=== PATIENT | female | born 1945 | race Caucasian/White ===

== ENCOUNTER → 2017-03-11 | Outpatient (CLI) | payer MEDICARE, OTHER ==
[~2017-03-11] MED LIST: ASPI81CH45 OR; LACTCAP OR; LISI10TA6 PO; METF-370 OR; METF500T PO; OME20GT GT; SIMV-8 OR
== END | disposition home or self-care (01) ==
LOC: LAB 09:10
PROVIDERS: ATTEND Family Medicine
DX: I10 Essential (primary) hypertension (principal); E78.5 Hyperlipidemia, unspecified; E11.9 Type 2 diabetes mellitus without complications
CPT/HCPCS: 36415; 83036

== ENCOUNTER → 2017-10-14 | Outpatient (CLI) | payer MEDICARE, OTHER | END | disposition home or self-care (01) | LOC: LAB 10:06 | PROVIDERS: ATTEND Family Medicine | DX: E11.22 Type 2 diabetes mellitus with diabetic chronic kidney disease (principal); I12.9 Hypertensive chronic kidney disease with stage 1 through stage 4 chronic kidney disease, or unspecified chronic kidney disease; N18.3 Chronic kidney disease, stage 3 (moderate); E78.5 Hyperlipidemia, unspecified | CPT/HCPCS: 36415; 82947; 83036 ==

== ENCOUNTER → 2018-01-26 | Outpatient (CLI) | payer MEDICARE, OTHER ==
[2018-01-26 10:04] LABS: Basophils # (auto) 0 uL; Basophils % (auto) 0.7 % (0.0-2.0); Eosinophils # (auto) 0.1 uL; Eosinophils % (auto) 2.7 % (0.0-7.0); Hematocrit 40.9 % (36.0-46.0); Hemoglobin 13.4 g/dL (12.2-16.2); Lymphocytes # (auto) 1.4 uL; Lymphocytes % (auto) 29.1 % (10.0-50.0); Mean Corpuscular Hemoglobin 28.9 pg (28.0-32.0); Mean Corpuscular Hgb Conc. 32.7 g/dL (32.0-36.0); Mean Corpuscular Volume 88.3 fL (80.0-100.0); Monocytes # (auto) 0.3 uL; Monocytes % (auto) 6.5 % (0.0-12.0); Neutrophils # (auto) 2.9 uL; Nucleated Red Blood Cells % 0.1 %; Platelet Count (auto) 212 10^3/uL (140-450); Red Blood Cells 4.64 10^6/uL (4.0-5.20); Red Cell Distribution Width 15.3 % (11.8-14.3); White Blood Cell 4.8 10^3/uL (4.4-10.8)
[2018-01-26 10:27] LABS: Urine Bacteria MOD /hpf (None Seen); Urine Blood Negative /uL (Negative); Urine WBC 56 /hpf (0 - 5); Urine WBC Clumps PRESENT /hpf (None Seen)
[2018-01-26 10:33] LABS: Albumin 3.9 g/dL (3.4-5.0); BUN/Creatinine Ratio 16.7; Bilirubin, Total 0.6 mg/dL (0.2-1.0); Calcium 8.7 mg/dL (8.5-10.1); Potassium 4.5 mmol/L (3.5-5.1); Total Protein 7.7 g/dL (6.4-8.2)
== END | disposition home or self-care (01) ==
LOC: LAB 09:40
PROVIDERS: ATTEND Nurse Practitioner
DX: E11.22 Type 2 diabetes mellitus with diabetic chronic kidney disease (principal); I12.9 Hypertensive chronic kidney disease with stage 1 through stage 4 chronic kidney disease, or unspecified chronic kidney disease; N18.3 Chronic kidney disease, stage 3 (moderate); E78.5 Hyperlipidemia, unspecified
CPT/HCPCS: 36415; 80053; 80061; 81001; 82043; 82306; 82607; 83036; 84443; 85025

== ENCOUNTER 2018-03-15 14:59 | Emergency (ER) | payer MEDICARE, OTHER ==
[~2018-03-15] VITALS: Ht 152.4 cm; Wt 85.3 kg
[2018-03-15 16:14] LABS: Urine Bacteria FEW /hpf (None Seen); Urine Blood Negative /uL (Negative); Urine Specific Gravity 1.028 (1.001-1.035); Urine WBC 67 /hpf (0 - 5)
[2018-03-15] MEDS: KETOROLAC TROMETH 60MG/2ML VIAL IM ONE (16:59)
[2018-03-15] MEDS: cefTRIAXone SOD 1,000 MG VL IM ONE (16:59)
[2018-03-15] MEDS: LIDOCAINE 1% HCL (LOCAL ANESTH.) INJ 20ML MDV ONE (17:00)
[2018-03-15 17:25] VITALS: BP 115/69
== END 2018-03-15 17:25 | disposition home or self-care (01) ==
LOC: ER 15:07
DX: M54.9 Dorsalgia, unspecified (principal); E11.9 Type 2 diabetes mellitus without complications; K21.9 Gastro-esophageal reflux disease without esophagitis; E78.5 Hyperlipidemia, unspecified; I10 Essential (primary) hypertension; Z90.49 Acquired absence of other specified parts of digestive tract; Z87.442 Personal history of urinary calculi; Z79.82 Long term (current) use of aspirin; Z79.84 Long term (current) use of oral hypoglycemic drugs; Z79.899 Other long term (current) drug therapy
CPT/HCPCS: 71101; 74176; 81001; 96372; 99285; J0696; J1885; J2001

== ENCOUNTER → 2018-04-20 | Outpatient (CLI) | payer MEDICARE, OTHER ==
[2018-04-20 12:16] LABS: Urine Blood Negative /uL (Negative); Urine Specific Gravity 1.023 (1.001-1.035)
== END | disposition home or self-care (01) ==
LOC: LAB 10:17
PROVIDERS: ATTEND Internal Medicine Cardiovascular Disease
DX: N39.0 Urinary tract infection, site not specified (principal)
CPT/HCPCS: 81003; 87086

== ENCOUNTER → 2018-04-21 | Outpatient (CLI) | payer MEDICARE, OTHER | END | disposition home or self-care (01) | LOC: Rad HDHVI 16:03 | PROVIDERS: ATTEND Internal Medicine Cardiovascular Disease | DX: I35.1 Nonrheumatic aortic (valve) insufficiency (principal); I10 Essential (primary) hypertension | CPT/HCPCS: 93306 ==

== ENCOUNTER → 2018-04-28 | Outpatient (CLI) | payer MEDICARE, OTHER ==
[~2018-04-28] VITALS: Ht 152.4 cm; Wt 84.8 kg
[~2018-04-28] MED LIST changes: +ADENOSINE 71 MG in GIVE UN-DILUTED 0 ML IV ONE; +ADENOSINE 90 MG/30 ML INJ IV ONE
== END | disposition home or self-care (01) ==
LOC: Rad HDHVI 10:28
PROVIDERS: ATTEND Internal Medicine Cardiovascular Disease
DX: Z01.810 Encounter for preprocedural cardiovascular examination (principal); E11.9 Type 2 diabetes mellitus without complications; E78.2 Mixed hyperlipidemia; I47.1 Supraventricular tachycardia
CPT/HCPCS: 78452; 93005; 96374; 96375; A9500; J0153

== ENCOUNTER → 2018-07-07 | Outpatient (CLI) | payer MEDICARE, OTHER ==
[~2018-07-07] MED LIST changes: -ADENOSINE 71 MG in GIVE UN-DILUTED 0 ML IV ONE; -ADENOSINE 90 MG/30 ML INJ IV ONE
[2018-07-07 10:09] LABS: Basophils # (auto) 0 uL; Basophils % (auto) 0.6 % (0.0-2.0); Eosinophils # (auto) 0.1 uL; Eosinophils % (auto) 3.1 % (0.0-7.0); Hematocrit 40.7 % (36.0-46.0); Hemoglobin 13.5 g/dL (12.2-16.2); Lymphocytes # (auto) 1.2 uL; Lymphocytes % (auto) 33.7 % (10.0-50.0); Mean Corpuscular Hemoglobin 28.9 pg (28.0-32.0); Mean Corpuscular Hgb Conc. 33.1 g/dL (32.0-36.0); Mean Corpuscular Volume 87.5 fL (80.0-100.0); Monocytes # (auto) 0.3 uL; Monocytes % (auto) 7.5 % (0.0-12.0); Neutrophils # (auto) 1.9 uL; Neutrophils % (auto) 55.1 % (37.0-80.0); Nucleated Red Blood Cells % 0.1 %; Platelet Count (auto) 190 10^3/uL (140-450); Red Blood Cells 4.65 10^6/uL (4.0-5.20); Red Cell Distribution Width 14.8 % (11.8-14.3); White Blood Cell 3.5 10^3/uL (4.4-10.8)
[2018-07-07 10:24] LABS: Urine Bacteria FEW /hpf (None Seen); Urine Blood Negative /uL (Negative); Urine Specific Gravity 1.019 (1.001-1.035); Urine WBC 42 /hpf (0 - 5)
[2018-07-07 11:49] LABS: Albumin 3.9 g/dL (3.4-5.0); Calcium 9.1 mg/dL (8.5-10.1); Potassium 4.7 mmol/L (3.5-5.1)
[2018-07-07 11:55] LABS: BUN/Creatinine Ratio 14.5; Bilirubin, Total 0.6 mg/dL (0.2-1.0); Total Protein 7.5 g/dL (6.4-8.2)
== END | disposition home or self-care (01) ==
LOC: LAB 09:46
PROVIDERS: ATTEND Nurse Practitioner
DX: E11.9 Type 2 diabetes mellitus without complications (principal); E78.5 Hyperlipidemia, unspecified
CPT/HCPCS: 36415; 80053; 80061; 81001; 82043; 83036; 85025

== ENCOUNTER → 2018-11-10 | Outpatient (CLI) | payer MEDICARE, OTHER ==
[2018-11-10 10:01] LABS: Basophils # (auto) 0.1 uL; Basophils % (auto) 1.1 % (0.0-2.0); Eosinophils # (auto) 0.1 uL; Eosinophils % (auto) 2.8 % (0.0-7.0); Hematocrit 39.6 % (36.0-46.0); Hemoglobin 13.1 g/dL (12.2-16.2); Lymphocytes # (auto) 1.3 uL; Lymphocytes % (auto) 26.9 % (10.0-50.0); Mean Corpuscular Hemoglobin 28.6 pg (28.0-32.0); Mean Corpuscular Volume 86.8 fL (80.0-100.0); Monocytes # (auto) 0.4 uL; Monocytes % (auto) 7.5 % (0.0-12.0); Neutrophils % (auto) 61.7 % (37.0-80.0); Platelet Count (auto) 192 10^3/uL (140-450); Red Blood Cells 4.57 10^6/uL (4.0-5.20); White Blood Cell 4.8 10^3/uL (4.4-10.8)
[2018-11-10 10:02] LABS: Urine Bacteria NONE SEEN /hpf (None Seen); Urine Blood Negative /uL (Negative); Urine Specific Gravity 1.015 (1.001-1.035); Urine WBC 3 /hpf (0 - 5)
[2018-11-10 10:22] LABS: Albumin 3.9 g/dL (3.4-5.0); BUN/Creatinine Ratio 21.1; Calcium 9.3 mg/dL (8.5-10.1)
[2018-11-10 10:26] LABS: Bilirubin, Total 0.5 mg/dL (0.2-1.0); Total Protein 7.4 g/dL (6.4-8.2)
== END | disposition home or self-care (01) ==
LOC: LAB 09:26
PROVIDERS: ATTEND Nurse Practitioner
DX: E78.5 Hyperlipidemia, unspecified (principal); E11.49 Type 2 diabetes mellitus with other diabetic neurological complication
CPT/HCPCS: 36415; 80053; 80061; 81001; 82043; 83036; 84443; 85025

== ENCOUNTER → 2019-02-21 | Outpatient (CLI) | payer MEDICARE, OTHER ==
[2019-02-21 08:24] LABS: Basophils # (auto) 0 uL; Basophils % (auto) 0.6 % (0.0-2.0); Eosinophils # (auto) 0.1 uL; Eosinophils % (auto) 2.8 % (0.0-7.0); Hematocrit 39.7 % (36.0-46.0); Lymphocytes # (auto) 1.2 uL; Lymphocytes % (auto) 22.4 % (10.0-50.0); Mean Corpuscular Hemoglobin 28.3 pg (28.0-32.0); Mean Corpuscular Hgb Conc. 32.7 g/dL (32.0-36.0); Mean Corpuscular Volume 86.6 fL (80.0-100.0); Monocytes # (auto) 0.3 uL; Monocytes % (auto) 5.2 % (0.0-12.0); Neutrophils # (auto) 3.6 uL; Platelet Count (auto) 217 10^3/uL (140-450); Red Blood Cells 4.59 10^6/uL (4.0-5.20); Red Cell Distribution Width 14.8 % (11.8-14.3); White Blood Cell 5.2 10^3/uL (4.4-10.8)
[2019-02-21 09:02] LABS: Albumin 3.6 g/dL (3.4-5.0); Calcium 9.1 mg/dL (8.5-10.1); Potassium 4.3 mmol/L (3.5-5.1)
[2019-02-21 09:07] LABS: BUN/Creatinine Ratio 14.4; Bilirubin, Total 0.4 mg/dL (0.2-1.0); Total Protein 7.4 g/dL (6.4-8.2)
== END | disposition home or self-care (01) ==
LOC: LAB 08:11
PROVIDERS: ATTEND Nurse Practitioner
DX: E78.5 Hyperlipidemia, unspecified (principal); E11.9 Type 2 diabetes mellitus without complications
CPT/HCPCS: 36415; 80053; 80061; 83036; 85025

== ENCOUNTER → 2019-08-31 | Outpatient (CLI) | payer MEDICARE, OTHER ==
[2019-08-31 08:42] LABS: Basophils # (auto) 0 10 ^3/uL (0-0.2); Basophils % (auto) 0.8 % (0.0-2.0); Eosinophils # (auto) 0.1 10 ^3/uL (0-0.8); Eosinophils % (auto) 2.6 % (0.0-7.0); Hematocrit 38.2 % (36.0-46.0); Hemoglobin 12.7 g/dL (12.2-16.2); Lymphocytes # (auto) 1.3 10 ^3/uL (0.4-5.4); Mean Corpuscular Hemoglobin 28.8 pg (28.0-32.0); Mean Corpuscular Hgb Conc. 33.2 g/dL (32.0-36.0); Mean Corpuscular Volume 86.5 fL (80.0-100.0); Monocytes # (auto) 0.3 10 ^3/uL (0-1.3); Monocytes % (auto) 5.7 % (0.0-12.0); Neutrophils % (auto) 62.9 % (37.0-80.0); Platelet Count (auto) 194 10^3/uL (140-450); Red Blood Cells 4.42 10^6/uL (4.0-5.20); Red Cell Distribution Width 14.8 % (11.8-14.3); White Blood Cell 4.7 10^3/uL (4.4-10.8)
[2019-08-31 08:44] LABS: Urine Bacteria NONE SEEN /hpf (None Seen); Urine Blood Negative /uL (Negative); Urine WBC 70 /hpf (0 - 5)
[2019-08-31 10:02] LABS: Albumin 3.6 g/dL (3.4-5.0); BUN/Creatinine Ratio 17.2; Calcium 8.8 mg/dL (8.5-10.1); Potassium 4.3 mmol/L (3.5-5.1)
[2019-08-31 10:07] LABS: Bilirubin, Total 0.4 mg/dL (0.2-1.0); Total Protein 7.2 g/dL (6.4-8.2)
== END | disposition home or self-care (01) ==
LOC: LAB 08:11
PROVIDERS: ATTEND Nurse Practitioner
DX: E11.9 Type 2 diabetes mellitus without complications (principal); E78.5 Hyperlipidemia, unspecified
CPT/HCPCS: 36415; 80053; 80061; 81001; 82043; 83036; 84443; 85025

== ENCOUNTER → 2019-11-24 | Day surgery (SDC) | payer MEDICARE, OTHER ==
[2019-11-22 10:57] LABS: Basophils # (auto) 0 10 ^3/uL (0-0.2); Basophils % (auto) 0.7 % (0.0-2.0); Eosinophils # (auto) 0.2 10 ^3/uL (0-0.8); Eosinophils % (auto) 4.5 % (0.0-7.0); Hematocrit 38.2 % (36.0-46.0); Hemoglobin 12.5 g/dL (12.2-16.2); Lymphocytes # (auto) 1.5 10 ^3/uL (0.4-5.4); Lymphocytes % (auto) 28.3 % (10.0-50.0); Mean Corpuscular Hemoglobin 28.1 pg (28.0-32.0); Mean Corpuscular Hgb Conc. 32.8 g/dL (32.0-36.0); Mean Corpuscular Volume 85.8 fL (80.0-100.0); Monocytes # (auto) 0.3 10 ^3/uL (0-1.3); Monocytes % (auto) 5.5 % (0.0-12.0); Neutrophils # (auto) 3.3 10 ^3/uL (1.6-8.6); Nucleated Red Blood Cells % 0.1 %; Platelet Count (auto) 218 10^3/uL (140-450); Red Blood Cells 4.45 10^6/uL (4.0-5.20); Red Cell Distribution Width 14.9 % (11.8-14.3); White Blood Cell 5.4 10^3/uL (4.4-10.8)
[2019-11-22 11:15] LABS: INR 1.01 (0.9-1.15); Partial Thromboplastin Time 23.8 sec (23.64-32.05)
[~2019-11-24] VITALS: Ht 152.4 cm; Wt 85.3 kg
[~2019-11-24] MED LIST changes: -ASPI81CH45 OR; +DICY10CA PO; +GLIP5TAB12 PO; -LACTCAP OR; +LIDOCAINE VISCOUS 2% 15ML UD ONE; +LISI-275 PO; -LISI10TA6 PO; -METF-370 OR; +METO25TA93 PO; -OME20GT GT; +PANT40TA2 PO; -SIMV-8 OR; +SIMV-8 PO; +SODIUM CHLORIDE LOCK 10 ML ONE; +SUCR1TAB38 PO; +TOLT2CAP7 PO; +diphenhdrAMINE HCL 50 MG/1 ML VL ONE
[2019-11-24] MEDS: MIDAZOLAM HCL 5 MG/ML-1ML VIAL ONE ×3 (13:50→13:53)
[2019-11-24] MEDS: fentaNYL CITRATE 100 MCG/2 ML VL ONE ×2 (13:50→13:51)
[2019-11-24 14:31] VITALS: BP 99/57
== END | disposition home or self-care (01) ==
LOC: GI 10:01
PROVIDERS: ATTEND Internal Medicine Gastroenterology
DX: R10.13 Epigastric pain (principal); K29.60 Other gastritis without bleeding; K44.9 Diaphragmatic hernia without obstruction or gangrene; Z98.890 Other specified postprocedural states; Z79.899 Other long term (current) drug therapy; Z11.59 Encounter for screening for other viral diseases
CPT/HCPCS: 36415; 43239; 82962; 85025; 85610; 85730; 88305; 88342; J2250; J3010; J7030; U0003; 99152

== ENCOUNTER → 2020-04-11 | Outpatient (CLI) | payer MEDICARE, OTHER ==
[~2020-04-11] MED LIST changes: -LIDOCAINE VISCOUS 2% 15ML UD ONE; -SODIUM CHLORIDE LOCK 10 ML ONE; +SUCR1TAB22 PO; -SUCR1TAB38 PO; -diphenhdrAMINE HCL 50 MG/1 ML VL ONE
[2020-04-11 10:06] LABS: Basophils # (auto) 0 10 ^3/uL (0-0.2); Basophils % (auto) 0.8 % (0.0-2.0); Eosinophils # (auto) 0.2 10 ^3/uL (0-0.8); Eosinophils % (auto) 4.1 % (0.0-7.0); Hemoglobin 12.5 g/dL (12.2-16.2); Lymphocytes # (auto) 1.4 10 ^3/uL (0.4-5.4); Lymphocytes % (auto) 28.7 % (10.0-50.0); Mean Corpuscular Hemoglobin 29.3 pg (28.0-32.0); Mean Corpuscular Hgb Conc. 32.9 g/dL (32.0-36.0); Mean Corpuscular Volume 88.8 fL (80.0-100.0); Monocytes # (auto) 0.2 10 ^3/uL (0-1.3); Monocytes % (auto) 4.9 % (0.0-12.0); Neutrophils # (auto) 3.1 10 ^3/uL (1.6-8.6); Neutrophils % (auto) 61.5 % (37.0-80.0); Nucleated Red Blood Cells % 0.1 %; Platelet Count (auto) 218 10^3/uL (140-450); Red Blood Cells 4.28 10^6/uL (4.0-5.20); Red Cell Distribution Width 15.3 % (11.8-14.3)
[2020-04-11 10:20] LABS: Urine Bacteria NONE SEEN /hpf (None Seen); Urine Blood Negative /uL (Negative); Urine Hyaline Cast FEW /lpf (0 - 2); Urine Mucus FEW (None Seen); Urine WBC 92 /hpf (0 - 5)
[2020-04-11 10:37] LABS: Cholesterol 167 mg/dL (< 200); HDL Cholesterol 59 mg/dL (40-59); LDL Cholesterol 89 mg/dL (< 100); Triglycerides 159 mg/dL (< 150)
== END | disposition home or self-care (01) ==
LOC: LAB 09:35
PROVIDERS: ATTEND Nurse Practitioner
DX: E11.9 Type 2 diabetes mellitus without complications (principal); E78.5 Hyperlipidemia, unspecified
CPT/HCPCS: 36415; 80061; 81001; 82043; 83036; 85025

== ENCOUNTER 2020-05-05 19:06 | Emergency (ER) | payer MEDICARE, OTHER ==
[~2020-05-05] VITALS: Ht 152.4 cm; Wt 99.8 kg
[2020-05-05 19:57] LABS: Basophils # (auto) 0 10 ^3/uL (0-0.2); Basophils % (auto) 0.5 % (0.0-2.0); Eosinophils # (auto) 0.2 10 ^3/uL (0-0.8); Eosinophils % (auto) 3.4 % (0.0-7.0); Hematocrit 36.6 % (36.0-46.0); Hemoglobin 11.9 g/dL (12.2-16.2); Lymphocytes # (auto) 1.9 10 ^3/uL (0.4-5.4); Lymphocytes % (auto) 35.2 % (10.0-50.0); Mean Corpuscular Hgb Conc. 32.5 g/dL (32.0-36.0); Mean Corpuscular Volume 89.3 fL (80.0-100.0); Monocytes # (auto) 0.3 10 ^3/uL (0-1.3); Monocytes % (auto) 5.6 % (0.0-12.0); Neutrophils % (auto) 55.3 % (37.0-80.0); Platelet Count (auto) 211 10^3/uL (140-450); Red Cell Distribution Width 14.9 % (11.8-14.3); White Blood Cell 5.4 10^3/uL (4.4-10.8)
[2020-05-05 20:25] LABS: Potassium 4.6 mmol/L (3.5-5.1)
[2020-05-05 20:28] LABS: BUN/Creatinine Ratio 18.9; Bilirubin, Total 0.4 mg/dL (0.2-1.0); Total Protein 7.6 g/dL (6.4-8.2)
[2020-05-05 21:41] LABS: Urine Bacteria FEW /hpf (None Seen); Urine Blood Negative /uL (Negative); Urine Hyaline Cast FEW /lpf (0 - 2); Urine Specific Gravity 1.015 (1.001-1.035); Urine WBC 50 /hpf (0 - 5)
[2020-05-06 00:12] VITALS: BP 115/69
[2020-05-06] MEDS ORDERED: HYDROcodone-ACET 5/325MG TAB PO ONE (00:30)
== END 2020-05-06 00:45 | disposition home or self-care (01) ==
LOC: ER 19:09
DX: N39.0 Urinary tract infection, site not specified (principal); M54.5 Low back pain; G89.29 Other chronic pain; E11.9 Type 2 diabetes mellitus without complications; K21.9 Gastro-esophageal reflux disease without esophagitis; E78.5 Hyperlipidemia, unspecified; I10 Essential (primary) hypertension; Z90.49 Acquired absence of other specified parts of digestive tract; Z79.899 Other long term (current) drug therapy
CPT/HCPCS: 36415; 74176; 80053; 81001; 85025

== ENCOUNTER → 2020-08-15 | Outpatient (CLI) | payer MEDICARE, OTHER ==
[~2020-08-15] MED LIST changes: +TOLT2CAP PO; -TOLT2CAP7 PO
[2020-08-15 15:00] LABS: Urine Bacteria NONE SEEN /hpf (None Seen); Urine Blood Negative /uL (Negative); Urine Specific Gravity 1.025 (1.001-1.035); Urine WBC 20 /hpf (0 - 5)
== END | disposition home or self-care (01) ==
LOC: LAB 14:28
PROVIDERS: ATTEND Nurse Practitioner
DX: N39.0 Urinary tract infection, site not specified (principal)
CPT/HCPCS: 81001; 87086

== ENCOUNTER → 2020-09-03 | Outpatient (CLI) | payer MEDICARE, OTHER ==
[2020-09-03 17:13] LABS: Urine Bacteria FEW /hpf (None Seen); Urine Blood Negative /uL (Negative); Urine Specific Gravity 1.011 (1.001-1.035); Urine WBC 44 /hpf (0 - 5)
== END | disposition home or self-care (01) ==
LOC: LAB 16:42
PROVIDERS: ATTEND Nurse Practitioner
DX: N39.0 Urinary tract infection, site not specified (principal)
CPT/HCPCS: 81001; 87086

== ENCOUNTER 2020-09-13 18:11 | Emergency (ER) | payer MEDICARE, OTHER ==
[~2020-09-13] VITALS: Ht 152.4 cm; Wt 90.7 kg
[2020-09-13 19:20] VITALS: BP 127/67
== END 2020-09-13 19:47 | disposition home or self-care (01) ==
LOC: ER 18:11
DX: L03.012 Cellulitis of left finger (principal); L02.512 Cutaneous abscess of left hand; E11.9 Type 2 diabetes mellitus without complications; K21.9 Gastro-esophageal reflux disease without esophagitis; E78.5 Hyperlipidemia, unspecified; I10 Essential (primary) hypertension; Z90.49 Acquired absence of other specified parts of digestive tract; Z87.442 Personal history of urinary calculi
CPT/HCPCS: 10060

== ENCOUNTER → 2020-11-18 | Outpatient (CLI) | payer MEDICARE, OTHER ==
[2020-11-18 15:41] LABS: Basophils # (auto) 0.1 10 ^3/uL (0-0.2); Basophils % (auto) 0.8 % (0.0-2.0); Eosinophils # (auto) 0.3 10 ^3/uL (0-0.8); Eosinophils % (auto) 4.3 % (0.0-7.0); Hematocrit 37.2 % (36.0-46.0); Hemoglobin 12.5 g/dL (12.2-16.2); Lymphocytes # (auto) 1.7 10 ^3/uL (0.4-5.4); Lymphocytes % (auto) 27.2 % (10.0-50.0); Mean Corpuscular Hemoglobin 29.8 pg (28.0-32.0); Mean Corpuscular Hgb Conc. 33.5 g/dL (32.0-36.0); Mean Corpuscular Volume 88.8 fL (80.0-100.0); Monocytes # (auto) 0.3 10 ^3/uL (0-1.3); Monocytes % (auto) 5.1 % (0.0-12.0); Neutrophils # (auto) 3.9 10 ^3/uL (1.6-8.6); Neutrophils % (auto) 62.6 % (37.0-80.0); Nucleated Red Blood Cells % 0.1 %; Platelet Count (auto) 212 10^3/uL (140-450); Red Blood Cells 4.19 10^6/uL (4.0-5.20); Red Cell Distribution Width 14.1 % (11.8-14.3); Urine Blood Negative /uL (Negative); Urine Specific Gravity 1.025 (1.001-1.035); White Blood Cell 6.2 10^3/uL (4.4-10.8)
[2020-11-18 15:51] LABS: Albumin 3.9 g/dL (3.4-5.0); Calcium 9.2 mg/dL (8.5-10.1); Potassium 5.1 mmol/L (3.5-5.1)
[2020-11-18 15:56] LABS: BUN/Creatinine Ratio 19.8; Bilirubin, Direct 0.1 mg/dL (0-0.2); Bilirubin, Total 0.4 mg/dL (0.2-1.0); Total Protein 7.3 g/dL (6.4-8.2)
== END | disposition home or self-care (01) ==
LOC: LAB 11:08
PROVIDERS: ATTEND Internal Medicine Cardiovascular Disease
DX: D51.3 Other dietary vitamin B12 deficiency anemia (principal); D64.9 Anemia, unspecified; I10 Essential (primary) hypertension; E11.9 Type 2 diabetes mellitus without complications; E55.9 Vitamin D deficiency, unspecified; R00.2 Palpitations; R53.1 Weakness; R30.0 Dysuria
CPT/HCPCS: 36415; 80048; 80061; 80076; 81003; 82306; 83036; 83880; 84443; 85025; 87086

== ENCOUNTER → 2020-12-02 | Outpatient (CLI) | payer MEDICARE, OTHER | END | disposition home or self-care (01) | LOC: Rad HDHVI 15:06 | PROVIDERS: ATTEND Internal Medicine Cardiovascular Disease | DX: R07.89 Other chest pain (principal); E78.2 Mixed hyperlipidemia | CPT/HCPCS: 93306 ==

== ENCOUNTER → 2020-12-18 | Outpatient (CLI) | payer MEDICARE, OTHER ==
[~2020-12-18] VITALS: Ht 152.4 cm; Wt 92.1 kg
== END | disposition home or self-care (01) ==
LOC: Rad HDHVI 13:03
PROVIDERS: ATTEND Internal Medicine Cardiovascular Disease
DX: I10 Essential (primary) hypertension (principal); R06.02 Shortness of breath; R07.89 Other chest pain; E11.9 Type 2 diabetes mellitus without complications; E78.5 Hyperlipidemia, unspecified; Z82.49 Family history of ischemic heart disease and other diseases of the circulatory system
CPT/HCPCS: 78452; 93017; 96374; A9500

== ENCOUNTER → 2021-01-21 | Outpatient (CLI) | payer MEDICARE, OTHER ==
[~2021-01-21] MED LIST changes: +ASPI-543 PO; +CETI1TAB36 PO; +DULA0.5I SC; +FURO1TAB31 PO; +GABA100C9 PO; +GABA300C10 PO; +GLIP10TA9 PO; +METF-370 PO; +METO5TAB67 PO; +NAPR-505 PO; +POTA10TA51 PO
[2021-01-21 10:30] VITALS: BP 98/63
[2021-01-21 10:39] VITALS: BP 95/48
[2021-01-21 11:37] LABS: Basophils # (auto) 0 10 ^3/uL (0-0.2); Basophils % (auto) 0.5 % (0.0-2.0); Eosinophils # (auto) 0.3 10 ^3/uL (0-0.8); Hematocrit 35.8 % (36.0-46.0); Lymphocytes # (auto) 1.4 10 ^3/uL (0.4-5.4); Lymphocytes % (auto) 25.4 % (10.0-50.0); Mean Corpuscular Hemoglobin 29.8 pg (28.0-32.0); Mean Corpuscular Hgb Conc. 33.4 g/dL (32.0-36.0); Mean Corpuscular Volume 89.2 fL (80.0-100.0); Monocytes # (auto) 0.4 10 ^3/uL (0-1.3); Monocytes % (auto) 6.6 % (0.0-12.0); Neutrophils # (auto) 3.5 10 ^3/uL (1.6-8.6); Neutrophils % (auto) 62.5 % (37.0-80.0); Red Blood Cells 4.02 10^6/uL (4.0-5.20); Red Cell Distribution Width 14.7 % (11.8-14.3); White Blood Cell 5.6 10^3/uL (4.4-10.8)
[2021-01-21 11:43] LABS: BUN/Creatinine Ratio 20.4; Calcium 9.4 mg/dL (8.5-10.1); Potassium 4.7 mmol/L (3.5-5.1)
[2021-01-21 11:53] LABS: INR 0.97 (0.9-1.15); Partial Thromboplastin Time 22.8 sec (23.0-31.2)
== END | disposition home or self-care (01) ==
LOC: Rad HDHVI 10:14
PROVIDERS: ATTEND Internal Medicine Cardiovascular Disease
DX: Z01.812 Encounter for preprocedural laboratory examination (principal); R06.02 Shortness of breath; R07.9 Chest pain, unspecified; I70.0 Atherosclerosis of aorta; M85.80 Other specified disorders of bone density and structure, unspecified site
CPT/HCPCS: 36415; 71046; 80048; 85025; 85610; 85730; 93005; G0463

== ENCOUNTER 2021-01-23 07:52 | Day surgery (SDC) | payer MEDICARE, OTHER ==
[~2021-01-23] VITALS: Ht 152.4 cm; Wt 91.6 kg
[~2021-01-23 07:52] MED LIST changes: -GLIP5TAB12 PO; -METF500T PO; -SIMV-8 PO
[2021-01-23] MEDS ORDERED: LIDOCAINE 2%HCL (LOCAL ANESTH.) INJ 20ML MDV ONE (09:29)
[2021-01-23] MEDS ORDERED: VERAPAMIL 2.5MG/ML INJ 2ML VIAL IV ONE (10:12)
[2021-01-23] MEDS ORDERED: ANGIOMAX 250 MG VIAL IV ONE (10:12)
[2021-01-23] MEDS ORDERED: MIDAZOLAM HCL 2MG/2ML 2ml VIAL (1mg/ml) ONE (10:12)
[2021-01-23] MEDS ORDERED: fentaNYL CITRATE 100 MCG/2 ML VL ONE (10:12)
[2021-01-23] MEDS ORDERED: HEPARIN SODIUM (PORCINE) 5000 UNITS/ML 1ML VIAL ONE (10:12)
[2021-01-23] MEDS ORDERED: SODIUM CHL 0.9% 0 ML ONE (10:13)
[2021-01-23] MEDS ORDERED: ONDANSETRON HCL 4 MG/2 ML VIAL IV PRN (11:00)
[2021-01-23] MEDS ORDERED: HYDROcodone-ACET 5/325MG TAB PO PRN (11:00)
[2021-01-23] MEDS ORDERED: ACETAMINOPHEN 500 MG TAB PO PRN (11:00)
== END 2021-01-23 14:00 | disposition home or self-care (01) ==
LOC: CATH 07:52
PROVIDERS: ATTEND Internal Medicine Cardiovascular Disease
DX: R94.39 Abnormal result of other cardiovascular function study (principal); E11.40 Type 2 diabetes mellitus with diabetic neuropathy, unspecified; E11.22 Type 2 diabetes mellitus with diabetic chronic kidney disease; I12.9 Hypertensive chronic kidney disease with stage 1 through stage 4 chronic kidney disease, or unspecified chronic kidney disease; N18.30 Chronic kidney disease, stage 3 unspecified; Z96.659 Presence of unspecified artificial knee joint; Z20.822 Contact with and (suspected) exposure to COVID-19; Z90.49 Acquired absence of other specified parts of digestive tract; Z98.890 Other specified postprocedural states; Z68.39 Body mass index [BMI] 39.0-39.9, adult
CPT/HCPCS: 93458; C1751; C1760; C1769; C1887; C1894; J1644; J2250; J3010; U0003; 99152

== ENCOUNTER 2021-04-11 13:23 | Day surgery (SDC) | payer MEDICARE, OTHER ==
[2021-04-08 10:37] LABS: Basophils # (auto) 0 10 ^3/uL (0-0.2); Basophils % (auto) 0.5 % (0.0-2.0); Eosinophils # (auto) 0.1 10 ^3/uL (0-0.8); Eosinophils % (auto) 1.3 % (0.0-7.0); Hemoglobin 13.4 g/dL (12.2-16.2); Lymphocytes # (auto) 1.3 10 ^3/uL (0.4-5.4); Lymphocytes % (auto) 13.9 % (10.0-50.0); Mean Corpuscular Hemoglobin 29.4 pg (28.0-32.0); Mean Corpuscular Hgb Conc. 32.7 g/dL (32.0-36.0); Monocytes # (auto) 0.5 10 ^3/uL (0-1.3); Monocytes % (auto) 5.5 % (0.0-12.0); Neutrophils # (auto) 7.2 10 ^3/uL (1.6-8.6); Neutrophils % (auto) 78.8 % (37.0-80.0); Red Blood Cells 4.55 10^6/uL (4.0-5.20); White Blood Cell 9.2 10^3/uL (4.4-10.8)
[2021-04-08 11:13] LABS: Calcium 9.9 mg/dL (8.5-10.1); Potassium 5.1 mmol/L (3.5-5.1)
[2021-04-08 11:18] LABS: Albumin 3.9 g/dL (3.4-5.0); BUN/Creatinine Ratio 23.4; Bilirubin, Total 0.3 mg/dL (0.2-1.0); Total Protein 7.9 g/dL (6.4-8.2)
[~2021-04-11] VITALS: Ht 152.4 cm; Wt 86.6 kg
[~2021-04-11 13:23] MED LIST changes: +CALC667C5 PO; +CHOL20007 OR; +CYAN1TAB14 PO; +MAGN400T40 PO; +OMEG1CAP31 PO
[2021-04-11] MEDS ORDERED: SODIUM CHLORIDE LOCK 10 ML ONE (14:02)
[2021-04-11] MEDS ORDERED: diphenhdrAMINE HCL 50 MG/1 ML VL ONE (14:03)
[2021-04-11] MEDS: fentaNYL CITRATE 100 MCG/2 ML VL ONE ×2 (14:09→14:12)
[2021-04-11] MEDS: MIDAZOLAM HCL 5 MG/ML-1ML VIAL ONE ×2 (14:09→14:12)
[2021-04-11 15:00] VITALS: BP 133/61
== END 2021-04-11 15:10 | disposition home or self-care (01) ==
LOC: GI 13:23
PROVIDERS: ATTEND Internal Medicine Gastroenterology
DX: R19.5 Other fecal abnormalities (principal); K57.30 Diverticulosis of large intestine without perforation or abscess without bleeding; K64.8 Other hemorrhoids; E11.22 Type 2 diabetes mellitus with diabetic chronic kidney disease; N18.9 Chronic kidney disease, unspecified; E11.42 Type 2 diabetes mellitus with diabetic polyneuropathy; K21.9 Gastro-esophageal reflux disease without esophagitis; Z98.890 Other specified postprocedural states; Z79.899 Other long term (current) drug therapy; Z86.010 Personal history of colon polyps; Z20.822 Contact with and (suspected) exposure to COVID-19
CPT/HCPCS: 36415; 45378; 80053; 82962; 85025; 88305; J1200; J2250; J3010; J7030; U0003; G0500

== ENCOUNTER 2021-08-17 11:47 | Emergency (ER) | payer MEDICARE, OTHER ==
[~2021-08-17] VITALS: Ht 152.4 cm; Wt 88.5 kg
[2021-08-17] MEDS ORDERED: ONDANSETRON HCL 4 MG/2 ML VIAL IV ONE (12:00)
[2021-08-17] MEDS ORDERED: MORPHINE SULFATE 4 MG/ML SYR/VIAL IV ONE (12:00)
[2021-08-17 12:35] LABS: Basophils # (auto) 0 10 ^3/uL (0-0.2); Basophils % (auto) 0.3 % (0.0-2.0); Eosinophils # (auto) 0.2 10 ^3/uL (0-0.8); Eosinophils % (auto) 2.9 % (0.0-7.0); Hemoglobin 11.4 g/dL (12.2-16.2); Lymphocytes # (auto) 1.4 10 ^3/uL (0.4-5.4); Lymphocytes % (auto) 23.8 % (10.0-50.0); Mean Corpuscular Hemoglobin 28.8 pg (28.0-32.0); Mean Corpuscular Hgb Conc. 32.7 g/dL (32.0-36.0); Monocytes # (auto) 0.4 10 ^3/uL (0-1.3); Monocytes % (auto) 7.4 % (0.0-12.0); Neutrophils # (auto) 3.9 10 ^3/uL (1.6-8.6); Neutrophils % (auto) 65.6 % (37.0-80.0); Red Blood Cells 3.97 10^6/uL (4.0-5.20); Red Cell Distribution Width 14.3 % (11.8-14.3)
[2021-08-17 12:50] LABS: Potassium 4.9 mmol/L (3.5-5.1)
[2021-08-17 12:53] LABS: Amylase 46 U/L (25-115); Lipase 206 U/L (73-393)
[2021-08-17 12:58] LABS: Albumin 3.1 g/dL (3.4-5.0); BUN/Creatinine Ratio 16.7; Bilirubin, Total 0.3 mg/dL (0.2-1.0); Calcium 8.7 mg/dL (8.5-10.1); Total Protein 6.6 g/dL (6.4-8.2)
[2021-08-17] MEDS ORDERED: ONDA-144 PO (13:53)
[2021-08-17 14:26] VITALS: BP 120/67
== END 2021-08-17 14:33 | disposition home or self-care (01) ==
LOC: ER 11:47
DX: R10.84 Generalized abdominal pain (principal); E11.9 Type 2 diabetes mellitus without complications; K21.9 Gastro-esophageal reflux disease without esophagitis; E78.5 Hyperlipidemia, unspecified; I10 Essential (primary) hypertension; Z90.49 Acquired absence of other specified parts of digestive tract; Z87.442 Personal history of urinary calculi
CPT/HCPCS: 36415; 74176; 80053; 82150; 83690; 84484; 85025; 93005

== ENCOUNTER → 2021-11-05 | Outpatient (CLI) | payer MEDICARE, OTHER ==
[~2021-11-05] VITALS: Ht 152.4 cm; Wt 88.5 kg
[~2021-11-05] MED LIST changes: +ONDA-144 PO
[2021-11-05 13:56] VITALS: BP 103/58
[2021-11-05 14:25] VITALS: BP 114/60
== END | disposition home or self-care (01) ==
LOC: Rad HDHVI 13:32
PROVIDERS: ATTEND Internal Medicine Cardiovascular Disease
DX: I11.0 Hypertensive heart disease with heart failure (principal); I50.43 Acute on chronic combined systolic (congestive) and diastolic (congestive) heart failure; E78.5 Hyperlipidemia, unspecified; E11.40 Type 2 diabetes mellitus with diabetic neuropathy, unspecified; Z82.49 Family history of ischemic heart disease and other diseases of the circulatory system; R06.02 Shortness of breath
CPT/HCPCS: 78472; 96374; 96375; A9505; G0463

== ENCOUNTER → 2021-12-24 | Outpatient (CLI) | payer MEDICARE, OTHER ==
[2021-12-24 14:23] LABS: Basophils # (auto) 0.1 10 ^3/uL (0-0.2); Basophils % (auto) 0.9 % (0.0-2.0); Eosinophils # (auto) 0.3 10 ^3/uL (0-0.8); Eosinophils % (auto) 4.4 % (0.0-7.0); Hematocrit 36.9 % (36.0-46.0); Hemoglobin 11.7 g/dL (12.2-16.2); Lymphocytes # (auto) 1.5 10 ^3/uL (0.4-5.4); Lymphocytes % (auto) 23.9 % (10.0-50.0); Mean Corpuscular Hemoglobin 28.6 pg (28.0-32.0); Mean Corpuscular Hgb Conc. 31.8 g/dL (32.0-36.0); Mean Corpuscular Volume 90.2 fL (80.0-100.0); Monocytes # (auto) 0.3 10 ^3/uL (0-1.3); Monocytes % (auto) 4.7 % (0.0-12.0); Neutrophils # (auto) 4.2 10 ^3/uL (1.6-8.6); Neutrophils % (auto) 66.1 % (37.0-80.0); Red Blood Cells 4.09 10^6/uL (4.0-5.20); Red Cell Distribution Width 14.5 % (11.8-14.3); White Blood Cell 6.4 10^3/uL (4.4-10.8)
[2021-12-24 14:38] LABS: INR 1.01 (0.9-1.15); Partial Thromboplastin Time 23.6 sec (23.6-33.0)
[2021-12-24 14:39] LABS: BUN/Creatinine Ratio 16.6; Calcium 9.5 mg/dL (8.5-10.1); Potassium 4.3 mmol/L (3.5-5.1)
== END | disposition home or self-care (01) ==
LOC: Rad HDHVI 09:55
PROVIDERS: ATTEND Internal Medicine Cardiovascular Disease
DX: E11.9 Type 2 diabetes mellitus without complications (principal); D64.9 Anemia, unspecified; I10 Essential (primary) hypertension; Z01.812 Encounter for preprocedural laboratory examination; Z79.01 Long term (current) use of anticoagulants
CPT/HCPCS: 36415; 71046; 80048; 83036; 85025; 85610; 85730; 93925

== ENCOUNTER → 2021-12-26 | Outpatient (CLI) | payer MEDICARE, OTHER | END | disposition home or self-care (01) | LOC: Rad HDHVI 13:39 | PROVIDERS: ATTEND Internal Medicine Cardiovascular Disease | DX: I08.8 Other rheumatic multiple valve diseases (principal); R07.89 Other chest pain | CPT/HCPCS: 93306 ==

== ENCOUNTER → 2022-01-02 | Outpatient (CLI) | payer MEDICARE, OTHER ==
[2022-01-02 17:09] LABS: Urine Blood Negative /uL (Negative); Urine Specific Gravity 1.029 (1.001-1.035)
== END | disposition home or self-care (01) ==
LOC: LAB 13:17
PROVIDERS: ATTEND Internal Medicine Cardiovascular Disease
DX: N39.0 Urinary tract infection, site not specified (principal)
CPT/HCPCS: 81003; 87086

== ENCOUNTER → 2022-03-13 | Outpatient (CLI) | payer MEDICARE, OTHER ==
[2022-03-13 08:59] LABS: Basophils # (auto) 0 10 ^3/uL (0-0.2); Basophils % (auto) 0.4 % (0.0-2.0); Eosinophils # (auto) 0.4 10 ^3/uL (0-0.8); Hematocrit 35.9 % (36.0-46.0); Hemoglobin 11.5 g/dL (12.2-16.2); Lymphocytes # (auto) 1.2 10 ^3/uL (0.4-5.4); Lymphocytes % (auto) 26.9 % (10.0-50.0); Mean Corpuscular Hemoglobin 28.6 pg (28.0-32.0); Mean Corpuscular Volume 89.2 fL (80.0-100.0); Monocytes # (auto) 0.3 10 ^3/uL (0-1.3); Monocytes % (auto) 7.4 % (0.0-12.0); Neutrophils # (auto) 2.7 10 ^3/uL (1.6-8.6); Neutrophils % (auto) 57.3 % (37.0-80.0); Nucleated Red Blood Cells % 0.1 %; Red Blood Cells 4.02 10^6/uL (4.0-5.20); Red Cell Distribution Width 15.1 % (11.8-14.3); White Blood Cell 4.6 10^3/uL (4.4-10.8)
[2022-03-13 09:59] LABS: Albumin 3.3 g/dL (3.4-5.0); BUN/Creatinine Ratio 21.6; Bilirubin, Total 0.4 mg/dL (0.2-1.0); Calcium 8.7 mg/dL (8.5-10.1); Total Protein 6.4 g/dL (6.4-8.2)
== END | disposition home or self-care (01) ==
LOC: LAB 08:43
PROVIDERS: ATTEND Nurse Practitioner
DX: E11.9 Type 2 diabetes mellitus without complications (principal); E78.5 Hyperlipidemia, unspecified
CPT/HCPCS: 36415; 80053; 80061; 82043; 83036; 85025

== ENCOUNTER → 2022-04-14 | Outpatient (CLI) | payer MEDICARE, OTHER | END | disposition home or self-care (01) | LOC: LAB 09:37 | PROVIDERS: ATTEND Internal Medicine Cardiovascular Disease | DX: E11.21 Type 2 diabetes mellitus with diabetic nephropathy (principal) | CPT/HCPCS: 36415; 83036 ==

== ENCOUNTER → 2022-07-30 | Outpatient (CLI) | payer MEDICARE, OTHER ==
[2022-07-30 11:54] LABS: Basophils # (auto) 0 10 ^3/uL (0-0.2); Basophils % (auto) 0.3 % (0.0-2.0); Eosinophils # (auto) 0 10 ^3/uL (0-0.8); Eosinophils % (auto) 0.2 % (0.0-7.0); Hematocrit 35.9 % (36.0-46.0); Hemoglobin 11.7 g/dL (12.2-16.2); Lymphocytes # (auto) 1.2 10 ^3/uL (0.4-5.4); Lymphocytes % (auto) 13.9 % (10.0-50.0); Mean Corpuscular Hemoglobin 28.5 pg (28.0-32.0); Mean Corpuscular Hgb Conc. 32.5 g/dL (32.0-36.0); Mean Corpuscular Volume 87.6 fL (80.0-100.0); Monocytes # (auto) 0.4 10 ^3/uL (0-1.3); Monocytes % (auto) 4.8 % (0.0-12.0); Neutrophils # (auto) 7.1 10 ^3/uL (1.6-8.6); Neutrophils % (auto) 80.8 % (37.0-80.0); Red Cell Distribution Width 14.5 % (11.8-14.3); Urine Blood Negative /uL (Negative); Urine Specific Gravity 1.027 (1.001-1.035); White Blood Cell 8.8 10^3/uL (4.4-10.8)
[2022-07-30 11:59] LABS: Albumin 3.8 g/dL (3.4-5.0); BUN/Creatinine Ratio 14.4; Calcium 8.9 mg/dL (8.5-10.1); Potassium 4.4 mmol/L (3.5-5.1)
[2022-07-30 12:06] LABS: Bilirubin, Total 0.7 mg/dL (0.2-1.0); Total Protein 6.7 g/dL (6.4-8.2)
== END | disposition home or self-care (01) ==
LOC: LAB 08:06
PROVIDERS: ATTEND Internal Medicine Cardiovascular Disease
DX: D51.3 Other dietary vitamin B12 deficiency anemia (principal); E55.9 Vitamin D deficiency, unspecified; D64.9 Anemia, unspecified; E11.9 Type 2 diabetes mellitus without complications; I10 Essential (primary) hypertension; R00.2 Palpitations; R53.1 Weakness; R30.0 Dysuria
CPT/HCPCS: 36415; 80053; 80061; 81003; 82306; 82607; 83036; 84439; 84443; 85025; 87086

== ENCOUNTER → 2023-05-19 | Outpatient (CLI) | payer MEDICARE, OTHER ==
[~2023-05-19] MED LIST changes: +GABA-1250 PO; +GABA-1308 PO; -GABA100C9 PO; -GABA300C10 PO; +OMEG-28 PO; -OMEG1CAP31 PO
== END | disposition home or self-care (01) ==
LOC: Rad HDHVI 08:53
PROVIDERS: ATTEND Internal Medicine Cardiovascular Disease
DX: I08.8 Other rheumatic multiple valve diseases (principal); I11.9 Hypertensive heart disease without heart failure; R06.02 Shortness of breath
CPT/HCPCS: 93306

== ENCOUNTER → 2023-06-16 | Outpatient (CLI) | payer MEDICARE, OTHER ==
[~2023-06-16] VITALS: Ht 152.4 cm; Wt 73.5 kg
[~2023-06-16] MED LIST changes: +ADENOSINE 62 MG in GIVE UN-DILUTED 0 ML IV ONE; +ADENOSINE 90 MG/30 ML INJ IV ONE
== END | disposition home or self-care (01) ==
LOC: Rad HDHVI 13:06
PROVIDERS: ATTEND Internal Medicine Cardiovascular Disease
DX: I12.9 Hypertensive chronic kidney disease with stage 1 through stage 4 chronic kidney disease, or unspecified chronic kidney disease (principal); N18.9 Chronic kidney disease, unspecified; E11.21 Type 2 diabetes mellitus with diabetic nephropathy; E11.40 Type 2 diabetes mellitus with diabetic neuropathy, unspecified; E11.22 Type 2 diabetes mellitus with diabetic chronic kidney disease; E78.00 Pure hypercholesterolemia, unspecified; I73.9 Peripheral vascular disease, unspecified; R06.02 Shortness of breath; Z82.49 Family history of ischemic heart disease and other diseases of the circulatory system
CPT/HCPCS: 78452; 93005; 96374; 96375; A9500; J0153

== ENCOUNTER → 2023-08-20 | Outpatient (CLI) | payer MEDICARE, OTHER ==
[~2023-08-20] MED LIST changes: -ADENOSINE 62 MG in GIVE UN-DILUTED 0 ML IV ONE; -ADENOSINE 90 MG/30 ML INJ IV ONE
[2023-08-20 15:38] LABS: Basophils # (auto) 0 10 ^3/uL (0-0.2); Eosinophils # (auto) 0.1 10 ^3/uL (0-0.8); Eosinophils % (auto) 2.1 % (0.0-7.0); Lymphocytes # (auto) 1.8 10 ^3/uL (0.4-5.4); Monocytes # (auto) 0.4 10 ^3/uL (0-1.3); Nucleated Red Blood Cells % 0.1 %; White Blood Cell 5.6 10^3/uL (4.4-10.8)
[2023-08-20 15:40] LABS: Basophils % (auto) 0.5 % (0.0-2.0); Hematocrit 32.3 % (36.0-46.0); Hemoglobin 10.4 g/dL (12.2-16.2); Lymphocytes % (auto) 32.4 % (10.0-50.0); Mean Corpuscular Hemoglobin 26.8 pg (28.0-32.0); Mean Corpuscular Hgb Conc. 32.1 g/dL (32.0-36.0); Mean Corpuscular Volume 83.4 fL (80.0-100.0); Monocytes % (auto) 6.8 % (0.0-12.0); Neutrophils # (auto) 3.2 10 ^3/uL (1.6-8.6); Neutrophils % (auto) 58.2 % (37.0-80.0); Red Blood Cells 3.87 10^6/uL (4.0-5.20); Red Cell Distribution Width 16.1 % (11.8-14.3)
[2023-08-20 16:13] LABS: Reticulocyte % (auto) 0.79 % (0.5-1.5)
== END | disposition home or self-care (01) ==
LOC: LAB 15:17
PROVIDERS: ATTEND Internal Medicine Cardiovascular Disease
DX: D64.9 Anemia, unspecified (principal)
CPT/HCPCS: 36415; 85025; 85045

== ENCOUNTER → 2023-11-29 | Outpatient (CLI) | payer MEDICARE, OTHER ==
[~2023-11-29] MED LIST changes: +ACET-1080 PO; +B-COCAP34 PO; +CALCTAB62 PO; -CHOL20007 OR; +CHOL20007 PO; +CRAN600T PO; +D-MA500C PO; +DAPA1TAB4 PO; +DOCU-265 PO; +EZET-10 PO; +FERR325T20 PO; +GAB100C PO; +GABA-1251 PO; +GABA-339 PO; +GLIP5TAB21 PO; +GLUC-149 XX; +LACTCAP35 PO; +LEVO50TA7 PO; +MET25T PO; +MULT-1018 PO; +PANT-62 PO; +POTA-36 PO; -POTA10TA51 PO; +SEVE800T7 PO; +SOLI5TAB42 PO; -SUCR1TAB22 PO; +SUCR1TAB31 PO; +TOLT1CAP29 PO; +TRIO1TP TOP; +VIBE75TA PO
[2023-11-29 08:53] LABS: Basophils # (auto) 0 10 ^3/uL (0-0.2); Basophils % (auto) 0.4 % (0.0-2.0); Eosinophils # (auto) 0.3 10 ^3/uL (0-0.8); Eosinophils % (auto) 4.1 % (0.0-7.0); Hematocrit 35.1 % (36.0-46.0); Hemoglobin 11.5 g/dL (12.2-16.2); Lymphocytes # (auto) 1.6 10 ^3/uL (0.4-5.4); Lymphocytes % (auto) 23.8 % (10.0-50.0); Mean Corpuscular Hemoglobin 28.3 pg (28.0-32.0); Mean Corpuscular Hgb Conc. 32.8 g/dL (32.0-36.0); Mean Corpuscular Volume 86.2 fL (80.0-100.0); Monocytes # (auto) 0.3 10 ^3/uL (0-1.3); Monocytes % (auto) 5.1 % (0.0-12.0); Neutrophils # (auto) 4.4 10 ^3/uL (1.6-8.6); Neutrophils % (auto) 66.6 % (37.0-80.0); Nucleated Red Blood Cells % 0.1 %; Red Blood Cells 4.07 10^6/uL (4.0-5.20); White Blood Cell 6.7 10^3/uL (4.4-10.8)
[2023-11-29 08:59] LABS: Urine Blood Negative /uL (Negative); Urine Clarity Clear (Clear); Urine Color Light-Yellow (Yellow); Urine Protein, UAD Negative (Negative); Urine Specific Gravity 1.018 (1.001-1.035); Urine Urobilinogen Normal (Negative); Urine pH 5.5 (5.0-9.0)
[2023-11-29 09:24] LABS: Anion Gap 5 (5-15); Carbon Dioxide 28 mmol/L (20-30); Chloride 107 mmol/L (98-107); Potassium 5.1 mmol/L (3.5-5.1); Sodium 140 mmol/L (136-145)
[2023-11-29 09:25] LABS: Calcium 10.1 mg/dL (8.5-10.1)
[2023-11-29 09:30] LABS: BUN/Creatinine Ratio 16.8 (10.0-20.0); Blood Urea Nitrogen 26 mg/dL (9-23); Glucose 112 mg/dL (74-106); LDL Cholesterol 130 mg/dL (< 100); Triglycerides 240 mg/dL (< 150)
[2023-11-29 09:32] LABS: Cholesterol 209 mg/dL (< 200); HDL Cholesterol 45 mg/dL (40-59)
[2023-11-29 11:07] LABS: % Iron Saturation 22.4 % (15-50)
== END | disposition home or self-care (01) ==
LOC: LAB 08:30
PROVIDERS: ATTEND Internal Medicine Cardiovascular Disease
DX: I12.9 Hypertensive chronic kidney disease with stage 1 through stage 4 chronic kidney disease, or unspecified chronic kidney disease (principal); E11.22 Type 2 diabetes mellitus with diabetic chronic kidney disease; N18.30 Chronic kidney disease, stage 3 unspecified; I50.43 Acute on chronic combined systolic (congestive) and diastolic (congestive) heart failure; D63.1 Anemia in chronic kidney disease; E11.40 Type 2 diabetes mellitus with diabetic neuropathy, unspecified; Z79.82 Long term (current) use of aspirin; Z79.899 Other long term (current) drug therapy
CPT/HCPCS: 36415; 80048; 80061; 81003; 82728; 83036; 83540; 83550; 83880; 84443; 85025; 85045

== ENCOUNTER 2023-12-04 16:48 | Inpatient (IN) | payer MEDICARE, OTHER ==
[~2023-12-04] VITALS: Ht 149.9 cm; Wt 79.7 kg
[~2023-12-04 16:48] MED LIST changes: -ACET-1080 PO; -B-COCAP34 PO; -CALCTAB62 PO; -CRAN600T PO; -D-MA500C PO; -DAPA1TAB4 PO; -DOCU-265 PO; -EZET-10 PO; -FERR325T20 PO; -GAB100C PO; -GABA-1251 PO; -GABA-339 PO; -GLIP5TAB21 PO; -GLUC-149 XX; -LACTCAP35 PO; -LEVO50TA7 PO; -MET25T PO; -MULT-1018 PO; -PANT-62 PO; -SEVE800T7 PO; -SOLI5TAB42 PO; -TOLT1CAP29 PO; -TRIO1TP TOP; -VIBE75TA PO
[2023-12-04 21:14] LABS: Basophils # (auto) 0 10 ^3/uL (0-0.2); Basophils % (auto) 0.4 % (0.0-2.0); Eosinophils # (auto) 0.2 10 ^3/uL (0-0.8); Eosinophils % (auto) 3.3 % (0.0-7.0); Hematocrit 30.6 % (36.0-46.0); Hemoglobin 10.3 g/dL (12.2-16.2); Lymphocytes # (auto) 1.9 10 ^3/uL (0.4-5.4); Lymphocytes % (auto) 25.2 % (10.0-50.0); Mean Corpuscular Hemoglobin 29.3 pg (28.0-32.0); Mean Corpuscular Hgb Conc. 33.7 g/dL (32.0-36.0); Mean Corpuscular Volume 86.8 fL (80.0-100.0); Monocytes # (auto) 0.5 10 ^3/uL (0-1.3); Monocytes % (auto) 7.2 % (0.0-12.0); Neutrophils # (auto) 4.8 10 ^3/uL (1.6-8.6); Neutrophils % (auto) 63.9 % (37.0-80.0); Nucleated Red Blood Cells % 0.1 %; Red Blood Cells 3.52 10^6/uL (4.0-5.20); Red Cell Distribution Width 15.1 % (11.8-14.3); White Blood Cell 7.4 10^3/uL (4.4-10.8)
[2023-12-04 21:34] LABS: Alanine Aminotransferase 10 U/L (7-40); Albumin 4.2 g/dL (3.2-4.8); Alkaline Phosphatase 87 U/L (46-116); Anion Gap 7 (5-15); Aspartate Aminotransferase 8 U/L (13-40); BUN/Creatinine Ratio 8.7 (10.0-20.0); Bilirubin, Total 0.2 mg/dL (0.2-1.0); Blood Urea Nitrogen 42 mg/dL (9-23); Calcium 9.1 mg/dL (8.5-10.1); Carbon Dioxide 23 mmol/L (20-30); Chloride 102 mmol/L (98-107); Glucose 126 mg/dL (74-106); Potassium 4.9 mmol/L (3.5-5.1); Total Protein 6.8 g/dL (5.7-8.2)
[2023-12-04 21:50] LABS: Sodium 132 mmol/L (136-145)
[2023-12-04 23:52] LABS: Urine Bacteria None Seen /hpf (None Seen)
[2023-12-05] MEDS ORDERED: DEXTROSE (50%) 50ML SYRG IV PRN
[2023-12-05] MEDS ORDERED: NITROGLYCERIN 0.4 MG SL TAB SL PRN
[2023-12-05] MEDS ORDERED: MORPHINE SULFATE INJ 2 MG/ml SYRG IV PRN
[2023-12-05] MEDS ORDERED: HYDROcodone-ACET 5/325MG TAB PO PRN
[2023-12-05] MEDS ORDERED: ONDANSETRON HCL 4 MG/2 ML VIAL IV PRN
[2023-12-05 00:05] LABS: Urine Blood 2+ /uL (Negative); Urine Clarity Ex.Turbid (Clear); Urine Color Dark-Brown (Yellow); Urine Protein, UAD 2+ (Negative); Urine Specific Gravity 1.014 (1.001-1.035); Urine Urobilinogen Normal (Negative); Urine WBC 5606 /hpf (0 - 5); Urine WBC Clumps PRESENT /hpf (None Seen)
[2023-12-05 03:45] VITALS: PULSE 94; RESP 13; O2SAT 96
[2023-12-05] MEDS: SODIUM CHLORIDE 0.9% 1,000 ML IV SCH ×2 (03:58→22:02)
[2023-12-05] MEDS: ACCU-CHEK COMFORT CURVE STRIP VI SCH (06:33)
[2023-12-05] MEDS: InsuLIN REG 1unit/0.01ml Soln (100units/ml) SC SCH (06:34)
[2023-12-05 07:07] LABS: Basophils # (auto) 0 10 ^3/uL (0-0.2); Basophils % (auto) 0.2 % (0.0-2.0); Eosinophils # (auto) 0.2 10 ^3/uL (0-0.8); Eosinophils % (auto) 2.3 % (0.0-7.0); Hematocrit 31.4 % (36.0-46.0); Hemoglobin 10.3 g/dL (12.2-16.2); Lymphocytes # (auto) 1.5 10 ^3/uL (0.4-5.4); Lymphocytes % (auto) 20.6 % (10.0-50.0); Mean Corpuscular Hemoglobin 28.8 pg (28.0-32.0); Mean Corpuscular Hgb Conc. 32.8 g/dL (32.0-36.0); Mean Corpuscular Volume 87.9 fL (80.0-100.0); Monocytes # (auto) 0.5 10 ^3/uL (0-1.3); Monocytes % (auto) 7.8 % (0.0-12.0); Neutrophils # (auto) 4.9 10 ^3/uL (1.6-8.6); Neutrophils % (auto) 69.1 % (37.0-80.0); Red Blood Cells 3.57 10^6/uL (4.0-5.20); Red Cell Distribution Width 14.8 % (11.8-14.3)
[2023-12-05 07:28] LABS: Alanine Aminotransferase 12 U/L (7-40); Albumin 4.1 g/dL (3.2-4.8); Alkaline Phosphatase 85 U/L (46-116); Anion Gap 7 (5-15); Aspartate Aminotransferase 10 U/L (13-40); BUN/Creatinine Ratio 7.6 (10.0-20.0); Bilirubin, Total 0.4 mg/dL (0.2-1.0); Blood Urea Nitrogen 41 mg/dL (9-23); Calcium 8.9 mg/dL (8.5-10.1); Carbon Dioxide 21 mmol/L (20-30); Chloride 102 mmol/L (98-107); Glucose 103 mg/dL (74-106); Sodium 130 mmol/L (136-145); Total Protein 6.9 g/dL (5.7-8.2)
[2023-12-05 07:43] LABS: Potassium 5.8 mmol/L (3.5-5.1)
[2023-12-05 08:30] VITALS: PULSE 84; RESP 19; O2SAT 95
[2023-12-05] MEDS ORDERED: SUCRALFATE 1 GM TAB PO PRN (08:30)
[2023-12-05] MEDS ORDERED: DICYCLOMINE HCL 10 MG CAP PO PRN (08:30)
[2023-12-05] MEDS: CALCIUM GLUC 1,000mg/50ml-NS 50 ML IV ONE (08:57)
[2023-12-05] MEDS: SODIUM BICARB 8.4% 50Meq/50ml SYR INJ IV ONE (08:57)
[2023-12-05] MEDS: DEXTROSE (50%) 50ML SYRG IV ONE (08:58)
[2023-12-05] MEDS: ASPirin-EC 81 mg tab PO SCH (08:58)
[2023-12-05] MEDS: ALBUTEROL SULF 2.5 MG/0.5ML(0.5%) NEB SOLN NEB ONE (08:58)
[2023-12-05] MEDS: SODIUM ZIRCONIUM CYCL 10 GM PAK PO ONE (09:03)
[2023-12-05] MEDS: FUROSEMIDE 40 MG/4 ML VIAL IV ONE (09:03)
[2023-12-05] MEDS: METOPROLOL SUCCINATE XL 50 MG TAB PO SCH (09:05)
[2023-12-05] MEDS: InsuLIN REG 1unit/0.01ml Soln (100units/ml) IV ONE (09:08)
[2023-12-05] MEDS: FUROSEMIDE 40 MG TAB PO SCH (09:08)
[2023-12-05] MEDS: PIPERACILLIN-TAZOB 3.375GM 100 ML IV ONE (09:56)
[2023-12-05] MEDS ORDERED: CALCIUM ACETATE 667 MG CAP PO SCH (10:00)
[2023-12-05] MEDS ORDERED: PANTOPRAZOLE 40 MG TAB PO SCH (10:00)
[2023-12-05] MEDS ORDERED: metFORMIN HYDROCHLORIDE 500 MG TAB PO SCH ×3 (10:00→18:00)
[2023-12-05] MEDS ORDERED: FAMOTIDINE (10MG/ML) 2ML VL IV SCH (10:00)
[2023-12-05] MEDS ORDERED: ASPirin 81 mg TAB PO SCH (10:00)
[2023-12-05] MEDS: PANTOPRAZOLE 40 MG/10 ML VIAL INJ IV SCH (10:41)
[2023-12-05] MEDS: FUROSEMIDE INJECTION 100 MG in SODIUM CHL 0.9% 100 ML IV SCH (15:30)
[2023-12-05] MEDS: cefTRIAXone 1GM/50ML D5W 50 ML IV ONE (21:42)
[2023-12-05] MEDS: SODIUM ZIRCONIUM CYCL 10 GM PAK PO SCH (21:43)
[2023-12-05] MEDS: GABAPENTIN 300 MG CAP PO SCH (21:44)
[2023-12-05] MEDS: glipiZIDE 5 MG TAB PO SCH (21:59)
[2023-12-05] MEDS ORDERED: LISINOPRIL 5 MG TAB PO SCH (22:00)
[2023-12-06] VITALS (9 sets, daily range): BP systolic 92–117; BP diastolic 39–55; PULSE 74–86; RESP 16–20; TEMP 97.5–98.3; O2SAT 94–97
[2023-12-06] MEDS: GABAPENTIN 100 MG CAP PO SCH (06:14)
[2023-12-06] MEDS: FUROSEMIDE INJECTION 10 ML ONE (07:20)
[2023-12-06 07:28] LABS: Anion Gap 9 (5-15); Carbon Dioxide 22 mmol/L (20-30); Chloride 98 mmol/L (98-107); Sodium 129 mmol/L (136-145)
[2023-12-06 07:29] LABS: Calcium 8.4 mg/dL (8.5-10.1)
[2023-12-06 07:34] LABS: BUN/Creatinine Ratio 7.2 (10.0-20.0); Glucose 129 mg/dL (74-106)
[2023-12-06 07:35] LABS: Magnesium 2.1 mg/dL (1.6-2.6)
[2023-12-06 07:36] LABS: Phosphorus 9.7 mg/dL (2.4-5.1)
[2023-12-06 07:42] LABS: Blood Urea Nitrogen 54 mg/dL (9-23)
[2023-12-06] MEDS: cefTRIAXone 1GM/50ML D5W 50 ML IV SCH (09:28)
[2023-12-06 11:41] LABS: Anion Gap 10 (5-15); Carbon Dioxide 20 mmol/L (20-30); Chloride 97 mmol/L (98-107); Potassium 5.3 mmol/L (3.5-5.1); Sodium 127 mmol/L (136-145)
[2023-12-06 11:47] LABS: BUN/Creatinine Ratio 6.9 (10.0-20.0); Blood Urea Nitrogen 52 mg/dL (9-23); Glucose 180 mg/dL (74-106)
[2023-12-06] MEDS: SEVELAMER 800 MG TAB PO SCH (12:03)
[2023-12-06 12:24] LABS: Urine Bacteria None Seen /hpf (None Seen)
[2023-12-06 13:00] LABS: Protein, Urine 85.9 mg/dL (0.0-11.9)
[2023-12-06 13:03] LABS: Creatinine, Urine 32.61 mg/dL (30.0-125.0)
[2023-12-06 13:08] LABS: Urine Blood 1+ /uL (Negative); Urine Clarity Turbid (Clear); Urine Color Colorless (Yellow); Urine Hyaline Cast FEW /lpf (0 - 2); Urine Protein, UAD 1+ (Negative); Urine Specific Gravity 1.007 (1.001-1.035); Urine Urobilinogen Normal (Negative); Urine WBC 456 /hpf (0 - 5); Urine WBC Clumps PRESENT /hpf (None Seen); Urine pH 5.5 (5.0-9.0)
[2023-12-06] MEDS ORDERED: DAPA1TAB4 PO ×2 (14:31)
[2023-12-06] MEDS ORDERED: TRIO1TP TOP ×2 (14:31)
[2023-12-06] MEDS ORDERED: FERR325T20 PO (14:31)
[2023-12-06] MEDS ORDERED: TOLT1CAP29 PO ×2 (14:31)
[2023-12-06] MEDS ORDERED: GLUC-149 XX ×2 (14:31)
[2023-12-06] MEDS ORDERED: LEVO50TA7 PO ×2 (14:31)
[2023-12-06] MEDS ORDERED: VIBE75TA PO ×2 (14:31)
[2023-12-06] MEDS ORDERED: GAB100C PO ×2 (14:31)
[2023-12-06] MEDS ORDERED: PANT-62 PO ×2 (14:31)
[2023-12-06] MEDS ORDERED: GABA-339 PO ×2 (14:31)
[2023-12-06] MEDS ORDERED: SOLI5TAB42 PO ×2 (14:31)
[2023-12-06] MEDS ORDERED: MET25T PO ×2 (14:31)
[2023-12-06] MEDS ORDERED: DOCU-265 PO ×2 (14:31)
[2023-12-06] MEDS ORDERED: GLIP5TAB21 PO ×2 (14:31)
[2023-12-06] MEDS ORDERED: EZET-10 PO ×2 (14:31)
[2023-12-06] MEDS ORDERED: GABA-1251 PO (14:35)
[2023-12-06] MEDS ORDERED: MULT-1018 PO ×2 (14:37)
[2023-12-06] MEDS ORDERED: CALCTAB62 PO ×2 (14:48)
[2023-12-06] MEDS ORDERED: B-COCAP34 PO ×2 (14:48)
[2023-12-06] MEDS ORDERED: D-MA500C PO ×2 (14:48)
[2023-12-06] MEDS ORDERED: LACTCAP35 PO ×2 (14:48)
[2023-12-06] MEDS ORDERED: CRAN600T PO ×2 (14:51)
[2023-12-06] MEDS ORDERED: ACET-1080 PO ×2 (14:51)
[2023-12-07] VITALS (7 sets, daily range): BP systolic 93–128; BP diastolic 47–67; PULSE 76–87; RESP 17–19; TEMP 97.4–97.8; O2SAT 94–97
[2023-12-07] MEDS: ALBUMIN 25% 50 ML IV SCH (00:15)
[2023-12-07] MEDS: ACETAMINOPHEN 325 MG TAB PO PRN (00:36)
[2023-12-07] MEDS: DOCUSATE SOD 100 MG CAP PO PRN (06:19)
[2023-12-07 07:10] LABS: Calcium 8.6 mg/dL (8.7-10.4); Chloride 97 mmol/L (98-107)
[2023-12-07 07:11] LABS: Anion Gap 13 (5-15); Carbon Dioxide 23 mmol/L (20-30)
[2023-12-07 07:16] LABS: BUN/Creatinine Ratio 7.6 (10.0-20.0); Blood Urea Nitrogen 54 mg/dL (9-23); Glucose 121 mg/dL (74-106); Sodium 133 mmol/L (136-145)
[2023-12-07] MEDS ORDERED: SEVE800T7 PO ×2 (09:03)
[2023-12-07] MEDS ORDERED: FURO1TAB31 PO ×2 (09:03)
== END 2023-12-07 18:30 | disposition home or self-care (01) | DRG 683 ==
LOC: ER 16:48 → TELE 23:57 → TELE-WESTW 12-06 01:05
PROVIDERS: ADMIT Nurse Practitioner Family; ATTEND Internal Medicine
DX: N17.0 Acute kidney failure with tubular necrosis (principal); E87.1 Hypo-osmolality and hyponatremia; N18.4 Chronic kidney disease, stage 4 (severe); I12.9 Hypertensive chronic kidney disease with stage 1 through stage 4 chronic kidney disease, or unspecified chronic kidney disease; E11.22 Type 2 diabetes mellitus with diabetic chronic kidney disease; E87.5 Hyperkalemia; E66.9 Obesity, unspecified; K21.9 Gastro-esophageal reflux disease without esophagitis; E78.5 Hyperlipidemia, unspecified; E11.65 Type 2 diabetes mellitus with hyperglycemia; E87.70 Fluid overload, unspecified; D63.1 Anemia in chronic kidney disease; E83.39 Other disorders of phosphorus metabolism; Z87.442 Personal history of urinary calculi; Z90.49 Acquired absence of other specified parts of digestive tract; Z68.35 Body mass index [BMI] 35.0-35.9, adult; R79.89 Other specified abnormal findings of blood chemistry
CPT/HCPCS: 36415; 71045; 76775; 80048; 80053; 81001; 82306; 82570; 82962; 83735; 83970; 84100; 84132; 84156; 84300; 85025; 87086; 94640; C9113; G0378; J1815; J2543

== ENCOUNTER → 2023-12-13 | Outpatient (CLI) | payer MEDICARE, OTHER ==
[~2023-12-13] MED LIST changes: +ACET-1080 PO; -ASPI-543 PO; +B-COCAP34 PO; -CALC667C5 PO; +CALCTAB62 PO; +CRAN600T PO; +D-MA500C PO; +DAPA1TAB4 PO; +DOCU-265 PO; +EZET-10 PO; +GAB100C PO; -GABA-1250 PO; -GABA-1308 PO; +GABA-339 PO; -GLIP10TA9 PO; +GLIP5TAB21 PO; +GLUC-149 XX; +LACTCAP35 PO; +LEVO50TA7 PO; -MAGN400T40 PO; +MET25T PO; -METO25TA93 PO; +MULT-1018 PO; -NAPR-505 PO; -OMEG-28 PO; -ONDA-144 PO; +PANT-62 PO; -PANT40TA2 PO; +SEVE800T7 PO; +SOLI5TAB42 PO; -SUCR1TAB31 PO; +TOLT1CAP29 PO; -TOLT2CAP PO; +TRIO1TP TOP; +VIBE75TA PO
== END | disposition home or self-care (01) ==
LOC: Rad HDHVI 15:03
PROVIDERS: ATTEND Internal Medicine Cardiovascular Disease
DX: I08.2 Rheumatic disorders of both aortic and tricuspid valves (principal); R06.02 Shortness of breath; I10 Essential (primary) hypertension
CPT/HCPCS: 93306

== ENCOUNTER → 2023-12-15 | Outpatient (CLI) | payer MEDICARE, OTHER ==
[~2023-12-15] MED LIST changes: +ASPI-543 PO; +CALC667C5 PO; +FERR325T20 PO; +GABA-1250 PO; +GABA-1251 PO; +GABA-1308 PO; +GLIP10TA9 PO; +MAGN400T40 PO; +METO25TA93 PO; +NAPR-505 PO; +OMEG-28 PO; +ONDA-144 PO; +PANT40TA2 PO; +SUCR1TAB31 PO; +TOLT2CAP PO
[2023-12-15 11:10] VITALS: BP 93/53; PULSE 87; RESP 18; O2SAT 95
[2023-12-15] MEDS: SODIUM CHLORIDE 0.9% 500 ML IV ONE (11:10)
[2023-12-15 13:38] VITALS: BP 90/41; PULSE 80; RESP 18; O2SAT 95
== END | disposition home or self-care (01) ==
LOC: CHF HDHVI 11:11
PROVIDERS: ATTEND Internal Medicine Cardiovascular Disease
DX: E86.0 Dehydration (principal); I12.9 Hypertensive chronic kidney disease with stage 1 through stage 4 chronic kidney disease, or unspecified chronic kidney disease; E11.22 Type 2 diabetes mellitus with diabetic chronic kidney disease; N18.32 Chronic kidney disease, stage 3b; K21.9 Gastro-esophageal reflux disease without esophagitis; E78.5 Hyperlipidemia, unspecified; E11.40 Type 2 diabetes mellitus with diabetic neuropathy, unspecified; Z90.49 Acquired absence of other specified parts of digestive tract; Z79.899 Other long term (current) drug therapy; Z79.82 Long term (current) use of aspirin
CPT/HCPCS: 96360; 96361; G0463; J7040

== ENCOUNTER → 2023-12-22 | Outpatient (CLI) | payer MEDICARE, OTHER ==
[~2023-12-22] MED LIST changes: -ASPI-543 PO; -CALC667C5 PO; -FERR325T20 PO; -GABA-1250 PO; -GABA-1251 PO; -GABA-1308 PO; -GLIP10TA9 PO; -MAGN400T40 PO; -METO25TA93 PO; -NAPR-505 PO; -OMEG-28 PO; -ONDA-144 PO; -PANT40TA2 PO; -SUCR1TAB31 PO; -TOLT2CAP PO
[2023-12-22 13:00] VITALS: BP 100/64; PULSE 93; RESP 18; O2SAT 99
[2023-12-22] MEDS: SODIUM CHLORIDE 0.9% 1,000 ML IV ONE (13:00)
[2023-12-22] MEDS: SODIUM ZIRCONIUM CYCL 10 GM PAK ONE (15:11)
[2023-12-22] MEDS: SODIUM ZIRCONIUM CYCL 10 GM PAK PO ONE (15:11)
[2023-12-22 15:28] VITALS: BP 100/58; PULSE 83; RESP 18; O2SAT 99
== END | disposition home or self-care (01) ==
LOC: CHF HDHVI 13:02
PROVIDERS: ATTEND Internal Medicine Cardiovascular Disease
DX: E86.0 Dehydration (principal); E87.5 Hyperkalemia; I12.9 Hypertensive chronic kidney disease with stage 1 through stage 4 chronic kidney disease, or unspecified chronic kidney disease; E11.22 Type 2 diabetes mellitus with diabetic chronic kidney disease; N18.4 Chronic kidney disease, stage 4 (severe); K21.9 Gastro-esophageal reflux disease without esophagitis; E78.5 Hyperlipidemia, unspecified; Z90.49 Acquired absence of other specified parts of digestive tract; Z79.01 Long term (current) use of anticoagulants; Z79.899 Other long term (current) drug therapy
CPT/HCPCS: 96360; 96361; G0463; J7030

== ENCOUNTER → 2024-01-04 | Outpatient (CLI) | payer MEDICARE, OTHER ==
[2024-01-04 10:32] VITALS: BP 103/62; PULSE 97; RESP 20; O2SAT 94
[2024-01-04] MEDS: SODIUM CHLORIDE 0.9% 500 ML IV ONE (10:52)
[2024-01-04] MEDS: SODIUM FERR GLUC 125 MG/in NS 100 ML IVPB KIT IV ONE (10:53)
[2024-01-04] MEDS: SODIUM FERRIC GLUC CPLEX 62.5MG/5ML VIAL IV ONE (11:52)
[2024-01-04 13:00] VITALS: BP 104/62; PULSE 90; RESP 16; O2SAT 94
== END | disposition home or self-care (01) ==
LOC: CHF HDHVI 10:21
PROVIDERS: ATTEND Internal Medicine Cardiovascular Disease
DX: E86.0 Dehydration (principal); D51.9 Vitamin B12 deficiency anemia, unspecified; I12.9 Hypertensive chronic kidney disease with stage 1 through stage 4 chronic kidney disease, or unspecified chronic kidney disease; E11.22 Type 2 diabetes mellitus with diabetic chronic kidney disease; N18.32 Chronic kidney disease, stage 3b; E11.40 Type 2 diabetes mellitus with diabetic neuropathy, unspecified; K21.9 Gastro-esophageal reflux disease without esophagitis; Z79.01 Long term (current) use of anticoagulants; Z79.899 Other long term (current) drug therapy
CPT/HCPCS: 96361; 96365; G0463; J2916; J7040; 96360; 96367

== ENCOUNTER → 2024-01-12 | Outpatient (CLI) | payer MEDICARE, OTHER ==
[~2024-01-12] MED LIST changes: +PATIENTS OWN MEDICATION (FERRLECIT 125 MG) IV ONE
[2024-01-12 09:08] VITALS: BP 125/62; PULSE 80; RESP 18; O2SAT 95
[2024-01-12] MEDS: SODIUM FERRIC GLUC CPLEX 62.5MG/5ML VIAL IV ONE (09:24)
[2024-01-12 10:32] VITALS: BP 109/63; PULSE 80; RESP 18; O2SAT 95
[2024-01-12] MEDS: SODIUM FERR GLUC 62.5MG/5ML 110 ML IV ONE (10:54)
== END | disposition home or self-care (01) ==
LOC: CHF HDHVI 09:10
PROVIDERS: ATTEND Internal Medicine Cardiovascular Disease
DX: I13.0 Hypertensive heart and chronic kidney disease with heart failure and stage 1 through stage 4 chronic kidney disease, or unspecified chronic kidney disease (principal); E11.22 Type 2 diabetes mellitus with diabetic chronic kidney disease; N18.4 Chronic kidney disease, stage 4 (severe); D63.1 Anemia in chronic kidney disease; I50.43 Acute on chronic combined systolic (congestive) and diastolic (congestive) heart failure; K21.9 Gastro-esophageal reflux disease without esophagitis; E11.40 Type 2 diabetes mellitus with diabetic neuropathy, unspecified; D51.9 Vitamin B12 deficiency anemia, unspecified; Z90.49 Acquired absence of other specified parts of digestive tract; E78.5 Hyperlipidemia, unspecified; Z79.82 Long term (current) use of aspirin; Z79.899 Other long term (current) drug therapy; Z79.01 Long term (current) use of anticoagulants
CPT/HCPCS: 96365; G0463; J2916

== ENCOUNTER → 2024-01-19 | Outpatient (CLI) | payer MEDICARE, OTHER ==
[2024-01-19 08:40] VITALS: BP 107/67; PULSE 87; RESP 16; O2SAT 95
[2024-01-19] MEDS: SODIUM FERRIC GLUC CPLEX 62.5MG/5ML VIAL IV ONE (08:42)
[2024-01-19 10:00] VITALS: BP 105/62; PULSE 88; RESP 16; O2SAT 95
[2024-01-19] MEDS: SODIUM FERR GLUC 62.5MG/5ML 110 ML IV ONE (10:30)
== END | disposition home or self-care (01) ==
LOC: CHF HDHVI 08:35
PROVIDERS: ATTEND Internal Medicine Cardiovascular Disease
DX: D51.9 Vitamin B12 deficiency anemia, unspecified (principal); R53.83 Other fatigue; I13.0 Hypertensive heart and chronic kidney disease with heart failure and stage 1 through stage 4 chronic kidney disease, or unspecified chronic kidney disease; E11.22 Type 2 diabetes mellitus with diabetic chronic kidney disease; I50.43 Acute on chronic combined systolic (congestive) and diastolic (congestive) heart failure; N18.4 Chronic kidney disease, stage 4 (severe); D63.1 Anemia in chronic kidney disease; E11.40 Type 2 diabetes mellitus with diabetic neuropathy, unspecified; K21.9 Gastro-esophageal reflux disease without esophagitis; E78.5 Hyperlipidemia, unspecified; Z79.01 Long term (current) use of anticoagulants; Z79.82 Long term (current) use of aspirin
CPT/HCPCS: 96365; G0463; J2916

== ENCOUNTER → 2024-02-07 | Outpatient (CLI) | payer MEDICARE, OTHER ==
[~2024-02-07] MED LIST changes: -PATIENTS OWN MEDICATION (FERRLECIT 125 MG) IV ONE
[2024-02-07 09:03] LABS: Basophils # (auto) 0 10 ^3/uL (0-0.2); Basophils % (auto) 0.7 % (0.0-2.0); Eosinophils # (auto) 0.2 10 ^3/uL (0-0.8); Eosinophils % (auto) 3.3 % (0.0-7.0); Hematocrit 34.5 % (36.0-46.0); Hemoglobin 11.3 g/dL (12.2-16.2); Lymphocytes # (auto) 1.5 10 ^3/uL (0.4-5.4); Lymphocytes % (auto) 28.9 % (10.0-50.0); Mean Corpuscular Hemoglobin 29.5 pg (28.0-32.0); Mean Corpuscular Hgb Conc. 32.8 g/dL (32.0-36.0); Mean Corpuscular Volume 89.7 fL (80.0-100.0); Monocytes # (auto) 0.4 10 ^3/uL (0-1.3); Monocytes % (auto) 7.2 % (0.0-12.0); Neutrophils # (auto) 3.2 10 ^3/uL (1.6-8.6); Neutrophils % (auto) 59.9 % (37.0-80.0); Nucleated Red Blood Cells % 0.1 %; Red Blood Cells 3.85 10^6/uL (4.0-5.20); Red Cell Distribution Width 16.1 % (11.8-14.3); White Blood Cell 5.3 10^3/uL (4.4-10.8)
[2024-02-07 13:07] LABS: Folate (Folic Acid) 45.92 ng/mL (>5.38)
== END | disposition home or self-care (01) ==
LOC: LAB 08:48
PROVIDERS: ATTEND Internal Medicine Cardiovascular Disease
DX: E61.1 Iron deficiency (principal); D52.9 Folate deficiency anemia, unspecified; R53.1 Weakness
CPT/HCPCS: 36415; 82607; 82746; 85025; 85045

== ENCOUNTER → 2024-05-31 | Outpatient (CLI) | payer MEDICARE, OTHER ==
[~2024-05-31] VITALS: Ht 152.4 cm; Wt 78.0 kg
[~2024-05-31] MED LIST changes: +ADENOSINE 66 MG in GIVE UN-DILUTED 0 ML IV ONE; +ADENOSINE 90 MG/30 ML INJ IV ONE
== END | disposition home or self-care (01) ==
LOC: Rad HDHVI 08:54
PROVIDERS: ATTEND Internal Medicine Cardiovascular Disease
DX: I13.0 Hypertensive heart and chronic kidney disease with heart failure and stage 1 through stage 4 chronic kidney disease, or unspecified chronic kidney disease (principal); E11.22 Type 2 diabetes mellitus with diabetic chronic kidney disease; N18.4 Chronic kidney disease, stage 4 (severe); I50.33 Acute on chronic diastolic (congestive) heart failure; E11.21 Type 2 diabetes mellitus with diabetic nephropathy; G45.9 Transient cerebral ischemic attack, unspecified; E78.00 Pure hypercholesterolemia, unspecified; E11.51 Type 2 diabetes mellitus with diabetic peripheral angiopathy without gangrene; Z82.49 Family history of ischemic heart disease and other diseases of the circulatory system; K21.9 Gastro-esophageal reflux disease without esophagitis; Z79.01 Long term (current) use of anticoagulants; Z79.82 Long term (current) use of aspirin; Z90.49 Acquired absence of other specified parts of digestive tract; Z79.899 Other long term (current) drug therapy
CPT/HCPCS: 78452; 93005; 96374; 96375; A9500; J0153

== ENCOUNTER → 2024-06-05 | Outpatient (CLI) | payer MEDICARE, OTHER ==
[~2024-06-05] MED LIST changes: -ADENOSINE 66 MG in GIVE UN-DILUTED 0 ML IV ONE; -ADENOSINE 90 MG/30 ML INJ IV ONE
== END | disposition home or self-care (01) ==
LOC: Rad HDHVI 13:29
PROVIDERS: ATTEND Internal Medicine Cardiovascular Disease
DX: I73.9 Peripheral vascular disease, unspecified (principal); I10 Essential (primary) hypertension
CPT/HCPCS: 93880; 93925

== ENCOUNTER → 2024-06-07 | Outpatient (CLI) | payer MEDICARE, OTHER ==
[2024-06-07 09:03] LABS: Urine Bacteria None Seen /hpf (None Seen)
[2024-06-07 09:41] LABS: Basophils # (auto) 0 10 ^3/uL (0-0.2); Basophils % (auto) 0.4 % (0.0-2.0); Eosinophils # (auto) 0.2 10 ^3/uL (0-0.8); Hemoglobin 12.6 g/dL (12.2-16.2); Lymphocytes # (auto) 1.5 10 ^3/uL (0.4-5.4); Lymphocytes % (auto) 23.5 % (10.0-50.0); Monocytes # (auto) 0.4 10 ^3/uL (0-1.3); Monocytes % (auto) 5.7 % (0.0-12.0); Neutrophils # (auto) 4.2 10 ^3/uL (1.6-8.6); Neutrophils % (auto) 67.4 % (37.0-80.0); Nucleated Red Blood Cells % 0.1 %; Red Blood Cells 4.16 10^6/uL (4.0-5.20); White Blood Cell 6.2 10^3/uL (4.4-10.8)
[2024-06-07 09:42] LABS: Hematocrit 37.3 % (36.0-46.0); Mean Corpuscular Hemoglobin 30.3 pg (28.0-32.0); Mean Corpuscular Hgb Conc. 33.8 g/dL (32.0-36.0); Mean Corpuscular Volume 89.8 fL (80.0-100.0); Platelet Count (auto) 231 10^3/uL (140-450); Red Cell Distribution Width 14.5 % (11.8-14.3)
[2024-06-07 10:06] LABS: Alanine Aminotransferase 14 U/L (7-40); Albumin 4.5 g/dL (3.2-4.8); Alkaline Phosphatase 98 U/L (46-116); Anion Gap 8 (5-15); BUN/Creatinine Ratio 13.4 (10.0-20.0); Bilirubin, Total 0.4 mg/dL (0.2-1.0); Blood Urea Nitrogen 18 mg/dL (9-23); Carbon Dioxide 27 mmol/L (20-31); Chloride 106 mmol/L (98-107); Phosphorus 3.3 mg/dL (2.4-5.1); Potassium 4.5 mmol/L (3.5-5.1); Sodium 141 mmol/L (136-145); Total Protein 7.3 g/dL (5.7-8.2)
[2024-06-07 10:11] LABS: Aspartate Aminotransferase 12 U/L (13-40); Glucose 122 mg/dL (74-106); Magnesium 1.5 mg/dL (1.6-2.6)
[2024-06-07 10:13] LABS: Urine Blood Negative /uL (Negative); Urine Clarity Clear (Clear); Urine Color Light-Yellow (Yellow); Urine Protein, UAD Negative (Negative); Urine Specific Gravity 1.019 (1.001-1.035); Urine Urobilinogen Normal (Negative); Urine WBC 5 /hpf (0 - 5); Urine pH 5.5 (5.0-9.0)
[2024-06-07 10:31] LABS: Creatinine, Urine 90.97 mg/dL (30.0-125.0)
[2024-06-07 10:33] LABS: Micro Albumin < 3.0 mg/L (<30.0)
[2024-06-07 10:38] LABS: Microalb/Creat Ratio, Urine < 3.00
== END | disposition home or self-care (01) ==
LOC: LAB 08:44
PROVIDERS: ATTEND Internal Medicine Nephrology
DX: E11.21 Type 2 diabetes mellitus with diabetic nephropathy (principal); E11.22 Type 2 diabetes mellitus with diabetic chronic kidney disease; N18.30 Chronic kidney disease, stage 3 unspecified; N39.0 Urinary tract infection, site not specified; R80.9 Proteinuria, unspecified; E21.3 Hyperparathyroidism, unspecified; M10.9 Gout, unspecified; E55.9 Vitamin D deficiency, unspecified; D63.1 Anemia in chronic kidney disease
CPT/HCPCS: 36415; 80053; 81001; 82043; 82306; 82570; 83036; 83735; 83970; 84100; 85025

== ENCOUNTER → 2024-09-07 | Outpatient (CLI) | payer MEDICARE, OTHER ==
[2024-09-07 08:11] LABS: Basophils # (auto) 0 10 ^3/uL (0-0.2); Basophils % (auto) 0.5 % (0.0-2.0); Eosinophils # (auto) 0.2 10 ^3/uL (0-0.8); Eosinophils % (auto) 3.9 % (0.0-7.0); Hematocrit 36.3 % (36.0-46.0); Lymphocytes # (auto) 1.4 10 ^3/uL (0.4-5.4); Lymphocytes % (auto) 30.1 % (10.0-50.0); Mean Corpuscular Hemoglobin 29.9 pg (28.0-32.0); Mean Corpuscular Volume 90.7 fL (80.0-100.0); Monocytes # (auto) 0.3 10 ^3/uL (0-1.3); Monocytes % (auto) 7.3 % (0.0-12.0); Neutrophils # (auto) 2.8 10 ^3/uL (1.6-8.6); Neutrophils % (auto) 58.2 % (37.0-80.0); Platelet Count (auto) 196 10^3/uL (140-450); Red Cell Distribution Width 15.3 % (11.8-14.3); White Blood Cell 4.8 10^3/uL (4.4-10.8)
[2024-09-07 08:36] LABS: Alanine Aminotransferase 14 U/L (7-40); Alkaline Phosphatase 63 U/L (46-116); Anion Gap 9 (5-15); BUN/Creatinine Ratio 12.4 (10.0-20.0); Blood Urea Nitrogen 17 mg/dL (9-23); Calcium 9.5 mg/dL (8.7-10.4); Carbon Dioxide 26 mmol/L (20-31); Chloride 106 mmol/L (98-107); Magnesium 1.6 mg/dL (1.6-2.6); Sodium 141 mmol/L (136-145); Total Protein 6.7 g/dL (5.7-8.2)
[2024-09-07 08:37] LABS: Albumin 4.3 g/dL (3.2-4.8); Aspartate Aminotransferase 15 U/L (13-40)
[2024-09-07 08:38] LABS: Bilirubin, Total 0.3 mg/dL (0.2-1.0)
[2024-09-07 08:43] LABS: Glucose 111 mg/dL (74-106)
== END | disposition home or self-care (01) ==
LOC: LAB 07:46
PROVIDERS: ATTEND Internal Medicine Nephrology
DX: E11.21 Type 2 diabetes mellitus with diabetic nephropathy (principal); E11.22 Type 2 diabetes mellitus with diabetic chronic kidney disease; N18.30 Chronic kidney disease, stage 3 unspecified; N39.0 Urinary tract infection, site not specified; R80.9 Proteinuria, unspecified; E21.3 Hyperparathyroidism, unspecified; M10.9 Gout, unspecified; E55.9 Vitamin D deficiency, unspecified; D63.1 Anemia in chronic kidney disease
CPT/HCPCS: 36415; 80053; 83735; 84100; 85025

== ENCOUNTER → 2024-10-02 | Outpatient (CLI) | payer MEDICARE, OTHER ==
--- NOTE | 2024-10-02 20:19 | DVH ---
XY CHEST TWO VIEWS ROUTINE CLINICAL HISTORY: PRE OP COMPARISON: CXR2 on DOS: 06/01/22, CHEST TWO VIEWS ROUTINE on DOS: 06/01/22, CXR2 on DOS: 12/24/21 TECHNIQUE: Frontal and lateral view of the chest was obtained FINDINGS: There is an elevated right hemidiaphragm with loss of volume in the right lung base. There is also in creased interstitial markings suggesting possible chronic lung disease follow-up CT examination of th e chest is suggested if more imaging is required. There are no infiltrates or effusions IMPRESSION: 1. Increased interstitial markings suggesting chronic pulmonary changes
== END | disposition home or self-care (01) ==
LOC: Rad HDHVI 16:02
PROVIDERS: ATTEND Internal Medicine Cardiovascular Disease
DX: Z01.818 Encounter for other preprocedural examination (principal); I50.33 Acute on chronic diastolic (congestive) heart failure
CPT/HCPCS: 71046

== ENCOUNTER → 2024-10-03 | Outpatient (CLI) | payer MEDICARE, OTHER ==
--- NOTE | 2024-10-04 14:57 | DVHSR ---
APPROVED REPORT EXAM: Two-dimensional and M-mode echocardiogram with Doppler and color Doppler. DIMENSIONS LVDd5.5 (3.8-5.7cm)LA (2D)4.3 (1.9-4.0cm)Aortic Root2.6 (2.0-3.7cm) LVDs4.3 (2.5-4.0cm)LA (MM) (1.9-4.0cm)Aortic Cusp Exc1.3 (1.5-2.0cm) EF (%) 43.8 (55-70%)Rt. Atrium3.5 (1.9-4.0cm)Asc. Aorta cm IVSd0.8 (0.7-1.1cm)RV (D)2.7 (1.8-2.4cm) PWd1.1 (0.7-1.1cm) Mitral Valve MitralMitral Stenosis E wave0.63m/sMV Mean GR.mmHg A wave1.02m/sMV Peak GR.66mmHg E/A ratio0.62D MVAcm2 DECEL [id number] 1/2 Timems Aortic Valve Aortic ValveAortic Stenosis V1m/Lg Mean GR.5mmHg V21.60m/Lg Peak GR.10mmHg AI P 1/2 [id number] Pulmonic Valve V20.70m/s Tricuspid Valve [id number] LEFT VENTRICLE The Ejection Fraction is 35-45%. ATRIA The left atrium is mildly dilated. The right atrium size is normal. MITRAL VALVE The mitral valve is normal in structure and function. Mitral regurgitation is mild. PULMONIC VALVE The pulmonic valve is not well visualized. TRICUSPID VALVE The tricuspid valve is grossly normal. AORTIC VALVE The aortic valve is mildlysclerotic. There is trace to mild aortic regurgitation. GREAT VESSELS The aortic root is normal size. PERICARDIAL EFFUSION There is no pericardial effusion. Conclusion EF 45-50%
== END | disposition home or self-care (01) ==
LOC: Rad HDHVI 15:00
PROVIDERS: ATTEND Internal Medicine Cardiovascular Disease
DX: Z01.810 Encounter for preprocedural cardiovascular examination (principal); I08.0 Rheumatic disorders of both mitral and aortic valves
CPT/HCPCS: 93306

== ENCOUNTER → 2024-10-11 | Outpatient (CLI) | payer MEDICARE, OTHER ==
[2024-10-11 12:18] LABS: Basophils # (auto) 0 10 ^3/uL (0-0.2); Basophils % (auto) 0.6 % (0.0-2.0); Eosinophils # (auto) 0.2 10 ^3/uL (0-0.8); Eosinophils % (auto) 3.8 % (0.0-7.0); Hematocrit 36.4 % (36.0-46.0); Hemoglobin 11.8 g/dL (12.2-16.2); Lymphocytes # (auto) 1.5 10 ^3/uL (0.4-5.4); Lymphocytes % (auto) 26.3 % (10.0-50.0); Mean Corpuscular Hemoglobin 29.5 pg (28.0-32.0); Mean Corpuscular Hgb Conc. 32.5 g/dL (32.0-36.0); Mean Corpuscular Volume 90.9 fL (80.0-100.0); Monocytes # (auto) 0.3 10 ^3/uL (0-1.3); Monocytes % (auto) 5.1 % (0.0-12.0); Neutrophils # (auto) 3.7 10 ^3/uL (1.6-8.6); Neutrophils % (auto) 64.2 % (37.0-80.0); Nucleated Red Blood Cells % 0.1 %; Platelet Count (auto) 190 10^3/uL (140-450); Red Cell Distribution Width 14.9 % (11.8-14.3); White Blood Cell 5.8 10^3/uL (4.4-10.8)
[2024-10-11 12:29] LABS: Alanine Aminotransferase 14 U/L (7-40); Albumin 4.3 g/dL (3.2-4.8); Alkaline Phosphatase 68 U/L (46-116); Anion Gap 9 (5-15); Aspartate Aminotransferase 16 U/L (13-40); BUN/Creatinine Ratio 14.4 (10.0-20.0); Bilirubin, Total 0.3 mg/dL (0.2-1.0); Calcium 9.9 mg/dL (8.7-10.4); Carbon Dioxide 27 mmol/L (20-31); Chloride 104 mmol/L (98-107); Glucose 80 mg/dL (74-106); Potassium 4.7 mmol/L (3.5-5.1); Sodium 140 mmol/L (136-145); Total Protein 6.9 g/dL (5.7-8.2)
[2024-10-11 12:31] LABS: Blood Urea Nitrogen 27 mg/dL (9-23)
[2024-10-11 12:33] LABS: INR 1.01 (0.9-1.15); Prothrombin Time 10.7 sec (9.3-11.8)
== END | disposition home or self-care (01) ==
LOC: LAB 11:29
PROVIDERS: ATTEND Ophthalmology
DX: H25.11 Age-related nuclear cataract, right eye (principal); H53.9 Unspecified visual disturbance
CPT/HCPCS: 36415; 80053; 85025; 85610; 85730

== ENCOUNTER → 2024-11-08 | Outpatient (CLI) | payer MEDICARE, OTHER ==
[2024-11-08 07:39] LABS: Urine Bacteria None Seen /hpf (None Seen)
[2024-11-08 07:42] LABS: Basophils # (auto) 0 10 ^3/uL (0-0.2); Basophils % (auto) 0.6 % (0.0-2.0); Eosinophils # (auto) 0.2 10 ^3/uL (0-0.8); Eosinophils % (auto) 4.6 % (0.0-7.0); Hematocrit 37.2 % (36.0-46.0); Hemoglobin 12.6 g/dL (12.2-16.2); Lymphocytes # (auto) 1.6 10 ^3/uL (0.4-5.4); Lymphocytes % (auto) 29.3 % (10.0-50.0); Mean Corpuscular Hemoglobin 29.9 pg (28.0-32.0); Mean Corpuscular Hgb Conc. 33.9 g/dL (32.0-36.0); Mean Corpuscular Volume 88.3 fL (80.0-100.0); Monocytes # (auto) 0.3 10 ^3/uL (0-1.3); Monocytes % (auto) 6.1 % (0.0-12.0); Neutrophils # (auto) 3.2 10 ^3/uL (1.6-8.6); Neutrophils % (auto) 59.4 % (37.0-80.0); Nucleated Red Blood Cells % 0.1 %; Platelet Count (auto) 199 10^3/uL (140-450); Red Blood Cells 4.21 10^6/uL (4.0-5.20); Red Cell Distribution Width 14.3 % (11.8-14.3); White Blood Cell 5.4 10^3/uL (4.4-10.8)
[2024-11-08 07:55] LABS: Urine Blood Negative /uL (Negative); Urine Clarity Clear (Clear); Urine Color Yellow (Yellow); Urine Protein, UAD Negative (Negative); Urine Specific Gravity 1.016 (1.001-1.035); Urine Squamous Epithelial Cell FEW /hpf (<5); Urine Urobilinogen Normal (Negative); Urine WBC 13 /HPF (0-5); Urine pH 5.5 (5.0-9.0)
[2024-11-08 08:12] LABS: Creatinine, Urine 70.25 mg/dL (30.0-125.0)
[2024-11-08 08:16] LABS: Alanine Aminotransferase 18 U/L (7-40); Albumin 4.4 g/dL (3.2-4.8); Alkaline Phosphatase 74 U/L (46-116); Anion Gap 8 (5-15); Aspartate Aminotransferase 16 U/L (13-40); BUN/Creatinine Ratio 12.7 (10.0-20.0); Bilirubin, Direct < 0.1 mg/dL (<0.3); Bilirubin, Total 0.3 mg/dL (0.2-1.0); Blood Urea Nitrogen 18 mg/dL (9-23); Calcium 10.2 mg/dL (8.7-10.4); Carbon Dioxide 29 mmol/L (20-31); Chloride 104 mmol/L (98-107); Cholesterol 214 mg/dL (< 200); Glucose 136 mg/dL (74-106); HDL Cholesterol 53 mg/dL (40-59); LDL Cholesterol 129 mg/dL (< 100); Potassium 4.8 mmol/L (3.5-5.1); Sodium 141 mmol/L (136-145); Total Protein 7.1 g/dL (5.7-8.2); Triglycerides 296 mg/dL (< 150)
== END | disposition home or self-care (01) ==
LOC: LAB 07:25
PROVIDERS: ATTEND Internal Medicine Cardiovascular Disease
DX: I10 Essential (primary) hypertension (principal); E11.9 Type 2 diabetes mellitus without complications; E55.9 Vitamin D deficiency, unspecified; N39.0 Urinary tract infection, site not specified; R00.2 Palpitations; D64.9 Anemia, unspecified
CPT/HCPCS: 36415; 80048; 80061; 80076; 81001; 82043; 82570; 83036; 84443; 85025

== ENCOUNTER 2024-12-05 12:15 | Outpatient (CLI) | payer MEDICARE, OTHER | END 2024-12-05 17:00 | disposition home or self-care (01) | LOC: LAB 12:15 | PROVIDERS: ATTEND Nurse Practitioner Family | DX: N39.0 Urinary tract infection, site not specified (principal); R30.0 Dysuria | CPT/HCPCS: 87086 ==

== ENCOUNTER 2025-03-06 16:11 | Inpatient (IN) | payer MEDICARE, OTHER ==
[~2025-03-06] VITALS: Ht 149.9 cm; Wt 81.5 kg
[2025-03-06] MEDS: SODIUM CHLORIDE 0.9% 1,000 ML IV ONE (16:30)
[2025-03-06 17:04] LABS: Hematocrit 39.9 % (36.0-46.0); Hemoglobin 13.2 g/dL (12.2-16.2); Mean Corpuscular Hemoglobin 29.4 pg (28.0-32.0); Mean Corpuscular Volume 88.5 fL (80.0-100.0); Nucleated Red Blood Cells % 0.1 %
--- NOTE | 2025-03-06 17:17 | DVH ---
EXAM: CT LS SPINE WO CONTRAST INDICATION: fall TECHNIQUE: Axial images of the lumbar spine have been obtained along with coronal and sagittal reform atted images. CT scans at this facility use dose modulation, iterative reconstruction, and/or weight based dosing when appropriate to reduce radiation dose to as low as reasonably achievable. COMPARISON: [facility] COMP 5 VIEW on DOS: 09/25/22 FINDINGS: ANATOMY: Five lumbar-type vertebral bodies are present. The most inferior well-formed disc space will be referred to as L5-S1 for purposes of numbering in this report. VERTEBRAL BODIES: Acute superior endplate and inferior endplate deformity with slight posterior infer ior endplate retropulsion measuring 2 mm likely compatible with burst fracture of T12. Subsequent rae perior and inferior endplate 20-30 percent concavity/height loss. SPINAL CANAL: Mild relative suspected spinal narrowing at L3-4 and L4-5 and L1-2 INTERVERTEBRAL DISCS: Multilevel posterior disc osteophyte complexes, incompletely characterized ramirez dick measuring up to 3-4 mm posteriorly at L3-4 and L4-5 and L1-2. FACETS: Moderate to severe multilevel lower lumbar spine facet arthropathy OTHER: Degenerative change of bilateral sacroiliac joints. Prior hardware placement along the left p osterior aspect of the sacroiliac joint. IMPRESSION: 1. Possible longitudinal split tear of the junction of the extra-articular and intra-articular segmen ts of the long head of the biceps tendon perched over the lesser tuberosity. The appearance of thicke diamante of the distal extra-articular segment of the long head of the biceps tendon with slightly dispro portionate amount of fluid
[2025-03-06 17:20] LABS: Alanine Aminotransferase 19 U/L (7-40); Albumin 4.4 g/dL (3.2-4.8); Alkaline Phosphatase 61 U/L (46-116); Anion Gap 12 (5-15); BUN/Creatinine Ratio 16.6 (10.0-20.0); Bilirubin, Total 0.7 mg/dL (0.2-1.0); Blood Urea Nitrogen 24 mg/dL (9-23); Calcium 8.4 mg/dL (8.7-10.4); Carbon Dioxide 25 mmol/L (20-31); Chloride 102 mmol/L (98-107); Glucose 186 mg/dL (74-106); Potassium 4.1 mmol/L (3.5-5.1); Sodium 139 mmol/L (136-145); Total Protein 7.0 g/dL (5.7-8.2)
[2025-03-06 17:21] LABS: Magnesium 1.3 mg/dL (1.6-2.6)
--- NOTE | 2025-03-06 17:50 | ED.PDOC ---
Link. trauma (HPI) HPI Comments This is a 79-year-old female with past medical history of diabetes, GERD, dyslipidemia and CKD came to the hospital due to severe lower back pain. Per patient, she has a mechanical fall 3 days back, fell on the ground hit her back on the ground. Post fall, she reported of low-back pain which gradually has worsened and prompted this visit. She denies of loss of consciousness, headache, dizziness, chest pain with shortness of breaths Chief Complaint: Fall Injury Time Seen by MD: 16:16 Primary Care Provider: KAMILLE Allergies: Coded Allergies: No Known Drug Allergy (Verified Allergy, Unknown, 01/22/21) Home Meds Active Scripts Furosemide (Lasix) 40 Mg Tab, 80 MG PO DAILY for 30 Days, #60 TAB 6 Refills Prov:CAROLANN GREENE DO 12/07/23 Sevelamer Hydrochloride (Renagel) 800 Mg Tab, 2400 MG PO TIDWM for 30 Days, #270 TAB 6 Refills Prov:CAROLANN GREENE DO 12/07/23 Reported Medications Cranberry Extract (CRANBERRY) 600 Mg Tab, 32592 MG PO DAILY, TAB 12/06/23 Acetaminophen (Tylenol 8 Hour Arthritis) 650 Mg Tab, 850 MG PO BID PRN for PAIN SCALE 1 THRU 6, TAB 12/06/23 Mannose (D-Mannose) 500 Mg Cap, 1000 MG PO DAILY, CAP 12/06/23 Lactobacillus (PROBIOTIC) Cap, 1 CAP PO DAILY, CAP 12/06/23 B-Complex Vitamins (B Complex) Cap, 1 CAP PO DAILY, CAP 12/06/23 Calcium Carbonate-Vitamin D (Calcium 500 + D) +D Tab, 500 MG PO, TAB 12/06/23 Multiple Vitamin (Multivitamins) Tab, 1 TAB PO DAILY, #90 TAB 3 Refills 12/06/23 Tolterodine Tartrate (Tolterodine Tartrate ER) 4 Mg Cap, 1 CAP PO DAILY 12/06/23 Triamcinolone Acetonide (Kenalog) 1 Applic Ap, 1 APPLIC TOP 12/06/23 Ezetimibe (Ezetimibe) 10 Mg Tab, 1 TAB PO DAILY 12/06/23 Dapagliflozin Propanediol (Farxiga) 10 Mg Tab, 1 TAB PO DAILY 12/06/23 Levothyroxine Sodium (Levothyroxine Sodium) 50 Mcg Tab, 1 TAB PO DAILY 12/06/23 Docusate Sodium (Docusate Sodium) 100 Mg Cap, 1 CAP PO BID 12/06/23 Glipizide (Glipizide) 5 Mg Tab, 1 TAB PO BID 12/06/23 Pantoprazole Sodium Sesquihydr (Pantoprazole Sodium Dr) 40 Mg Tab, 20 MG PO DAILY 12/06/23 Metoprolol Tartrate (Lopressor) 25 Mg Tb, 1 TAB PO DAILY 12/06/23 Vibegron (Gemtesa) 75 Mg Tab, 1 TAB PO DAILY 12/06/23 Solifenacin Succinate (Solifenacin Succinate) 5 Mg Tab, 1 TAB PO DAILY 12/06/23 Glucose Blood (Freestyle Lite Test Strip) Lite Lizzeth, 1 STRIP XX TID 12/06/23 Gabapentin (Gabapentin) 600 Mg Tab, 1 TAB PO HS 12/06/23 Gabapentin (Gabapentin) 100 Mg Cap, 200 CAP PO QAM 12/06/23 Cyanocobalamin (B12) 1,000 Mcg Tab, 1000 MCG PO DAILY, TAB 04/08/21 Cholecalciferol (VITAMIN D3) 2,000 Unit Tab, 5000 UNIT PO DAILY, TAB 04/08/21 Dicyclomine Hcl (BENTYL CAPSULE) 10 Mg Cp, 10 MG PO BIDP PRN for FOR STOMACH DISTRESS, CAP 01/22/21 Cetirizine Hcl (ZYRTEC ALLERGY) 10 Mg Tab, 10 MG PO DAILYP PRN for FOR ITCHING, TAB 01/22/21 Metoclopramide Hcl (Reglan) 5 Mg Tab, 5 MG PO BIDP PRN for FOR STOMACH DISTRESS, TAB 01/22/21 Dulaglutide (Trulicity) 1.5 Mg/0.5 Ml Inj, 1.5 MG SC QWEEKLY, INJ 01/22/21 Potassium Chloride (POTASSIUM CHLORIDE CR) 10 Meq Tb, 10 MEQ PO DAILY PRN for WHEN TAKING LASIX, TAB 01/22/21 Metformin Hydrochloride (Metformin Hcl) 500 Mg Tab, 1000 MG PO BID for 30 Days, MG 01/22/21 Lisinopril (Lisinopril) 5 Mg Tab, 5 MG PO HS for 30 Days, MG 11/22/19 Mode of Arrival: EMS Past Medical History PAST MEDICAL HISTORY: DM, GERD, High Lipids, HTN, Kidney Stones Surgical History: Cholecystectomy [employer] 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 Family History Family History: No family hx of HTN Social History Smoker: Non-Smoker Alcohol: Rarely Drugs: Denies Drug Use Lives In: Home Physical Exam General Appearance: No Apparent Distress, Normal HEENT: Normal ENT Inspection, Pharynx Normal, TMs Normal Neck: Full Range of Motion, Non-Tender, Normal, Normal Inspection Respiratory: Chest Non-Tender, Lungs Clear, No Accessory Muscle Use, No Respiratory Distress, Normal Breath Sounds Cardiovascular: No Edema, No JVD, No Murmur, No Gallop, Normal Peripheral Pulses, Regular Rate/Rhythm Breast Exam: Deferred Gastrointestinal: No Organomegaly, Non Tender, No Pulsatile Mass, Normal Bowel Sounds, Soft Genitalia: Deferred Pelvic: Deferred Rectal: Deferred Extremities: No calf tenderness, Normal capillary refill, Normal inspection, Normal range of motion, Non-tender, No pedal edema Musculoskeletal : Apperance: Normal Neurologic: Alert, 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 Was a procedure done?: No Differential Diagnosis Multiple Trauma: Spine Injury, Abrasions, Contusion, Laceration Neck Injury: Cervical Muscle Spasm X-Ray, Labs, Meds, VS Vital Signs Date Time Temp Pulse Resp B/P (MAP) Pulse Ox O2 Delivery O2 Flow Rate FiO2 03/06/25 18:03 101 18 94 Room Air 03/06/25 17:56 101 18 112/74 (87) 94 03/06/25 16:11 98.6 100 18 152/86 95 98.6 Lab Test 03/06/25 16:45 Range/Units White Blood Count 8.6 4.4-10.8 10^3/uL Red Blood Count 4.51 4.0-5.20 10^6/uL Hemoglobin 13.2 12.2-16.2 g/dL Hematocrit 39.9 36.0-46.0 % Mean Corpuscular Volume 88.5 80.0-100.0 fL Mean Corpuscular Hemoglobin 29.4 28.0-32.0 pg Mean Corpuscular Hemoglobin Concent 33.2 32.0-36.0 g/dL Red Cell Distribution Width 15.4 H 11.8-14.3 % Platelet Count 203 140-450 10^3/uL Mean Platelet Volume 6.7 L 6.9-10.8 fL Neutrophils (%) (Auto) 83.6 H 37.0-80.0 % Lymphocytes (%) (Auto) 10.4 10.0-50.0 % Monocytes (%) (Auto) 4.6 0.0-12.0 % Eosinophils (%) (Auto) 1.1 0.0-7.0 % Basophils (%) (Auto) 0.3 0.0-2.0 % Neutrophils # (Auto) 7.2 1.6-8.6 10 ^3/uL Lymphocytes # (Auto) 0.9 0.4-5.4 10 ^3/uL Monocytes # (Auto) 0.4 0-1.3 10 ^3/uL Eosinophils # (Auto) 0.1 0-0.8 10 ^3/uL Basophils # (Auto) 0 0-0.2 10 ^3/uL Nucleated Red Blood Cells 0.1 % Sodium Level 139 136-145 mmol/L Potassium Level 4.1 3.5-5.1 mmol/L Chloride Level 102 98-107 mmol/L Carbon Dioxide Level 25 20-31 mmol/L Anion Gap 12 5-15 Blood Urea Nitrogen 24 H 9-23 mg/dL Creatinine 1.45 H 0.550-1.02 mg/dL Glomerular Filtration Rate Calc 37 >90 mL/min BUN/Creatinine Ratio 16.6 10.0-20.0 Serum Glucose 186 H 74-106 mg/dL Calcium Level 8.4 L 8.7-10.4 mg/dL Magnesium Level 1.3 L 1.6-2.6 mg/dL Total Bilirubin 0.7 0.2-1.0 mg/dL Aspartate Amino Transferase (AST) 19 13-40 U/L Alanine Aminotransferase (ALT) 19 7-40 U/L Alkaline Phosphatase 61 46-116 U/L Troponin I High Sensitivity 5 </=34 ng/L Total Protein 7.0 5.7-8.2 g/dL Albumin 4.4 3.2-4.8 g/dL Current Medications Medications (Trade) Dose Ordered Sig/David Route Start Time Stop Time Status Last Admin Acetaminophen/ Hydrocodone Bitart ([place] 5/325MG Tab) 1 tab ONCE ONCE PO 03/06/25 16:30 03/06/25 17:36 DC 03/06/25 17:54 Sodium Chloride 1,000 ml @ 1,000 mls/hr Q1H ONCE IV 03/06/25 16:30 03/06/25 17:36 DC 03/06/25 16:30 Time of 1ST Reevaluation: 19:44 Reevaluation 1ST: Unchanged Patient Education/Counseling: Diagnosis, Treatment, Prognosis, Need For Follow Up Family Education/Counseling: Diagnosis, Treatment, Prognosis, Need For Follow Up Comments Patient came to the hospital due to CVA intractable lower back pain due to mechanical fall. Patient was vitally stable. CBC within normal limits CMP shows raised creatinine. Patient was given IV fluid and [place]. CT scan performed, showed possible longitudinal split tear of the junction of the extra-articular and intra-articular segments of the long head of the biceps tendon perched over the lesser tuberosity On subsequent checkup, patient was still complaining of intractable low back pain Patient will be admitted in hospital for further workup and management. Departure 1 Departure Time of Disposition: 19:45 Impression: Primary Impression: Traumatic injury of lumbar spinal region Disposition: ADMITTED INPATIENT Admit to: Med Surg Condition: Guarded Critical Care Note Critical Care Time?: No Stability Stability form required: No Heart Score Heart Score: Heart Score Response (Comments) Value History N/A 0 EKG N/A 0 Age N/A 0 Risk Factors N/A 0 Troponin N/A 0 Total 0 JA HARRIS Mar 06, 2025 17:50
[2025-03-06] MEDS: HYDROcodone-ACET 5/325MG TAB PO ONE (17:54)
[2025-03-07] VITALS (9 sets, daily range): BP systolic 101–123; BP diastolic 65–76; PULSE 97–112; RESP 17–19; TEMP 97.9–98.4; O2SAT 92–99
[2025-03-07] MEDS ORDERED: ACETAMINOPHEN 325 MG TAB PO PRN
[2025-03-07] MEDS ORDERED: DEXTROSE (50%) 50ML SYRG IV PRN (02:15)
[2025-03-07] MEDS: MAGNESIUM SULFATE 1GM/100ML 100 ML IV SCH (02:20)
[2025-03-07] MEDS: HYDROcodone-ACET 5/325MG TAB PO PRN (03:09)
[2025-03-07] MEDS: ACCU-CHEK COMFORT CURVE STRIP VI SCH (04:31)
[2025-03-07] MEDS: InsuLIN REG 1unit/0.01ml Soln (100units/ml) SC SCH (06:03)
--- NOTE | 2025-03-07 06:10 | DVHHPRES ---
History of Present Illness Resident Creating Document: FRANCIE REYES RESIDENT History of Present Illness History of Present Illness (HPI): Rae Mena is a 79-year-old female with a significant past medical history including diabetes mellitus, chronic kidney disease (CKD), hypothyroidism, dyslipidemia, osteoarthritis, and gas troesophageal reflux disease (GERD). She presented to the hospital following a mechanical fall at home on Wednesday, which occurred when she tripped over a mat and landed on a tile floor, impacting her shoulder. Since the incident, she has been experiencing persistent back pain and left thumb pain. The back pain is described as sharp, continuous, and radiating across the waistline, with an intensity of 8 out of 10. It is aggravated by standing and weight-bearing activities, and alleviated by rest. She also reports back spasms and flank pain, which have made ambulation difficult. Past Medical History (PMH): diabetes mellitus, chronic kidney disease (CKD), hypothyroidism, dyslipidemia, osteoarthritis, and gastroesophageal reflux disease (GERD) Past Surgical History (PSH): Knee and hip joint replacement surgeries Family history (FH): Breast cancer in mother at 70 years EtOH: Denies alcohol use Smoking /Vaping: Denies smoking Recreational Drugs: Denies recreational drug use Residence: Lives with Home Medications: Metformin, metoprolol, Gemtesa, Farxiga, glipizide, gabapentin, Zetia, Bentyl Allergies: Pollen PCP: Dr. Graham Specialist relevant to admission: Orthopedics Review of Systems Review of Systems General: patient denies fever, fatigue, weaknes, sweating, any recent changes in appetite and weight HEENT: No headaches, visiual changes, hearing loss, tinnitus, nasal congestion and discharge, and sore throat. Cardiovascular: Denies chest pain, palpitations, dyspnea on exertion, orthopnea, or claudication. Respiratory: No cough, and wheezing. Gastrointestinal: Denies nausea, vomiting, dysphagia, odynophagia, heartburn, abdominal pain, flatulence, bloating, diarrhea, constipation, change in stool, or blood in stool. Genitourinary: No dysuria, hematuria, discharge, frequency, urgency, nocturia, incontinence, and urinary retention. Endocrine: No heat or cold intolerance, polydipsia, polyuria, and polyphagia. Neurological: No dizziness, extremity weakness and numbness, tremors, gait disturbance, seizures, and memory impairment. Psychiatric: Denies depression, anxiety,or insomnia. Musculoskeletal: Complains of pain in the left thumb, back pain and flank pain Skin: No rashes, itching, skin lesion, changes in hair, nail, skin texture and breast. Hematologic/Lymphatic: Denies easy bruising, bleeding tendencies, or lymph node enlargement. Allergies: Coded Allergies: No Known Drug Allergy (Verified Allergy, Unknown, 01/22/21) Exam Vital Signs Vital Signs Date Time Temp Pulse Resp B/P (MAP) Pulse Ox O2 Delivery O2 Flow Rate FiO2 03/06/25 22:41 98.8 109 18 114/62 (79) 95 98.8 03/06/25 18:03 Room Air Exam General Appearance: Alert, Oriented X3, Cooperative, No acute distress HEENT: Atraumatic, PERRLA, EOMI, Mucous membrane moist/pink Respiratory: Clear to auscultation, Normal air movement Cardiovascular: Regular rate, Normal S1, Normal S2, No murmurs, no chest wall tenderness Abdominal: Normal bowel sounds, Soft, No tenderness, No hepatospenomegaly, No masses Extremities: Discoloration, swelling and tenderness in the left arm, tenderness in lumbar spine Skin: No rashes, No breakdown, No significant lesion Neuro: Normal gait, Normal speech, Strength at 5/5 X4 ext, Normal tone, Sensation intact, Cranial nerves 3-12 NL, Reflexes 2+ Psych/Mental Status: Mental status NL, Mood NL Labs/Xrays Labs Test 03/06/25 16:45 Range/Units White Blood Count 8.6 4.4-10.8 10^3/uL Red Blood Count 4.51 4.0-5.20 10^6/uL Hemoglobin 13.2 12.2-16.2 g/dL Hematocrit 39.9 36.0-46.0 % Mean Corpuscular Volume 88.5 80.0-100.0 fL Mean Corpuscular Hemoglobin 29.4 28.0-32.0 pg Mean Corpuscular Hemoglobin Concent 33.2 32.0-36.0 g/dL Red Cell Distribution Width 15.4 H 11.8-14.3 % Platelet Count 203 140-450 10^3/uL Mean Platelet Volume 6.7 L 6.9-10.8 fL Neutrophils (%) (Auto) 83.6 H 37.0-80.0 % Lymphocytes (%) (Auto) 10.4 10.0-50.0 % Monocytes (%) (Auto) 4.6 0.0-12.0 % Eosinophils (%) (Auto) 1.1 0.0-7.0 % Basophils (%) (Auto) 0.3 0.0-2.0 % Neutrophils # (Auto) 7.2 1.6-8.6 10 ^3/uL Lymphocytes # (Auto) 0.9 0.4-5.4 10 ^3/uL Monocytes # (Auto) 0.4 0-1.3 10 ^3/uL Eosinophils # (Auto) 0.1 0-0.8 10 ^3/uL Basophils # (Auto) 0 0-0.2 10 ^3/uL Nucleated Red Blood Cells 0.1 % Sodium Level 139 136-145 mmol/L Potassium Level 4.1 3.5-5.1 mmol/L Chloride Level 102 98-107 mmol/L Carbon Dioxide Level 25 20-31 mmol/L Anion Gap 12 5-15 Blood Urea Nitrogen 24 H 9-23 mg/dL Creatinine 1.45 H 0.550-1.02 mg/dL Glomerular Filtration Rate Calc 37 >90 mL/min BUN/Creatinine Ratio 16.6 10.0-20.0 Serum Glucose 186 H 74-106 mg/dL Calcium Level 8.4 L 8.7-10.4 mg/dL Magnesium Level 1.3 L 1.6-2.6 mg/dL Total Bilirubin 0.7 0.2-1.0 mg/dL Aspartate Amino Transferase (AST) 19 13-40 U/L Alanine Aminotransferase (ALT) 19 7-40 U/L Alkaline Phosphatase 61 46-116 U/L Troponin I High Sensitivity 5 </=34 ng/L Total Protein 7.0 5.7-8.2 g/dL Albumin 4.4 3.2-4.8 g/dL SEPSIS Sepsis Screen Date sepsis recognized/suspect: Mar 06, 2025 Time Sepsis recognized/suspect: 1610 Recent Procedure: No On Antibiotic Therapy: No Respiratory Rate >20: No Heart Rate >90: No Temp<36 C (96.8 F) or >38.3 C: No SBP <90 or MAP <65 mmHG: No New Acute Mental Status Change: No Is the patient on CPAP, BIPAP,: No Physician Orders Ls Spine Wo Contrast (9/9/25 16:17) Electrocardigram (03/06/25 19:44) Vital Signs Date Time Temp Pulse Resp B/P (MAP) Pulse Ox O2 Delivery O2 Flow Rate FiO2 03/06/25 22:41 98.8 109 18 114/62 (79) 95 98.8 03/06/25 18:03 101 18 94 Room Air 03/06/25 17:56 101 18 112/74 (87) 94 03/06/25 16:11 98.6 100 18 152/86 95 98.6 Laboratory Tests Test 03/06/25 16:45 White Blood Count 8.6 10^3/uL (4.4-10.8) Medications Medications Dose Ordered Sig/David Route Start Time Stop Time Status Last Admin Dose Admin Acetaminophen/ Hydrocodone Bitart 1 tab ONCE ONCE PO 03/06/25 16:30 03/06/25 17:36 DC 03/06/25 17:54 1 TAB Sodium Chloride 1,000 ml @ 1,000 mls/hr Q1H ONCE IV 03/06/25 16:30 03/06/25 17:36 DC 03/06/25 16:30 1,000 MLS/HR Assessment/Plan Assessment/Plan Assessment and plan # Mechanical Fall # T12 Burst fracture # ?Osteoporosis - Physical therapy consult - Consider orthopedic evaluation - Consider bisphosphonate on discharge - DEXA Scan Outpatient # possible left thumb fracture -left thumb x-ray : Acute 1st distal phalanx fracture. - orthopedic evaluation -pain meds pRN # Possible AMADA on CKD due to VMN -IV fluids -monitor kidney function # Type 2 diabetes mellitus - Continue home medications # Mild asymptomatic hypocalcemia - Monitor calcium levels # Hypomagnesemia - Magnesium supplemented # GERD - Continue Protonix # Dyslipidemia - Continue ezetimibe # Osteoarthritis - Post knee and hip replacement surgeries - Outpatient follow-up with PCP after discharge # Hypothyroidism - Monitor TSH levels PUD prophylaxis: protonix 20mg DVT prophylaxis: Levonox 40mg Barriers to discharge: Medical diagnosis and management in progress. Patient lives with . Independent for ADL. PCP: Dr. Graham Specialist Relevent To Admission: Orthopedics Case discussed with Dr. Reyes. Code Status: DNR+DNI. Complex patient care discussion needed. Spend total 35 minutes for bedside assessment, case discussion and management. Plan discussed with: Patient Date of Service: Mar 06, 2025 Billing Provider: CONNIE REYES MD Common Visit Codes: [id number] INP/OBS CARE (HIGH) Secondary Visit Codes: [id number] CARE PLAN 30 MINUTES FRANCIE REYES RESIDENT Mar 06, 2025 23:53 HAYLEY BELTRE RESIDENT Mar 07, 2025 08:47
[2025-03-07 06:33] LABS: Hematocrit 35.1 % (36.0-46.0); Hemoglobin 11.7 g/dL (12.2-16.2); Mean Corpuscular Hemoglobin 29.5 pg (28.0-32.0); Mean Corpuscular Volume 88.3 fL (80.0-100.0); Nucleated Red Blood Cells % 0.0 %
[2025-03-07 06:42] LABS: INR 1.06 (0.9-1.15); Partial Thromboplastin Time 31.4 SEC (24.5-34.5); Prothrombin Time 11.2 sec (9.3-11.8)
[2025-03-07 06:45] LABS: Alanine Aminotransferase 15 U/L (7-40); Albumin 3.9 g/dL (3.2-4.8); Alkaline Phosphatase 51 U/L (46-116); Anion Gap 12 (5-15); BUN/Creatinine Ratio 11.6 (10.0-20.0); Blood Urea Nitrogen 16 mg/dL (9-23); Carbon Dioxide 22 mmol/L (20-31); Chloride 104 mmol/L (98-107); Potassium 3.6 mmol/L (3.5-5.1); Sodium 138 mmol/L (136-145); Total Protein 6.7 g/dL (5.7-8.2)
[2025-03-07 06:46] LABS: Bilirubin, Total 0.5 mg/dL (0.2-1.0); Calcium 8.1 mg/dL (8.7-10.4); Glucose 133 mg/dL (74-106)
--- NOTE | 2025-03-07 08:03 | DVH ---
XY L 1ST FINGER XRAY INDICATION: Pain and swelling in left thumb following mechanical fall TECHNICAL DATA: Frontal view of the left hand and lateral and oblique views of the left thumb were ob tained. COMPARISON: None FINDINGS: There is an acute fracture of the 1st distal phalanx. There is severe 1st carpometacarpal joint space narrowing and osteophytes. Plate and screw fixation in the distal radius. IMPRESSION: 1. Acute 1st distal phalanx fracture.
[2025-03-07] MEDS: PANTOPRAZOLE 40 MG TAB PO SCH (10:25)
[2025-03-07] MEDS: GABAPENTIN 100 MG CAP PO SCH (10:26)
[2025-03-07] MEDS: METOPROLOL SUCCINATE XL 50 MG TAB PO SCH (10:26)
[2025-03-07] MEDS: EZETIMIBE 10 MG TAB PO SCH (10:27)
[2025-03-07] MEDS: ENOXAPARIN SOD 30 MG/0.3 ML SYRINGE IV SCH (10:27)
--- NOTE | 2025-03-07 11:10 | DVHPN2 ---
Subjective The patient seen and examined at bedside. Patient has lot of pain. Reviewed: Care Plan, H&P, Labs, Medications, Previous Orders, Radiology Changes from previous H/P or p: No Changes Objective Vitals Vital Signs Date Time Temp Pulse Resp B/P (MAP) Pulse Ox O2 Delivery O2 Flow Rate FiO2 03/07/25 10:26 98 119/68 03/07/25 09:00 97.9 18 96 97.9 03/07/25 03:10 Nasal Cannula* 2 28 Intake/Output Intake and Output 03/07/25 07:00 Intake Total 400 ml Balance 400 ml Intake Oral 200 ml IV Total 200 ml General Appearance: Alert, Cooperative, mild distress HEENT: Atraumatic, PERRLA, EOMI, Mucous membr. moist/pink Neck: Supple Lungs: Clear to auscultation, Normal air movement Cardiovascular: Regular rate, Normal S1, Normal S2, No murmurs, Gallops, Rubs Abdomen: Normal bowel sounds, Soft, No tenderness Neuro: Cranial nerves 3-12 NL Psych/Mental Status: Mental status NL Medications Current Medications Medications Dose Ordered Sig/David Route Start Time Stop Time Status Last Admin Dose Admin Acetaminophen/ Hydrocodone Bitart 1 tab Q4HP PRN PO 03/07/25 00:00 03/07/25 10:26 1 TAB Docusate Sodium 100 mg BIDPRN PRN PO 03/07/25 00:00 Acetaminophen 650 mg Q6HP PRN PO 03/07/25 00:00 Diagnostic Test (Pha) 1 strip IQ4HR 03/07/25 04:00 03/07/25 04:31 1 STRIP Insulin Human Regular IQID SC 03/07/25 07:00 Dextrose 50 ml UD PRN IV 03/07/25 02:15 Metoprolol Succinate 25 mg DAILY PO 03/07/25 10:00 03/07/25 10:26 25 MG Gabapentin 200 mg DAILY PO 03/07/25 10:00 03/07/25 10:26 200 MG Gabapentin 600 mg DAILY PO 03/07/25 20:00 EZETIMIBE 10 mg DAILY PO 03/07/25 10:00 03/07/25 10:27 10 MG Pantoprazole Sodium 20 mg DAILY PO 03/07/25 10:00 03/07/25 10:25 20 MG Enoxaparin Sodium 30 mg DAILY IV 03/07/25 10:00 03/07/25 10:27 30 MG Laboratory Results Laboratory Tests 03/07/25 05:50 Chemistry Test 03/06/25 16:45 03/07/25 05:50 Albumin 4.4 g/dL (3.2-4.8) 3.9 g/dL (3.2-4.8) Calcium Level 8.4 mg/dL (8.7-10.4) L 8.1 mg/dL (8.7-10.4) L Magnesium Level 1.3 mg/dL (1.6-2.6) L Total Protein 7.0 g/dL (5.7-8.2) 6.7 g/dL (5.7-8.2) Coagulation Test 03/07/25 05:50 Prothrombin Time 11.2 sec (9.3-11.8) Prothrombin Time INR 1.06 (0.9-1.15) Activated Partial Thromboplast Time 31.4 SEC (24.5-34.5) LFT Test 03/06/25 16:45 03/07/25 05:50 Alanine Aminotransferase (ALT) 19 U/L (7-40) 15 U/L (7-40) Alkaline Phosphatase 61 U/L (46-116) 51 U/L (46-116) Aspartate Amino Transferase (AST) 19 U/L (13-40) 17 U/L (13-40) Total Bilirubin 0.7 mg/dL (0.2-1.0) 0.5 mg/dL (0.2-1.0) Labs and/or images reviewed: Labs reviewed by me Assessment/Plan Assessment/Plan # Mechanical Fall # T12 Burst fracture # ?[facility]steoporosis - [facility] - Consider bisphosphonate on discharge - DEXA Scan Outpatient # possible left thumb fracture -left thumb x-ray : Acute 1st distal phalanx fracture. - orthopedic evaluation -pain meds pRN # Possible AMADA on CKD due to VMN -IV fluids -monitor kidney function # Type 2 diabetes mellitus - Continue home medications # Mild asymptomatic hypocalcemia - Monitor calcium levels # Hypomagnesemia - Magnesium supplemented # GERD - Continue Protonix # Dyslipidemia - Continue ezetimibe # Osteoarthritis - Post knee and hip replacement surgeries - Outpatient follow-up with PCP after discharge # Hypothyroidism - Monitor TSH levels Continue current management Continue with pain medication Waiting for orthopedic surgeon to see the patient. Plan discussed with: Patient Date of Service: Mar 07, 2025 Billing Provider: MARKO PERRY MD Common Visit Codes: [id number] INP/OBS CARE(HIGH) MARKO PERRY MD Mar 07, 2025 11:10
--- NOTE | 2025-03-07 19:04 | DVHINCON2 ---
Consult Note Consult Consult Note Reason for Consult: F/u lower back pain after ground-level fall; left thumb pain History of Present Illness (HPI) The patient is a 79-year-old female who sustained a ground-level fall and was admitted for evaluation of persistent severe lower back pain. She denies lower extremity weakness, numbness, bowel or bladder incontinence, or saddle anesthesia. Pain is localized to the thoracolumbar junction, worse with weight-bearing and ambulation, partially relieved with rest. No radicular symptoms are reported. She also reports left thumb pain after the fall. Pain is localized to the distal phalanx and IP joint region. She denies numbness, tingling, or open skin lesions. Reports mild swelling and pain with thumb movement and gripping. Physical Examination General: Alert, oriented, in mild distress due to pain. Spine: Tenderness to palpation over lumbar region and midline at T11T12. Neurological Exam: Motor: 4/5 bilateral lower extremities 2/2 Pain Sensory: Intact to light touch throughout L2S1 dermatomes Reflexes: 2+ and symmetric Gait: Not tested due to pain with weight-bearing Left Hand/Thumb: Mild swelling and tenderness to palpation over distal phalanx and IP joint. No open skin lesions, erythema, or nail-bed injury. Pain with thumb motion and weight-bearing through hand. Neurovascular: Intact cap refill < 2 sec, sensation intact, no tingling or numbness reported. No wrist tenderness on exam. Imaging CT LS spine without contrast (03/06/25): Acute T12 burst fracture with ~2030% vertebral body height loss and 2 mm posterior inferior endplate retropulsion. Multilevel posterior disc osteophyte complexes at L34, L45, and L12. Moderate to severe multilevel facet arthropathy. Degenerative changes at bilateral SI joints with prior hardware noted. Mild spinal canal narrowing at L34, L45, and L12. Left Thumb X-rays: Possible nondisplaced fracture of the distal phalanx with associated IP joint arthritic changes. No dislocation or acute intra-articular step-off seen. Assessment 1. Acute T12 burst fracture with moderate vertebral body height loss and mild retropulsion, Mild-Moderate pain, but no neurologic deficit. 2. Left thumb distal phalanx injury possible nondisplaced fracture vs. degenerative/contusion, neurovascularly intact, no open wound. 3. Chronic multilevel lumbar degenerative disease (facet arthropathy, disc osteophytes, SI joint degeneration). Plan 1. T12 Burst Fracture Management: TLSO brace when out of bed. Fitted to patient today. Maintain spinal precautions (no bending, twisting, lifting). Hospitalist/Primary team to do pain control and PT/OT with brace. Ortho - spine oncall consult today for follow-up for stability assessment and eval for kyphoplasty if pain remains uncontrolled. 2. Pain Control: Multimodal: per medicine/primary team 3. Mobility: PT/OT for ambulation with brace per Ortho Spine recs. Fall precautions. 4. Left Thumb Distal Phalanx Injury: Immobilize in thumb spica splint. Ice, elevation, analgesia. Outpatient orthopedic follow-up in 12 weeks with repeat X-rays to assess healing. Monitor for skin breakdown, neurovascular compromise, or worsening pain. 5. Bone Health: Outpatient PCM DEXA scan, vitamin D, calcium supplementation. 6. Monitoring: Serial neuro checks for spine. Repeat imaging if worsening pain or neuro change/Contact Ortho Sp[facility]. --- Impression: 79-year-old female with T12 burst fracture and possible nondisplaced left thumb distal phalanx fracture after ground-level fall. Plan for non-operative spine management with TLSO brace and pain control, thumb immobilization in thumb spica, and follow-up for both spine and hand. Plan discussed with: Patient, Other (bedside Nurse) Visit Coding Surgery Date of Service if different f: Mar 07, 2025 Billing Provider: ALANIS PASCAL Surgery Visit Codes: [id number] - INP CONSULT <55 MIN ALANIS PASCAL Mar 07, 2025 19:04
[2025-03-07] MEDS: GABAPENTIN 300 MG CAP PO SCH (20:00)
[2025-03-07] MEDS: MORPHINE SULFATE INJ 2 MG/ml SYRG IV PRN (21:54)
[2025-03-08] VITALS (8 sets, daily range): BP systolic 101–118; BP diastolic 46–78; PULSE 82–114; RESP 17–20; TEMP 97.8–98.6; O2SAT 90–97
[2025-03-08] MEDS ORDERED: DEXTROSE (50%) 50ML SYRG IV PRN (04:45)
[2025-03-08] MEDS: ACCU-CHEK COMFORT CURVE STRIP VI SCH (05:44)
[2025-03-08] MEDS: InsuLIN REG 1unit/0.01ml Soln (100units/ml) SC SCH (05:46)
[2025-03-08 07:21] LABS: Chloride 102 mmol/L (98-107); Potassium 4.0 mmol/L (3.5-5.1); Sodium 138 mmol/L (136-145)
[2025-03-08 07:22] LABS: Anion Gap 12 (5-15); Carbon Dioxide 24 mmol/L (20-31)
[2025-03-08 07:28] LABS: BUN/Creatinine Ratio 17.1 (10.0-20.0)
[2025-03-08 07:40] LABS: Hematocrit 33.0 % (36.0-46.0); Hemoglobin 11.2 g/dL (12.2-16.2); Mean Corpuscular Hemoglobin 29.9 pg (28.0-32.0); Mean Corpuscular Volume 87.7 fL (80.0-100.0)
[2025-03-08 07:43] LABS: Blood Urea Nitrogen 29 mg/dL (9-23); Calcium 8.4 mg/dL (8.7-10.4); Glucose 142 mg/dL (74-106)
[2025-03-08 08:48] LABS: Total Cells Counted 100.0 (100)
--- NOTE | 2025-03-08 11:09 | DVHPN2 ---
Subjective The patient seen and examined at bedside. Patient has lot of pain. Reviewed: Care Plan, H&P, Labs, Medications, Previous Orders, Radiology Changes from previous H/P or p: No Changes Objective Vitals Vital Signs Date Time Temp Pulse Resp B/P (MAP) Pulse Ox O2 Delivery O2 Flow Rate FiO2 03/08/25 09:08 98 20 110/71 03/08/25 09:00 97.9 94 97.9 03/07/25 20:00 Room Air* 0 21 Intake/Output Intake and Output 03/08/25 07:00 Intake Total 800 ml Balance 800 ml Intake Oral 800 ml # Voids 3 General Appearance: Alert, Cooperative, mild distress HEENT: Atraumatic, PERRLA, EOMI, Mucous membr. moist/pink Neck: Supple Lungs: Clear to auscultation, Normal air movement Cardiovascular: Regular rate, Normal S1, Normal S2, No murmurs, Gallops, Rubs Abdomen: Normal bowel sounds, Soft, No tenderness Neuro: Cranial nerves 3-12 NL Psych/Mental Status: Mental status NL Medications Current Medications Medications Dose Ordered Sig/David Route Start Time Stop Time Status Last Admin Dose Admin Acetaminophen/ Hydrocodone Bitart 1 tab Q4HP PRN PO 03/07/25 00:00 03/07/25 14:21 1 TAB Docusate Sodium 100 mg BIDPRN PRN PO 03/07/25 00:00 Acetaminophen 650 mg Q6HP PRN PO 03/07/25 00:00 Metoprolol Succinate 25 mg DAILY PO 03/07/25 10:00 03/08/25 09:04 25 MG Gabapentin 200 mg DAILY PO 03/07/25 10:00 03/08/25 09:02 200 MG Gabapentin 600 mg DAILY PO 03/07/25 20:00 03/07/25 20:00 600 MG EZETIMIBE 10 mg DAILY PO 03/07/25 10:00 03/07/25 10:27 10 MG Pantoprazole Sodium 20 mg DAILY PO 03/07/25 10:00 03/08/25 09:03 20 MG Enoxaparin Sodium 30 mg DAILY IV 03/07/25 10:00 03/07/25 10:27 30 MG Morphine Sulfate 2 mg Q4HPRN PRN IV 03/07/25 16:45 03/08/25 09:08 2 MG Diagnostic Test (Pha) 1 strip Q6HR 03/08/25 06:00 03/08/25 05:44 1 STRIP Insulin Human Regular Q6HR SC 03/08/25 06:00 03/08/25 05:46 2 UNITS Dextrose 50 ml UD PRN IV 03/08/25 04:45 Laboratory Results Laboratory Tests 03/08/25 05:59 Chemistry Test 03/08/25 05:59 Calcium Level 8.4 mg/dL (8.7-10.4) L Labs and/or images reviewed: Labs reviewed by me, Image(s) reviewed by me Assessment/Plan Assessment/Plan # Mechanical Fall # T12 Burst fracture # ?Osteoporosis - Physical therapy consult - [facility] for orthopedic evaluation - Consider bisphosphonate on discharge - DEXA Scan Outpatient # possible left thumb fracture -left thumb x-ray : Acute 1st distal phalanx fracture. - orthopedic evaluation -pain meds pRN # Possible AMADA on CKD due to VMN -IV fluids -monitor kidney function # Type 2 diabetes mellitus - Continue home medications # Mild asymptomatic hypocalcemia - Monitor calcium levels # Hypomagnesemia - Magnesium supplemented # GERD - Continue Protonix # Dyslipidemia - Continue ezetimibe # Osteoarthritis - Post knee and hip replacement surgeries - Outpatient follow-up with PCP after discharge # Hypothyroidism - Monitor TSH levels Continue current management Continue with pain medication Appreciated orthopedic surgeon input We will give pain medication We will consult spine surgeon per recommendation of orthopedic surgeon Get the physical therapy to help the patient out of bed and ambulate if t olerated. Plan discussed with: Patient My Orders Orders - MARKO PERRY MD Procedure Category Date Status Time Complete Blood Count LAB 03/09/25 Verified 05:00 Complete Blood Count LAB 03/10/25 Verified 05:00 Complete Blood Count LAB 03/11/25 Verified 05:00 Complete Blood Count LAB 03/12/25 Verified 05:00 Basic Metabolic Panel LAB 03/09/25 Verified 05:00 Basic Metabolic Panel LAB 03/10/25 Verified 05:00 Basic Metabolic Panel LAB 03/11/25 Verified 05:00 Basic Metabolic Panel LAB 03/12/25 Verified 05:00 Morphine Sulfate PHA 03/07/25 In Process Injection 16:[address] Robb CONS 03/08/25 Transmitted [place](Spine) 09:29 Date of Service: Mar 08, 2025 Billing Provider: MARKO PERRY MD Common Visit Codes: [id number] INP/OBS CARE(HIGH) MARKO PERRY MD Mar 08, 2025 11:09
[2025-03-08] MEDS: DOCUSATE SOD 100 MG CAP PO PRN (11:56)
[2025-03-08] MEDS: GABAPENTIN 300 MG CAP PO SCH (20:00)
[2025-03-08 20:27] LABS: Urine Budding Yeast LOADED /hpf (None Seen); Urine Protein, UAD 1+ (Negative); Urine WBC Clumps PRESENT /hpf (None Seen)
[2025-03-09] VITALS (8 sets, daily range): BP systolic 104–141; BP diastolic 66–84; PULSE 82–90; RESP 16–19; TEMP 97.7–98.2; O2SAT 95–99
[2025-03-09 06:11] LABS: Hematocrit 31.5 % (36.0-46.0); Hemoglobin 10.9 g/dL (12.2-16.2); Mean Corpuscular Hemoglobin 30.2 pg (28.0-32.0); Mean Corpuscular Volume 87.2 fL (80.0-100.0); Nucleated Red Blood Cells % 0.3 %
[2025-03-09 06:26] LABS: Carbon Dioxide 27 mmol/L (20-31); Chloride 101 mmol/L (98-107); Potassium 3.9 mmol/L (3.5-5.1); Sodium 136 mmol/L (136-145)
[2025-03-09 06:30] LABS: Calcium 8.4 mg/dL (8.7-10.4)
[2025-03-09 06:32] LABS: BUN/Creatinine Ratio 18.2 (10.0-20.0)
[2025-03-09 06:41] LABS: Blood Urea Nitrogen 28 mg/dL (9-23); Glucose 116 mg/dL (74-106)
[2025-03-09 06:52] LABS: Anion Gap 8 (5-15)
--- NOTE | 2025-03-09 11:29 | DVHPN2 ---
Subjective The patient seen and examined at bedside. Patient has lot of pain. Reviewed: Care Plan, H&P, Labs, Medications, Previous Orders, Radiology Changes from previous H/P or p: No Changes Objective Vitals Vital Signs Date Time Temp Pulse Resp B/P (MAP) Pulse Ox O2 Delivery O2 Flow Rate FiO2 03/09/25 10:17 90 141/84 03/09/25 08:26 98.0 17 97 98.0 03/09/25 08:00 Nasal Cannula* 3 32 Intake/Output Intake and Output 03/09/25 07:00 Intake Total 1150 ml Output Total 625 ml Balance 525 ml Intake Oral 1150 ml Output Urine Total 625 ml General Appearance: Alert, Cooperative, mild distress HEENT: Atraumatic, PERRLA, EOMI, Mucous membr. moist/pink Neck: Supple Lungs: Clear to auscultation, Normal air movement Cardiovascular: Regular rate, Normal S1, Normal S2, No murmurs, Gallops, Rubs Abdomen: Normal bowel sounds, Soft, No tenderness Neuro: Cranial nerves 3-12 NL Psych/Mental Status: Mental status NL Medications Current Medications Medications Dose Ordered Sig/David Route Start Time Stop Time Status Last Admin Dose Admin Acetaminophen/ Hydrocodone Bitart 1 tab Q4HP PRN PO 03/07/25 00:00 03/09/25 07:00 1 TAB Docusate Sodium 100 mg BIDPRN PRN PO 03/07/25 00:00 03/09/25 10:14 100 MG Acetaminophen 650 mg Q6HP PRN PO 03/07/25 00:00 Metoprolol Succinate 25 mg DAILY PO 03/07/25 10:00 03/09/25 10:17 25 MG Gabapentin 200 mg DAILY PO 03/07/25 10:00 03/09/25 10:18 200 MG EZETIMIBE 10 mg DAILY PO 03/07/25 10:00 03/09/25 10:23 10 MG Pantoprazole Sodium 20 mg DAILY PO 03/07/25 10:00 03/09/25 10:16 20 MG Enoxaparin Sodium 30 mg DAILY IV 03/07/25 10:00 03/09/25 10:19 30 MG Morphine Sulfate 2 mg Q4HPRN PRN IV 03/07/25 16:45 03/09/25 00:20 2 MG Diagnostic Test (Pha) 1 strip Q6HR 03/08/25 06:00 03/09/25 05:36 1 STRIP Insulin Human Regular Q6HR SC 03/08/25 06:00 03/09/25 05:39 2 UNITS Dextrose 50 ml UD PRN IV 03/08/25 04:45 Gabapentin 600 mg DAILY@1999 PO 03/08/25 20:00 03/08/25 20:00 600 MG Laboratory Results Laboratory Tests 03/09/25 04:50 Chemistry Test 03/09/25 04:50 Calcium Level 8.4 mg/dL (8.7-10.4) L Urinalysis Test 03/08/25 19:00 Urine Color Colorless (Yellow) Urine Clarity Ex.turbid (Clear) Urine pH 6.0 (5.0-9.0) Urine Specific [place] 1.009 (1.001-1.035) Urine Protein 1+ (Negative) H Urine Ketones Negative (Negative) Urine Blood 1+ /uL (Negative) H Urine Nitrite Negative (Negative) Urine Bilirubin Negative (Negative) Urine Urobilinogen Normal mg/dL (Negative) Urine Leukocyte Esterase 2+ /uL (Negative) Urine RBC 102 /hpf (0 - 4) Urine WBC Clumps Present /hpf (None Seen) Urine Microscopic WBC 1366 /HPF (0-5) H Urine Squamous Epithelial Cells Few /hpf (<5) Urine Bacteria Few /hpf (None Seen) H Urine Yeast (Budding) Loaded /hpf (None Seen) Urine Glucose 3+ mg/dL (Normal) H Labs and/or images reviewed: Labs reviewed by me Assessment/Plan Assessment/Plan # Mechanical Fall # T12 Burst fracture # ?[facility] - Consider bis[facility] on discharge - DEXA Scan Outpatient # possible left thumb fracture -left thumb x-ray : Acute 1st distal phalanx fracture. - orthopedic evaluation -pain meds pRN # Possible AMADA on CKD due to VMN -IV fluids -monitor kidney function # Type 2 diabetes mellitus - Continue home medications # Mild asymptomatic hypocalcemia - Monitor calcium levels # Hypomagnesemia - Magnesium supplemented # GERD - Continue Protonix # Dyslipidemia - Continue ezetimibe # Osteoarthritis - Post knee and hip replacement surgeries - Outpatient follow-up with PCP after discharge # Hypothyroidism - Monitor TSH levels Continue current management Continue with pain medication Appreciated orthopedic surgeon input We will give pain medication We will consult spine surgeon per recommendation of orthopedic surgeon Get the physical therapy to help the patient out of bed and ambulate if t olerated. This medical document was created using an electronic medical record system with [id number] direct computerized dictation system. Although this document has been carefully reviewed, there may still be some phonetic and typographical errors. These areas are purely typographical due to imperfections of the software programs, and do not reflect any compromise in the patient's medical care. Plan discussed with: Patient My Orders Orders - MARKO PERRY MD Procedure Category Date Status Time Bladder Scan ORDERS 03/08/25 Transmitted 12:31 Insert Camacho Catheter ALVINA 03/08/25 In Process 14:20 Date of Service: Mar 09, 2025 Billing Provider: MARKO PERRY MD Common Visit Codes: [id number] INP/OBS CARE(HIGH) MARKO PERRY MD Mar 09, 2025 11:29
[2025-03-09] MEDS: ONDANSETRON HCL 4 MG/2 ML VIAL IV PRN (21:47)
[2025-03-10] VITALS (8 sets, daily range): BP systolic 108–146; BP diastolic 62–77; PULSE 80–95; RESP 17–21; TEMP 97.7–98.7; O2SAT 93–99
[2025-03-10 06:41] LABS: Hematocrit 34.0 % (36.0-46.0); Hemoglobin 11.7 g/dL (12.2-16.2); Mean Corpuscular Hemoglobin 29.7 pg (28.0-32.0); Mean Corpuscular Volume 86.7 fL (80.0-100.0); Nucleated Red Blood Cells % 0.0 %
[2025-03-10 06:51] LABS: Calcium 9.2 mg/dL (8.7-10.4); Chloride 102 mmol/L (98-107); Potassium 4.3 mmol/L (3.5-5.1); Sodium 138 mmol/L (136-145)
[2025-03-10 06:52] LABS: Anion Gap 8 (5-15); Carbon Dioxide 28 mmol/L (20-31)
[2025-03-10 06:58] LABS: BUN/Creatinine Ratio 18.0 (10.0-20.0); Blood Urea Nitrogen 22 mg/dL (9-23)
[2025-03-10 06:59] LABS: Glucose 121 mg/dL (74-106)
--- NOTE | 2025-03-10 11:53 | DVHINCON2 ---
Consultation - Surgical Date Seen: Mar 10, 2025 Referring Physician Referring Physician Attending Doctor: Leora Ellis MD s Reason for Consultation Back pain, lumbar status post fall History of Present Illness History of Present Illness History of Present Illness (HPI): Rae Mena is a 79-year-old female with a significant past medical history including diabetes mellitus, chronic kidney disease (CKD), hypothyroidism, dyslipidemia, osteoarthritis, and gastroesophageal reflux disease (GERD). She presented to the hospital following a mechanical fall at home on Wednesday, which occurred when she tripped over a mat and landed on a tile floor, impacting her shoulder. Since the incident, she has been experiencing persistent back pain and left thumb pain. The back pain is described as sharp, continuous, and radiating across the waistline, with an intensity of 8 out of 10. It is aggravated by standing and weight-bearing activities, and alleviated by rest. She also reports back spasms and flank pain, which have made ambulation difficult. Past Medical/Surgical History Past Medical/Surgical History Past Medical History (PMH): diabetes mellitus, chronic kidney disease (CKD), hypothyroidism, dyslipidemia, osteoarthritis, and gastroesophageal reflux disease (GERD) Past Surgical History (PSH): Knee and hip joint replacement surgeries, hardware placement along the left posterior aspect of the sacroiliac joint Family and Social History Family and Social History Family history (FH): Breast cancer in mother at 70 years EtOH: Denies alcohol use Smoking /Vaping: Denies smoking Recreational Drugs: Denies recreational drug use Residence: Lives with Home Medications: Metformin, metoprolol, Gemtesa, Farxiga, glipizide, gabapentin, Zetia, Bentyl Allergies: No known drug allergies PCP: Dr. Graham Specialist relevant to admission: Orthopedic Allergies and medications Allergies: Coded Allergies: No Known Drug Allergy (Verified Allergy, Unknown, 01/22/21) Home Meds Active Scripts Furosemide (Lasix) 40 Mg Tab, 80 MG PO DAILY for 30 Days, #60 TAB 6 Refills Prov:GREENE,CAROLANN Toribio DO 12/07/23 Reported Medications Cranberry Extract (CRANBERRY) 600 Mg Tab, 62467 MG PO DAILY, TAB 12/06/23 Acetaminophen (Tylenol 8 Hour Arthritis) 650 Mg Tab, 850 MG PO BID PRN for PAIN SCALE 1 THRU 6, TAB 12/06/23 Mannose (D-Mannose) 500 Mg Cap, 1000 MG PO DAILY, CAP 12/06/23 Lactobacillus (PROBIOTIC) Cap, 1 CAP PO DAILY, CAP 12/06/23 B-Complex Vitamins (B Complex) Cap, 1 CAP PO DAILY, CAP 12/06/23 Calcium Carbonate-Vitamin D (Calcium 500 + D) +D Tab, 500 MG PO, TAB 12/06/23 Multiple Vitamin (Multivitamins) Tab, 1 TAB PO DAILY, #90 TAB 3 Refills 12/06/23 Dapagliflozin Propanediol (Farxiga) 10 Mg Tab, 1 TAB PO DAILY 12/06/23 Levothyroxine Sodium (Levothyroxine Sodium) 50 Mcg Tab, 1 TAB PO DAILY 12/06/23 Glipizide (Glipizide) 5 Mg Tab, 1 TAB PO BID 12/06/23 Pantoprazole Sodium Sesquihydr (Pantoprazole Sodium Dr) 40 Mg Tab, 20 MG PO DAILY 12/06/23 Metoprolol Tartrate (Lopressor) 25 Mg Tb, 1 TAB PO DAILY 12/06/23 Vibegron (Gemtesa) 75 Mg Tab, 1 TAB PO DAILY 12/06/23 Glucose Blood (Freestyle Lite Test Strip) Lite Lizzeth, 1 STRIP XX TID 12/06/23 Gabapentin (Gabapentin) 600 Mg Tab, 1 TAB PO HS 12/06/23 Gabapentin (Gabapentin) 100 Mg Cap, 200 CAP PO QAM 12/06/23 Cyanocobalamin (B12) 1,000 Mcg Tab, 1000 MCG PO DAILY, TAB 04/08/21 Dicyclomine Hcl (BENTYL CAPSULE) 10 Mg Cp, 10 MG PO BIDP PRN for FOR STOMACH DISTRESS, CAP 01/22/21 Cetirizine Hcl (ZYRTEC ALLERGY) 10 Mg Tab, 10 MG PO DAILYP PRN for FOR ITCHING, TAB 01/22/21 Metoclopramide Hcl (Reglan) 5 Mg Tab, 5 MG PO BIDP PRN for FOR STOMACH DISTRESS, TAB 01/22/21 Metformin Hydrochloride (Metformin Hcl) 500 Mg Tab, 1000 MG PO BID for 30 Days, MG 01/22/21 Review of systems Review of Systems: MSK:Abnormal (Low back pain), NEURO:Normal (No focal neuro deficits) Examination Vital signs imaging: ORDERING PHYSICIAN: EZ JOHNSON LINK ASSEMBLER PROCEDURE(s): MST4 - THORACIC SPINE WITHOUT REASON: acute burst Fracture T12 ORDER NUMBER(s): [id number], ACCESSION NUMBER(s): [id number] MRI THORACIC SPINE WITHOUT INDICATION: acute burst Fracture T12 EXAM DATE: 03/11/2025 08:34 AM COMPARISON: None PROCEDURE: Using a 1.5 Luda scanner, multisequence multiplanar imaging of the thoracic spine was obtained. FINDINGS: There is a compression fracture involving the T12 vertebral body with central loss of height and altered signal intensity. Remaining thoracic vertebral bodies are normal in height. There is diffuse loss of height and signal intensity of the thoracic intervertebral discs. At T6-7 there is a 1 to 2 mm central disc bulge effacing the thecal sac. There is no cord compression The cord is normal in size and signal intensity ending at T12-L1 IMPRESSION: 1. Fracture of the T12 vertebral body without compromise of the central canal or compression of the cord RING PHYSICIAN: JA HARRIS PROCEDURE(s): LS2CT - LS SPINE WO CONTRAST REASON: fall ORDER NUMBER(s): [id number], ACCESSION NUMBER(s): [id number] ADDENDUM ADDENDUM # 1 Initial error in the below report IMPRESSION: 1. Acute superior endplate and inferior endplate deformity with slight posterior inferior endplate retropulsion measuring 2 mm likely compatible with burst fracture of T12. 2. Subsequent superior and inferior endplate 20-30 percent concavity/height loss. ORIGINAL REPORT EXAM: CT LS SPINE WO CONTRAST INDICATION: fall TECHNIQUE: Axial images of the lumbar spine have been obtained along with coronal and sagittal reformatted images. CT scans at this facility use dose modulation, iterative reconstruction, and/or weight based dosing when appropriate to reduce radiation dose to as low as reasonably achievable. COMPARISON: XY CSPINE COMP 5 VIEW on DOS: 09/25/22 FINDINGS: ANATOMY: Five lumbar-type vertebral bodies are present. The most inferior well- formed disc space will be referred to as L5-S1 for purposes of numbering in this report. VERTEBRAL BODIES: Acute superior endplate and inferior endplate deformity with slight posterior inferior endplate retropulsion measuring 2 mm likely compatible with burst fracture of T12. Subsequent superior and inferior endplate 20-30 percent concavity/height loss. SPINAL CANAL: Mild relative suspected spinal narrowing at L3-4 and L4-5 and L1-2 INTERVERTEBRAL DISCS: Multilevel posterior disc osteophyte complexes, incompletely characterized however measuring up to 3-4 mm posteriorly at L3-4 and L4-5 and L1-2. FACETS: Moderate to severe multilevel lower lumbar spine facet arthropathy OTHER: Degenerative change of bilateral sacroiliac joints. Prior hardware placement along the left posterior aspect of the sacroiliac joint. IMPRESSION: 1. Possible longitudinal split tear of the junction of the extra-articular and intra-articular segments of the long head of the biceps tendon perched over the lesser tuberosity. The appearance of thickening of the distal extra-articular segment of the long head of the biceps tendon with slightly disproportionate amount of fluid Vital Signs Date Time Temp Pulse Resp B/P (MAP) Pulse Ox O2 Delivery O2 Flow Rate FiO2 03/10/25 10:00 87 116/70 03/10/25 09:00 97.7 19 97 97.7 03/10/25 08:00 Nasal Cannula* 3 32 Medications Current Medications Medications (Trade) Dose Ordered Sig/David Route PRN Reason Start Time Stop Time Status Last Admin Ondansetron HCl (Zofran) 4 mg Q4HPRN PRN IV NAUSEA / VOMITING 03/09/25 21:30 03/10/25 11:19 Laboratory Labs Test 03/10/25 05:24 03/09/25 23:59 03/08/25 19:00 03/08/25 05:59 Range/Units White Blood Count 4.5 4.4-10.8 10^3/uL Red Blood Count 3.93 L 4.0-5.20 10^6/uL Hemoglobin 11.7 L 12.2-16.2 g/dL Hematocrit 34.0 L 36.0-46.0 % Mean Corpuscular Volume 86.7 80.0-100.0 fL Mean Corpuscular Hemoglobin 29.7 28.0-32.0 pg Mean Corpuscular Hemoglobin Concent 34.3 32.0-36.0 g/dL Red Cell Distribution Width 14.5 H 11.8-14.3 % Platelet Count 241 140-450 10^3/uL Mean Platelet Volume 6.4 L 6.9-10.8 fL Neutrophils (%) (Auto) 72.5 37.0-80.0 % Lymphocytes (%) (Auto) 18.3 10.0-50.0 % Monocytes (%) (Auto) 6.8 0.0-12.0 % Eosinophils (%) (Auto) 2.0 0.0-7.0 % Basophils (%) (Auto) 0.4 0.0-2.0 % Neutrophils # (Auto) 3.3 1.6-8.6 10 ^3/uL Lymphocytes # (Auto) 0.8 0.4-5.4 10 ^3/uL Monocytes # (Auto) 0.3 0-1.3 10 ^3/uL Eosinophils # (Auto) 0.1 0-0.8 10 ^3/uL Basophils # (Auto) 0 0-0.2 10 ^3/uL Nucleated Red Blood Cells 0.0 % Sodium Level 138 136-145 mmol/L Potassium Level 4.3 3.5-5.1 mmol/L Chloride Level 102 98-107 mmol/L Carbon Dioxide Level 28 20-31 mmol/L Anion Gap 8 5-15 Blood Urea Nitrogen 22 9-23 mg/dL Creatinine 1.22 H 0.550-1.02 mg/dL Glomerular Filtration Rate Calc 45 >90 mL/min BUN/Creatinine Ratio 18.0 10.0-20.0 Serum Glucose 121 H 74-106 mg/dL Calcium Level 9.2 8.7-10.4 mg/dL POC Glucose 142 H 70-106 mg/dl Urine Color Colorless Yellow Urine Clarity Ex.turbid Clear Urine pH 6.0 5.0-9.0 Urine Specific [place] 1.009 1.001-1.035 Urine Protein 1+ H Negative Urine Ketones Negative Negative Urine Blood 1+ H Negative /uL Urine Nitrite Negative Negative Urine Bilirubin Negative Negative Urine Urobilinogen Normal Negative mg/dL Urine Leukocyte Esterase 2+ Negative /uL Urine RBC 102 0 - 4 /hpf Urine WBC Clumps Present None Seen /hpf Urine Microscopic WBC 1366 H 0-5 /HPF Urine Squamous Epithelial Cells Few <5 /hpf Urine Bacteria Few H None Seen /hpf Urine Yeast (Budding) Loaded None Seen /hpf Urine Glucose 3+ H Normal mg/dL Differential Total Cells Counted 100.0 100 Neutrophils % (Manual) 69 37.0-80.0 Band Neutrophils % (Manual) 5 Lymphocytes % (Manual) 18 10.0-50.0 Monocytes % (Manual) 5 0-12 Eosinophils % (Manual) 2 0-7 Basophils % (Manual) 0 0.0-2.0 Metamyelocytes % (manual) 0 Myelocytes % (Manual) 1 Promyelocytes % (Manual) 0 Blast Cells % (Manual) 0 Reactive Lymphocytes 0 Platelet Estimate Adequate Test 03/07/25 05:50 03/06/25 16:45 Range/Units Prothrombin Time 11.2 9.3-11.8 sec Prothrombin Time INR 1.06 0.9-1.15 Activated Partial Thromboplast Time 31.4 24.5-34.5 SEC Total Bilirubin 0.5 0.2-1.0 mg/dL Aspartate Amino Transferase (AST) 17 13-40 U/L Alanine Aminotransferase (ALT) 15 7-40 U/L Alkaline Phosphatase 51 46-116 U/L Total Protein 6.7 5.7-8.2 g/dL Albumin 3.9 3.2-4.8 g/dL Magnesium Level 1.3 L 1.6-2.6 mg/dL Troponin I High Sensitivity 5 </=34 ng/L Examination: GENERAL:Normal, HEENT:Normal, NECK:Normal, LUNGS:Normal, CVS:Normal, ABDOMEN:Normal, MSK:Abnormal, SKIN:Normal, NEURO:Normal, :Normal Problem List/Assessment/Plan Problems: (1) Burst fracture of twelfth thoracic vertebra Assessment and Plan Acute superior endplate and inferior endplate deformity with slight posterior inferior endplate retropulsion measuring 2 mm likely compatible with burst frac ture of T12. Subsequent superior and inferior endplate 20-30 percent concavity/height loss. MRI finding: Fracture of the T12 vertebral body without compromise of the central canal or compression of the cord Continue supportive care per admitting team's discretion No need for spine surgery- conservative management with bracing TLSO brace for mobilization -ordered by ortho Physical therapy evaluation with TLSO brace in place if the patient has excruciating pain with standing Pain management, oral analgesics and muscle relaxers if the patient is complaining of muscle spasms There are no barriers to safe discharge from a spin surgery perspective, if patient is able to ambulate safely for discharge per physical therapy assessment and evaluation TLSO for mobilization Follow up as an outpatient with PCP Repeat CT or MRI in 8-12 weeks for assessment of healing If the fractures nonhealing she will need follow up with spine surgery, referral from PCP Call with guanaco Johnson [facility] Orthopaedic Spine Surgery nurse practitioner For Dr Viki Goode Patient was examined, chart reviewed, labs evaluated, and diagnostic studies and findings analyzed. Case was discussed with Dr. Robb Goode who formulated the plan of care. This medical document was created using an electronic medical record system with [employer] dictation system. Although this document has been carefully reviewed, there might still be some phonetic and typographical errors. These areas are purely typographical due to imperfections of the software programs, and do not reflect any compromise in the patient's medical care. Plan discussed with Plan discussed with: Patient, Other (Bedside RN) Visit Coding Surgery Date of Service if different f: Mar 10, 2025 Billing Provider: EZ JOHNSON NP Surgery Visit Codes: [id number] - INP CONSULT <55 MIN EZ JOHNSON NP Mar 10, 2025 11:53
--- NOTE | 2025-03-10 15:14 | DVHPN2 ---
Subjective The patient seen and examined at bedside. Patient has lot of pain. Reviewed: Care Plan, H&P, Labs, Medications, Previous Orders, Radiology Changes from previous H/P or p: No Changes Objective Vitals Vital Signs Date Time Temp Pulse Resp B/P (MAP) Pulse Ox O2 Delivery O2 Flow Rate FiO2 03/10/25 12:33 97.8 85 21 146/77 (100) 97 97.8 03/10/25 08:00 Nasal Cannula* 3 32 Intake/Output Intake and Output 03/10/25 07:00 Intake Total 890 ml Output Total 1425 ml Balance -535 ml Intake Oral 890 ml Output Urine Total 1425 ml General Appearance: Alert, Cooperative, mild distress HEENT: Atraumatic, PERRLA, EOMI, Mucous membr. moist/pink Neck: Supple Lungs: Clear to auscultation, Normal air movement Cardiovascular: Regular rate, Normal S1, Normal S2, No murmurs, Gallops, Rubs Abdomen: Normal bowel sounds, Soft, No tenderness Neuro: Cranial nerves 3-12 NL Psych/Mental Status: Mental status NL Medications Current Medications Medications Dose Ordered Sig/David Route Start Time Stop Time Status Last Admin Dose Admin Acetaminophen/ Hydrocodone Bitart 1 tab Q4HP PRN PO 03/07/25 00:00 03/10/25 10:32 1 TAB Docusate Sodium 100 mg BIDPRN PRN PO 03/07/25 00:00 03/10/25 10:00 100 MG Acetaminophen 650 mg Q6HP PRN PO 03/07/25 00:00 Metoprolol Succinate 25 mg DAILY PO 03/07/25 10:00 03/10/25 10:00 25 MG Gabapentin 200 mg DAILY PO 03/07/25 10:00 03/10/25 09:59 200 MG EZETIMIBE 10 mg DAILY PO 03/07/25 10:00 03/10/25 10:00 10 MG Pantoprazole Sodium 20 mg DAILY PO 03/07/25 10:00 03/10/25 10:00 20 MG Enoxaparin Sodium 30 mg DAILY IV 03/07/25 10:00 03/10/25 09:59 30 MG Morphine Sulfate 2 mg Q4HPRN PRN IV 03/07/25 16:45 03/09/25 15:35 2 MG Diagnostic Test (Pha) 1 strip Q6HR 03/08/25 06:00 03/10/25 11:35 1 STRIP Insulin Human Regular Q6HR SC 03/08/25 06:00 03/10/25 11:36 2 UNITS Dextrose 50 ml UD PRN IV 03/08/25 04:45 Gabapentin 600 mg DAILY@2000 PO 03/08/25 20:00 03/08/25 20:00 600 MG Ondansetron HCl 4 mg Q4HPRN PRN IV 03/09/25 21:30 03/10/25 11:19 4 MG Lactulose 30 ml BIDPRN PRN PO 03/10/25 13:30 Laboratory Results Laboratory Tests 03/10/25 05:24 Chemistry Test 03/10/25 05:24 Calcium Level 9.2 mg/dL (8.7-10.4) Urinalysis Test 03/08/25 19:00 Urine Color Colorless (Yellow) Urine Clarity Ex.turbid (Clear) Urine pH 6.0 (5.0-9.0) Urine Specific [place] 1.009 (1.001-1.035) Urine Protein 1+ (Negative) H Urine Ketones Negative (Negative) Urine Blood 1+ /uL (Negative) H Urine Nitrite Negative (Negative) Urine Bilirubin Negative (Negative) Urine Urobilinogen Normal mg/dL (Negative) Urine Leukocyte Esterase 2+ /uL (Negative) Urine RBC 102 /hpf (0 - 4) Urine WBC Clumps Present /hpf (None Seen) Urine Microscopic WBC 1366 /HPF (0-5) H Urine Squamous Epithelial Cells Few /hpf (<5) Urine Bacteria Few /hpf (None Seen) H Urine Yeast (Budding) Loaded /hpf (None Seen) Urine Glucose 3+ mg/dL (Normal) H Labs and/or images reviewed: Labs reviewed by me Assessment/Plan Assessment/Plan # Mechanical Fall # T12 Burst fracture # ?Osteoporosis - [facility] - Consider bisphosphonate on discharge - DEXA Scan Outpatient # possible left thumb fracture -left thumb x-ray : Acute 1st distal phalanx fracture. - orthopedic evaluation -pain meds pRN # Possible AMADA on CKD due to VMN -IV fluids -monitor kidney function # Type 2 diabetes mellitus - Continue home medications # Mild asymptomatic hypocalcemia - Monitor calcium levels # Hypomagnesemia - Magnesium supplemented # GERD - Continue Protonix # Dyslipidemia - Continue ezetimibe # Osteoarthritis - Post knee and hip replacement surgeries - Outpatient follow-up with PCP after discharge # Hypothyroidism - Monitor TSH levels Continue current management Continue with pain medication Appreciated orthopedic surgeon input We will give pain medication We will consult spine surgeon per recommendation of orthopedic surgeon Get the physical therapy to help the patient out of bed and ambulate if t olerated. 03/10: Continuing current management. Waiting for the right size of TLSO. Continuing physical therapy. Continuing with pain medication. Encouraged the patient to work with physical therapist and using the brace. Lactulose PRN for constipation. Discharge planning. This medical document was created using an electronic medical record system with [employer] direct computerized dictation system. Although this document has been carefully reviewed, there may still be some phonetic and typographical errors. These areas are purely typographical due to imperfections of the software programs, and do not reflect any compromise in the patient's medical care. Plan discussed with: Patient My Orders Orders - MARKO PERRY MD Procedure Category Date Status Time Lactulose Oral PHA 03/10/25 In Process 13:30 Date of Service: Mar 10, 2025 Billing Provider: MARKO PERRY MD Common Visit Codes: [id number] INP/OBS CARE(HIGH) MARKO PERRY MD Mar 10, 2025 15:14
[2025-03-11] VITALS (7 sets, daily range): BP systolic 101–116; BP diastolic 60–69; PULSE 77–95; RESP 18–20; TEMP 96.3–97.9; O2SAT 92–98
[2025-03-11] MEDS: LACTULOSE 20Gm/30ML SOLN PO PRN (01:16)
[2025-03-11 07:35] LABS: Hematocrit 40.5 % (36.0-46.0); Hemoglobin 13.7 g/dL (12.2-16.2); Mean Corpuscular Hemoglobin 29.9 pg (28.0-32.0); Mean Corpuscular Volume 88.1 fL (80.0-100.0); Nucleated Red Blood Cells % 0.2 %
[2025-03-11 07:47] LABS: Anion Gap 13 (5-15); Carbon Dioxide 26 mmol/L (20-31); Chloride 99 mmol/L (98-107); Potassium 4.1 mmol/L (3.5-5.1); Sodium 138 mmol/L (136-145)
[2025-03-11 07:48] LABS: Calcium 9.6 mg/dL (8.7-10.4)
[2025-03-11 07:53] LABS: BUN/Creatinine Ratio 12.4 (10.0-20.0); Blood Urea Nitrogen 17 mg/dL (9-23)
[2025-03-11 08:01] LABS: Glucose 132 mg/dL (74-106)
--- NOTE | 2025-03-11 09:15 | DVH ---
MRI THORACIC SPINE WITHOUT INDICATION: acute burst Fracture T12 EXAM DATE: 03/11/2025 08:34 AM COMPARISON: None PROCEDURE: Using a 1.5 Luda scanner, multisequence multiplanar imaging of the thoracic spine was obt ained. FINDINGS: There is a compression fracture involving the T12 vertebral body with central loss of heigh t and altered signal intensity. Remaining thoracic vertebral bodies are normal in height. There is diffuse loss of height and signal intensity of the thoracic intervertebral discs. At T6-7 th ere is a 1 to 2 mm central disc bulge effacing the thecal sac. There is no cord compression The cord is normal in size and signal intensity ending at T12-L1 IMPRESSION: 1. Fracture of the T12 vertebral body without compromise of the central canal or compression of the c ord
[2025-03-11] MEDS: BISACODYL 5 MG EC TAB PO PRN (15:44)
[2025-03-11] MEDS: BISACODYL 5 MG EC TAB PO ONE (15:44)
--- NOTE | 2025-03-11 23:05 | DVHPN2 ---
Subjective The patient seen and examined at bedside. Patient has lot of pain today. Cannot sit up today. Yesterday she was walking around with PT . Reviewed: Care Plan, H&P, Labs, Medications, Previous Orders, Radiology Changes from previous H/P or p: No Changes Objective Vitals Vital Signs Date Time Temp Pulse Resp B/P (MAP) Pulse Ox O2 Delivery O2 Flow Rate FiO2 03/11/25 17:00 96.3 89 20 116/60 (78) 92 96.3 03/11/25 08:00 Nasal Cannula* 2 28 Intake/Output Intake and Output 03/11/25 07:00 Intake Total 1560 ml Output Total 300 ml Balance 1260 ml Intake Oral 1560 ml Output Urine Total 300 ml # Voids 3 General Appearance: Alert, Cooperative, mild distress HEENT: Atraumatic, PERRLA, EOMI, Mucous membr. moist/pink Neck: Supple Lungs: Clear to auscultation, Normal air movement Cardiovascular: Regular rate, Normal S1, Normal S2, No murmurs, Gallops, Rubs Abdomen: Normal bowel sounds, Soft, No tenderness Neuro: Cranial nerves 3-12 NL Psych/Mental Status: Mental status NL Medications Current Medications Medications Dose Ordered Sig/David Route Start Time Stop Time Status Last Admin Dose Admin Acetaminophen/ Hydrocodone Bitart 1 tab Q4HP PRN PO 03/07/25 00:00 03/11/25 19:45 1 TAB Docusate Sodium 100 mg BIDPRN PRN PO 03/07/25 00:00 03/11/25 09:38 100 MG Acetaminophen 650 mg Q6HP PRN PO 03/07/25 00:00 Metoprolol Succinate 25 mg DAILY PO 03/07/25 10:00 03/11/25 09:40 25 MG Gabapentin 200 mg DAILY PO 03/07/25 10:00 03/11/25 09:38 200 MG EZETIMIBE 10 mg DAILY PO 03/07/25 10:00 03/11/25 09:38 10 MG Pantoprazole Sodium 20 mg DAILY PO 03/07/25 10:00 03/11/25 09:38 20 MG Enoxaparin Sodium 30 mg DAILY IV 03/07/25 10:00 03/11/25 09:37 30 MG Morphine Sulfate 2 mg Q4HPRN PRN IV 03/07/25 16:45 03/09/25 15:35 2 MG Diagnostic Test (Pha) 1 strip Q6HR 03/08/25 06:00 03/11/25 17:13 1 STRIP Insulin Human Regular Q6HR SC 03/08/25 06:00 03/11/25 17:38 2 UNITS Dextrose 50 ml UD PRN IV 03/08/25 04:45 Gabapentin 600 mg DAILY@2000 PO 03/08/25 20:00 03/11/25 19:44 600 MG Ondansetron HCl 4 mg Q4HPRN PRN IV 03/09/25 21:30 03/10/25 11:19 4 MG Lactulose 30 ml BIDPRN PRN PO 03/10/25 13:30 03/11/25 01:16 30 ML Bisacodyl 10 mg BID PRN PO 03/11/25 14:45 03/11/25 15:44 10 MG Laboratory Results Laboratory Tests 03/11/25 06:46 Chemistry Test 03/11/25 06:46 Calcium Level 9.6 mg/dL (8.7-10.4) Urinalysis Test 03/08/25 19:00 Urine Color Colorless (Yellow) Urine Clarity Ex.turbid (Clear) Urine pH 6.0 (5.0-9.0) Urine Specific [place] 1.009 (1.001-1.035) Urine Protein 1+ (Negative) H Urine Ketones Negative (Negative) Urine Blood 1+ /uL (Negative) H Urine Nitrite Negative (Negative) Urine Bilirubin Negative (Negative) Urine Urobilinogen Normal mg/dL (Negative) Urine Leukocyte Esterase 2+ /uL (Negative) Urine RBC 102 /hpf (0 - 4) Urine WBC Clumps Present /hpf (None Seen) Urine Microscopic WBC 1366 /HPF (0-5) H Urine Squamous Epithelial Cells Few /hpf (<5) Urine Bacteria Few /hpf (None Seen) H Urine Yeast (Budding) Loaded /hpf (None Seen) Urine Glucose 3+ mg/dL (Normal) H Labs and/or images reviewed: Labs reviewed by me Assessment/Plan Assessment/Plan # Mechanical Fall # T12 Burst fracture # ?Osteoporosis - Physical therapy consult - [facility] for orthopedic evaluation - Consider bisphosphonate on discharge - DEXA Scan Outpatient # possible left thumb fracture -left thumb x-ray : Acute 1st distal phalanx fracture. - orthopedic evaluation -pain meds pRN # Possible AMADA on CKD due to VMN -IV fluids -monitor kidney function # Type 2 diabetes mellitus - Continue home medications # Mild asymptomatic hypocalcemia - Monitor calcium levels # Hypomagnesemia - Magnesium supplemented # GERD - Continue Protonix # Dyslipidemia - Continue ezetimibe # Osteoarthritis - Post knee and hip replacement surgeries - Outpatient follow-up with PCP after discharge # Hypothyroidism - Monitor TSH levels Continue current management Continue with pain medication Appreciated orthopedic surgeon input We will give pain medication We will consult spine surgeon per recommendation of orthopedic surgeon Get the physical therapy to help the patient out of bed and ambulate if t olerated. 03/10: Continuing current management. Waiting for the right size of TLSO. Continuing physical therapy. Continuing with pain medication. Encouraged the patient to work with physical therapist and using the brace. Lactulose PRN for constipation. Discharge planning. 03/11: continue current management. Patient has lots of pain today. No PT today. Will retry again. Continue pain meds. This medical document was created using an electronic medical record system with [employer] direct computerized dictation system. Although this document has been carefully reviewed, there may still be some phonetic and typographical errors. These areas are purely typographical due to imperfections of the software programs, and do not reflect any compromise in the patient's medical care. Plan discussed with: Patient My Orders Orders - MARKO PERRY MD Procedure Category Date Status Time Bisacodyl Ec Tablet PHA 03/11/25 In Process (Dulcolax Ec Tablet) 14:45 Date of Service: Mar 11, 2025 Billing Provider: MARKO PERRY MD Common Visit Codes: [id number] INP/OBS CARE(HIGH) MARKO PERRY MD Mar 11, 2025 23:05
[2025-03-12] VITALS (8 sets, daily range): BP systolic 113–132; BP diastolic 69–84; PULSE 82–95; RESP 16–19; TEMP 97.2–98.4; O2SAT 90–97
[2025-03-12 06:31] LABS: Hematocrit 34.1 % (36.0-46.0); Hemoglobin 11.9 g/dL (12.2-16.2); Mean Corpuscular Hemoglobin 30.0 pg (28.0-32.0); Mean Corpuscular Volume 85.9 fL (80.0-100.0); Nucleated Red Blood Cells % 0.1 %
[2025-03-12 06:38] LABS: Chloride 101 mmol/L (98-107); Potassium 4.0 mmol/L (3.5-5.1); Sodium 140 mmol/L (136-145)
[2025-03-12 06:39] LABS: Anion Gap 11 (5-15); Carbon Dioxide 28 mmol/L (20-31)
[2025-03-12 06:40] LABS: Calcium 9.0 mg/dL (8.7-10.4)
[2025-03-12 06:44] LABS: BUN/Creatinine Ratio 14.7 (10.0-20.0); Blood Urea Nitrogen 17 mg/dL (9-23)
[2025-03-12 06:50] LABS: Glucose 141 mg/dL (74-106)
--- NOTE | 2025-03-12 11:09 | DVHPN2 ---
Subjective The patient seen and examined at bedside. Patient has lot of pain today. Cannot sit up today. Yesterday she was walking around with PT . Reviewed: Care Plan, H&P, Labs, Medications, Previous Orders, Radiology Objective Vitals Vital Signs Date Time Temp Pulse Resp B/P (MAP) Pulse Ox O2 Delivery O2 Flow Rate FiO2 03/12/25 09:00 97.6 84 16 120/75 (90) 94 97.6 03/12/25 08:00 Nasal Cannula* 2 28 Intake/Output Intake and Output 03/12/25 07:00 Intake Total 1400 ml Balance 1400 ml Intake Oral 1400 ml # Voids 5 General Appearance: Alert, Cooperative, mild distress HEENT: Atraumatic, PERRLA, EOMI, Mucous membr. moist/pink Neck: Supple Lungs: Clear to auscultation, Normal air movement Cardiovascular: Regular rate, Normal S1, Normal S2, No murmurs, Gallops, Rubs Abdomen: Normal bowel sounds, Soft, No tenderness Neuro: Cranial nerves 3-12 NL Psych/Mental Status: Mental status NL Medications Current Medications Medications Dose Ordered Sig/David Route Start Time Stop Time Status Last Admin Dose Admin Acetaminophen/ Hydrocodone Bitart 1 tab Q4HP PRN PO 03/07/25 00:00 03/12/25 05:27 1 TAB Docusate Sodium 100 mg BIDPRN PRN PO 03/07/25 00:00 03/12/25 08:54 100 MG Acetaminophen 650 mg Q6HP PRN PO 03/07/25 00:00 Metoprolol Succinate 25 mg DAILY PO 03/07/25 10:00 03/12/25 08:54 25 MG Gabapentin 200 mg DAILY PO 03/07/25 10:00 03/12/25 08:53 200 MG EZETIMIBE 10 mg DAILY PO 03/07/25 10:00 03/12/25 08:53 10 MG Pantoprazole Sodium 20 mg DAILY PO 03/07/25 10:00 03/12/25 08:53 20 MG Enoxaparin Sodium 30 mg DAILY IV 03/07/25 10:00 03/12/25 08:53 30 MG Morphine Sulfate 2 mg Q4HPRN PRN IV 03/07/25 16:45 03/09/25 15:35 2 MG Diagnostic Test (Pha) 1 strip Q6HR 03/08/25 06:00 03/12/25 05:20 1 STRIP Insulin Human Regular Q6HR SC 03/08/25 06:00 03/11/25 17:38 2 UNITS Dextrose 50 ml UD PRN IV 03/08/25 04:45 Gabapentin 600 mg DAILY@2000 PO 03/08/25 20:00 03/11/25 19:44 600 MG Ondansetron HCl 4 mg Q4HPRN PRN IV 03/09/25 21:30 03/10/25 11:19 4 MG Lactulose 30 ml BIDPRN PRN PO 03/10/25 13:30 03/12/25 05:24 30 ML Bisacodyl 10 mg BID PRN PO 03/11/25 14:45 03/11/25 15:44 10 MG Laboratory Results Laboratory Tests 03/12/25 06:00 Chemistry Test 03/12/25 06:00 Calcium Level 9.0 mg/dL (8.7-10.4) Urinalysis Test 03/08/25 19:00 Urine Color Colorless (Yellow) Urine Clarity Ex.turbid (Clear) Urine pH 6.0 (5.0-9.0) Urine Specific [place] 1.009 (1.001-1.035) Urine Protein 1+ (Negative) H Urine Ketones Negative (Negative) Urine Blood 1+ /uL (Negative) H Urine Nitrite Negative (Negative) Urine Bilirubin Negative (Negative) Urine Urobilinogen Normal mg/dL (Negative) Urine Leukocyte Esterase 2+ /uL (Negative) Urine RBC 102 /hpf (0 - 4) Urine WBC Clumps Present /hpf (None Seen) Urine Microscopic WBC 1366 /HPF (0-5) H Urine Squamous Epithelial Cells Few /hpf (<5) Urine Bacteria Few /hpf (None Seen) H Urine Yeast (Budding) Loaded /hpf (None Seen) Urine Glucose 3+ mg/dL (Normal) H Assessment/Plan Assessment/Plan # Mechanical Fall # T12 Burst fracture # ?Osteoporosis - Physical therapy consult - [place] for orthopedic evaluation - Consider bisphosphonate on discharge - DEXA Scan Outpatient # possible left thumb fracture -left thumb x-ray : Acute 1st distal phalanx fracture. - orthopedic evaluation -pain meds pRN # Possible AMADA on CKD due to VMN -IV fluids -monitor kidney function # Type 2 diabetes mellitus - Continue home medications # Mild asymptomatic hypocalcemia - Monitor calcium levels # Hypomagnesemia - Magnesium supplemented # GERD - Continue Protonix # Dyslipidemia - Continue ezetimibe # Osteoarthritis - Post knee and hip replacement surgeries - Outpatient follow-up with PCP after discharge # Hypothyroidism - Monitor TSH levels Continue current management Continue with pain medication Appreciated orthopedic surgeon input We will give pain medication We will consult spine surgeon per recommendation of orthopedic surgeon Get the physical therapy to help the patient out of bed and ambulate if t olerated. 03/10: Continuing current management. Waiting for the right size of TLSO. Continuing physical therapy. Continuing with pain medication. Encouraged the patient to work with physical therapist and using the brace. Lactulose PRN for constipation. Discharge planning. 03/11: continue current management. Patient has lots of pain today. No PT today. Will retry again. Continue pain meds. This medical document was created using an electronic medical record system with [employer] direct computerized dictation system. Although this document has been carefully reviewed, there may still be some phonetic and typographical errors. These areas are purely typographical due to imperfections of the software programs, and do not reflect any compromise in the patient's medical care. My Orders Orders - MARKO PERRY MD Procedure Category Date Status Time Bisacodyl Ec Tablet PHA 03/11/25 In Process (Dulcolax Ec Tablet) 14:45 MARKO PERRY MD Mar 12, 2025 11:09
--- NOTE | 2025-03-12 22:27 | DVHDS2 ---
Discharge Summary Date of Admission Mar 06, 2025 at 23:48 Date of Discharge: Mar 12, 2025 Admitting Diagnosis # Mechanical Fall # T12 Burst fracture # ?Osteoporosis # Acute 1st distal phalanx fracture # Possible AMADA on CKD due to VMN # Type 2 diabetes mellitus # Mild asymptomatic hypocalcemia # Hypomagnesemia # GERD # Dyslipidemia # Osteoarthritis # Hypothyroidism Labs/Diagnostic Data: Laboratory Results Test 03/12/25 17:06 03/12/25 06:00 03/08/25 19:00 03/08/25 05:59 POC Glucose 145 mg/dl (70-106) White Blood Count 5.4 10^3/uL (4.4-10.8) Red Blood Count 3.97 10^6/uL (4.0-5.20) Hemoglobin 11.9 g/dL (12.2-16.2) Hematocrit 34.1 % (36.0-46.0) Mean Corpuscular Volume 85.9 fL (80.0-100.0) Mean Corpuscular Hemoglobin 30.0 pg (28.0-32.0) Mean Corpuscular Hemoglobin Concent 34.9 g/dL (32.0-36.0) Red Cell Distribution Width 14.7 % (11.8-14.3) Platelet Count 288 10^3/uL (140-450) Mean Platelet Volume 6.2 fL (6.9-10.8) Neutrophils (%) (Auto) 67.2 % (37.0-80.0) Lymphocytes (%) (Auto) 20.9 % (10.0-50.0) Monocytes (%) (Auto) 8.4 % (0.0-12.0) Eosinophils (%) (Auto) 3.0 % (0.0-7.0) Basophils (%) (Auto) 0.5 % (0.0-2.0) Neutrophils # (Auto) 3.6 10 ^3/uL (1.6-8.6) Lymphocytes # (Auto) 1.1 10 ^3/uL (0.4-5.4) Monocytes # (Auto) 0.5 10 ^3/uL (0-1.3) Eosinophils # (Auto) 0.2 10 ^3/uL (0-0.8) Basophils # (Auto) 0 10 ^3/uL (0-0.2) Nucleated Red Blood Cells 0.1 % Sodium Level 140 mmol/L (136-145) Potassium Level 4.0 mmol/L (3.5-5.1) Chloride Level 101 mmol/L (98-107) Carbon Dioxide Level 28 mmol/L (20-31) Anion Gap 11 (5-15) Blood Urea Nitrogen 17 mg/dL (9-23) Creatinine 1.16 mg/dL (0.550-1.02) Glomerular Filtration Rate Calc 48 mL/min (>90) BUN/Creatinine Ratio 14.7 (10.0-20.0) Serum Glucose 141 mg/dL (74-106) Calcium Level 9.0 mg/dL (8.7-10.4) Urine Color Colorless (Yellow) Urine Clarity Ex.turbid (Clear) Urine pH 6.0 (5.0-9.0) Urine Specific [place] 1.009 (1.001-1.035) Urine Protein 1+ (Negative) Urine Ketones Negative (Negative) Urine Blood 1+ /uL (Negative) Urine Nitrite Negative (Negative) Urine Bilirubin Negative (Negative) Urine Urobilinogen Normal mg/dL (Negative) Urine Leukocyte Esterase 2+ /uL (Negative) Urine RBC 102 /hpf (0 - 4) Urine WBC Clumps Present /hpf (None Seen) Urine Microscopic WBC 1366 /HPF (0-5) Urine Squamous Epithelial Cells Few /hpf (<5) Urine Bacteria Few /hpf (None Seen) Urine Yeast (Budding) Loaded /hpf (None Seen) Urine Glucose 3+ mg/dL (Normal) Differential Total Cells Counted 100.0 (100) Neutrophils % (Manual) 69 (37.0-80.0) Band Neutrophils % (Manual) 5 Lymphocytes % (Manual) 18 (10.0-50.0) Monocytes % (Manual) 5 (0-12) Eosinophils % (Manual) 2 (0-7) Basophils % (Manual) 0 (0.0-2.0) Metamyelocytes % (manual) 0 Myelocytes % (Manual) 1 Promyelocytes % (Manual) 0 Blast Cells % (Manual) 0 Reactive Lymphocytes 0 Platelet Estimate Adequate Test 03/07/25 05:50 03/06/25 16:45 Prothrombin Time 11.2 sec (9.3-11.8) Prothrombin Time INR 1.06 (0.9-1.15) Activated Partial Thromboplast Time 31.4 SEC (24.5-34.5) Total Bilirubin 0.5 mg/dL (0.2-1.0) Aspartate Amino Transferase (AST) 17 U/L (13-40) Alanine Aminotransferase (ALT) 15 U/L (7-40) Alkaline Phosphatase 51 U/L (46-116) Total Protein 6.7 g/dL (5.7-8.2) Albumin 3.9 g/dL (3.2-4.8) Magnesium Level 1.3 mg/dL (1.6-2.6) Troponin I High Sensitivity 5 ng/L (</=34) Other Laboratory Tests 03/12/25 06:00 Brief Hx & Hospital Course: A 75 years old female with past medical history of diabetes, chronic kidney disease, hypothyroidism, dyslipidemia, osteoarthritis and GERD came to emergency department because she fell. The patient said she tripped over a mat and land on a tile floor. She hit her shoulder really hard and started having severe back pain and left thumb pain. The back pain is sharp, continuously, radiating across the waistline. 8/10. It is aggravated by standing and weight-bearing activity and alleviated by rest. She also reports back spasms and flank pain, which have made ambulation difficult. The patient was found to have : Acute 1st distal phalanx fracture. The patient also was found to have:Fracture of the T12 vertebral body without compromise of the central canal or compression of the cord. Orthopedic surgeon was consulted. Recommend a sling. Spine surgeon also was consulted and recommend to with TLSO brace when ambulate. Pain control. If the symptom is not improved she needs to see the spine surgeon as outpatient 8-12 weeks for further management such as surgery if needed. The patient was on IV pain medication and [place] for pain control. The patient unable to care for herself at home. The patient also required a lot of physical therapy. The patient had worked with physical therapy in the hospital but requiring more physical therapy so I am going to discharge her to [facility] for more physical therapy. Activity as tolerated. Diet per home diet. Recommend low-salt low-cholesterol carb controlled diet. The patient will be discharged today to [facility]. Physical exam HEENT: Normocephalic atraumatic pupils equal react to light and accommodation. Extraocular muscles intact, conjunctiva pink, oropharynx moist, no thrush, no exudate. Lymphatic: No lymphadenopathy Cardiovascular exam: S1, S2 was heard. No murmurs, rubs, gallops Lung: Clear on auscultation bilaterally, no wheeze, rale, rhonchi. GI: Abdominal soft, nondistended, nontenderness, positive bowel sounds. Extremity: No crepitus, cyanosis, edema. Pedal pulses present bilateral. Full range of motion. Skin: Normal turgor, no rash. Psych: Alert, oriented x3. Neurology: No focal deficits, cranial nerve II to XII grossly intact. This medical document was created using an electronic medical record system with [employer] direct computerized dictation system. Although this document has been carefully reviewed, there may still be some phonetic and typographical errors. These areas are purely typographical due to imperfections of the software programs, and do not reflect any compromise in the patient's medical care. Condition at Discharge: Stable Final Diagnosis/Problems List # Mechanical Fall # T12 Burst fracture # ?Osteoporosis # Acute 1st distal phalanx fracture # Possible AMADA on CKD due to VMN # Type 2 diabetes mellitus # Mild asymptomatic hypocalcemia # Hypomagnesemia # GERD # Dyslipidemia # Osteoarthritis # Hypothyroidism Discharge Disposition: Nursing Home Facility Discharge Instruct/Medications Diet: Cardiac 2g Na,low cholest Activity: See Comment Activity comment: TLSO while mobilized Follow Up/Referral: pcp 1-[address] Goode in 8-12 weeks orthopedic surgeon per schedule Medications: see med list Scheduled B-Complex Vitamins (B Complex), 1 CAP PO DAILY, (Reported) Cranberry Extract (Cranberry), 30,000 MG PO DAILY, (Reported) Cyanocobalamin (B12), 1,000 MCG PO DAILY, (Reported) Dapagliflozin Propanediol (Farxiga), 1 TAB PO DAILY, (Reported) Furosemide (Lasix), 80 MG PO DAILY Gabapentin (Gabapentin), 200 CAP PO QAM, (Reported) Gabapentin (Gabapentin), 1 TAB PO HS, (Reported) Glipizide (Glipizide), 1 TAB PO BID, (Reported) Glucose Blood (Freestyle Lite Test Strip), 1 STRIP XX TID, (Reported) Lactobacillus (Probiotic), 1 CAP PO DAILY, (Reported) Levothyroxine Sodium (Levothyroxine Sodium), 1 TAB PO DAILY, (Reported) Mannose (D-Mannose), 1,000 MG PO DAILY, (Reported) Metformin Hydrochloride (Metformin Hcl), 1,000 MG PO BID, (Reported) Metoprolol Tartrate (Lopressor), 1 TAB PO DAILY, (Reported) Multiple Vitamin (Multivitamins), 1 TAB PO DAILY, (Reported) Pantoprazole Sodium Sesquihydr (Pantoprazole Sodium Dr), 20 MG PO DAILY, (Reported) Vibegron (Gemtesa), 1 TAB PO DAILY, (Reported) Scheduled PRN Acetaminophen (Tylenol 8 Hour Arthritis), 850 MG PO BID PRN for PAIN SCALE 1 THRU 6, (Reported) Cetirizine Hcl (Zyrtec Allergy), 10 MG PO DAILYP PRN for FOR ITCHING, (Reported) Dicyclomine Hcl (Bentyl Capsule), 10 MG PO BIDP PRN for FOR STOMACH DISTRESS, (Reported) Metoclopramide Hcl (Reglan), 5 MG PO BIDP PRN for FOR STOMACH DISTRESS, (Reported) Miscellaneous Medications Calcium Carbonate-Vitamin D (Calcium 500 + D), 500 MG PO, (Reported) Discharge Statement: "Patient was advised to return to the ER or call 911 if any headaches, dizziness, shortness of breath, chest pain, abdominal pain, bleeding, fevers, or worsening of medical condition. Patient was counseled about treatment plan, medications, possible side effects, patientverbalized understanding. All questions were answered to the best of my ability. This discharge took greater then 30 minutes in planning, reviewing documentation, counseling the patient, and discussing with other team members." ASSESSMENT ASSESSMENT Assessment fractures Date of Service: Mar 12, 2025 Billing Provider: MARKO PERRY MD Common Visit Codes: 60469-PYJ/OBS DISCH DAY >30min MARKO PERRY MD Mar 12, 2025 22:27
== END 2025-03-12 22:10 | DRG 551 ==
LOC: EDBD 16:11 → ER 16:14 → OVERFLOW 23:48 → WEST WING 03-07 02:41
PROVIDERS: ADMIT Internal Medicine; ATTEND Internal Medicine
DX: S22.081A Stable burst fracture of T11-T12 vertebra, initial encounter for closed fracture (principal); N17.0 Acute kidney failure with tubular necrosis; S22.021A Stable burst fracture of second thoracic vertebra, initial encounter for closed fracture; M81.0 Age-related osteoporosis without current pathological fracture; M25.78 Osteophyte, vertebrae; K21.9 Gastro-esophageal reflux disease without esophagitis; E83.51 Hypocalcemia; E78.5 Hyperlipidemia, unspecified; E03.9 Hypothyroidism, unspecified; E83.42 Hypomagnesemia; E11.22 Type 2 diabetes mellitus with diabetic chronic kidney disease; N18.9 Chronic kidney disease, unspecified; I12.9 Hypertensive chronic kidney disease with stage 1 through stage 4 chronic kidney disease, or unspecified chronic kidney disease; M47.819 Spondylosis without myelopathy or radiculopathy, site unspecified; Z90.49 Acquired absence of other specified parts of digestive tract; Z96.649 Presence of unspecified artificial hip joint; Z80.3 Family history of malignant neoplasm of breast; W18.39XA Other fall on same level, initial encounter; Y93.89 Activity, other specified; Y92.89 Other specified places as the place of occurrence of the external cause; Y99.8 Other external cause status; Z87.442 Personal history of urinary calculi
CPT/HCPCS: 36415; 72131; 72146; 73140; 80048; 80053; 81001; 82962; 83735; 84484; 85007; 85025; 85027; 85610; 85730; 96360; 97110; 97116; 97163; 97530; G0378; J1815; J2405

== ENCOUNTER 2025-04-24 09:25 | Outpatient (CLI) | payer MEDICARE, OTHER ==
[~2025-04-24 09:25] MED LIST changes: -CHOL20007 PO; -DOCU-265 PO; -DULA0.5I SC; -EZET-10 PO; -LISI-275 PO; -POTA-36 PO; -SEVE800T7 PO; -SOLI5TAB42 PO; -TOLT1CAP29 PO; -TRIO1TP TOP
[2025-04-24 09:55] LABS: Hematocrit 41.5 % (36.0-46.0); Hemoglobin 13.4 g/dL (12.2-16.2); Mean Corpuscular Hemoglobin 28.1 pg (28.0-32.0); Mean Corpuscular Volume 87.0 fL (80.0-100.0); Nucleated Red Blood Cells % 0.1 %
[2025-04-24 10:16] LABS: Urine Budding Yeast FEW /hpf (None Seen); Urine Protein, UAD 1+ (Negative)
[2025-04-24 10:56] LABS: Alanine Aminotransferase 14 U/L (7-40); Albumin 4.5 g/dL (3.2-4.8); Alkaline Phosphatase 78 U/L (46-116); Anion Gap 11 (5-15); BUN/Creatinine Ratio 8.3 (10.0-20.0); Bilirubin, Total 0.5 mg/dL (0.2-1.0); Blood Urea Nitrogen 10 mg/dL (9-23); Calcium 9.1 mg/dL (8.7-10.4); Carbon Dioxide 26 mmol/L (20-31); Chloride 105 mmol/L (98-107); Potassium 4.2 mmol/L (3.5-5.1); Sodium 142 mmol/L (136-145); Total Protein 7.6 g/dL (5.7-8.2)
[2025-04-24 11:04] LABS: Protein, Urine 68.4 mg/dL (1-14)
[2025-04-24 11:05] LABS: Glucose 110 mg/dL (74-106)
== END 2025-04-24 17:00 | disposition home or self-care (01) ==
LOC: LAB 09:25
PROVIDERS: ATTEND Internal Medicine Nephrology
DX: N18.30 Chronic kidney disease, stage 3 unspecified (principal); E56.9 Vitamin deficiency, unspecified; E21.5 Disorder of parathyroid gland, unspecified; D63.1 Anemia in chronic kidney disease; R80.9 Proteinuria, unspecified
CPT/HCPCS: 36415; 80053; 81001; 82570; 84156; 85025; 87086

== ENCOUNTER 2025-06-18 11:01 | Outpatient (CLI) | payer MEDICARE, OTHER | END 2025-06-18 17:00 | disposition home or self-care (01) | LOC: Rad HDHVI 11:01 | PROVIDERS: ATTEND Internal Medicine Cardiovascular Disease | DX: I10 Essential (primary) hypertension (principal); R06.02 Shortness of breath | CPT/HCPCS: 93306 ==